=== PATIENT | female | born 1945 | race Caucasian/White ===

== ENCOUNTER 2019-10-31 20:39 | Observation (INO) | payer MEDICARE, SELFPAY ==
[2019-10-31] VITALS (9 sets, daily range): BP systolic 139–188; BP diastolic 63–100; PULSE 65–91; RESP 18–22; TEMP 36.4–36.6; O2SAT 97–99; BMI 35.9
--- NOTE | ~2019-10-31 | XR_ITS ---
EXAMINATION: XR chest 2V DATE: 10/31/2019 22:20 INDICATION: Left-sided chest pain TECHNIQUE: AP and lateral views of the chest are obtained. COMPARISON: 12/31/2018 FINDINGS: The lungs are free of acute opacities. There is no pleural effusion or pneumothorax. The ca rdiomediastinal silhouette is normal. There is mild thoracic spondylosis. IMPRESSION: 1. No acute cardiopulmonary abnormality. Reviewed, dictated and finalized at location A.
--- NOTE | 2019-10-31 20:50 | ECG_ITS ---
Measurements Intervals [place] Rate: 62 P: 160 MO: 159 QRS: 179 QRSD: 95 T: 148 QT: 393 QTc: 401 Interpretive Statements SINUS RHYTHM LIMB LEAD REVERSAL BASELINE ARTIFACT- II, III, AVF ATYPICAL ECG Electronically Signed On 11-01-2019 8:30:11 CDT by Jack Baker D.O.
--- NOTE | 2019-10-31 20:53 | ED.CHESTPAIN ---
HPI - Chest Pain General Chief Complaint: Chest Pain Stated Complaint: heart palpitation Time Seen by Provider: 10/31/19 20:51 Source: patient Mode of arrival: ambulatory Limitations: no limitations History of Present Illness HPI narrative: Patient is a 74-year-old female who presents to the emergency department with complaint of chest pain. She reports onset of symptoms around 1800 this evening. She locates the pain in the left side of her chest and describes it as a pressure. Patient is denying any other associated symptoms and denies any known cardiac history. Patient states the pain is still present, but better than when it started. complaint: chest pain Timing of current episode: still present Pain radiation: none Quality: other (pressure) Relieving factors: nothing Exacerbating factors: nothing Treatment prior to arrival: none Risk Factors Coronary artery disease risk factors: diabetes, hyperlipidemia and hypertension Related Data Home Medications Medication Instructions Recorded Confirmed fluphenazine HCl 5 mg tablet 5 mg PO BID tablet 06/24/19 10/31/19 insulin aspar prt-insulin aspart 90 unit SUB-Q QPM ml 06/24/19 10/31/19 100 unit/mL (70-30) subcutaneous soln sertraline 25 mg tablet 25 mg PO DAILY 09/07/19 10/31/19 Allergies Allergy/AdvReac Type Severity Reaction Status Date / Time No Known Allergies Allergy Verified 10/31/19 22:37 Review of Systems Review of Systems: All systems reviewed & are unremarkable except as noted in HPI and below Constitutional: Constitutional: Denies fever(s) Cardiovascular: Cardiovascular: Reports chest pain Respiratory: Respiratory: Denies cough and Denies dyspnea Gastrointestinal: Gastrointestinal: Denies nausea and Denies vomiting [facility] Past Medical History Medical History Alzheimer's dementia Diabetic peripheral neuropathy Fatty liver GERD (gastroesophageal reflux disease) Hemiparesis History of stroke with current residual effects HLD (hyperlipidemia) HTN (hypertension), benign Hypothyroidism Iron deficiency anemia Long-term insulin use MDD (major depressive disorder) Seizure disorder Type 2 diabetes mellitus without complications Surgical History Surgical History History of tubal ligation Family History Family History Father Family history of malignant neoplasm, Onset Age: 74 Patient's father is Family history of arthritis Family history of congestive heart failure Family history of heart disease in male family member before age 55 Family history of coronary artery disease Mother Family history of malignant neoplasm of brain, Onset Age: 65 Patient's mother is Depression Family history of lung cancer Family history of lung disease Family history of malignant neoplasm of breast in first degree relative Sibling Family history of cataracts Family history of kidney disease Family history of heart disease in male family member before age 55 Other Diabetes mellitus Social History Social History Smoking packs per day: 0 Smoking cigarettes per day: 0.0 Years smoked: 0 Smoking pack-years: 0.00 Smoking status: Never smoker Second hand tobacco smoke exposure: No Alcohol intake: never Drinks per week: 0 Substance use: never Substance use type: does not use Gender identity (if verbalized by the patient): Female Exam Const: General: cooperative, no acute distress and alert Nutritional Appearance: well nourished Orientation/consciousness: patient oriented x3 Limitations: no limitations HENMT: Mouth: Yes lip normal and Yes moist mucous membranes Resp: Effort & Inspection: normal respiratory effort Auscultation: clear to auscultation bilaterally Cardio:
[2019-10-31 20:58] LABS: Basophils Absolute Auto 0.1 K/mm3 (0.0-0.1); Basophils Percent Auto 0.5 % (0.2-1.2); Eosinophils Absolute Auto 0.2 K/mm3 (0-0.3); Eosinophils Percent Auto 1.6 % (0-4.4); Hematocrit 38.4 % (37.0-47.0); Hemoglobin 12.1 g/dL (12.0-15.0); Immature Granulocyte Absolute 0.02 K/mm3 (0.00-0.031); Immature Granulocyte Percent A 0.2 % (0-0.5); Lymphocytes Percent Auto 53.8 % (18.3-44.2); Mean Corpuscular HGB Conc 31.5 g/dl (32-36); Mean Corpuscular Hemoglobin 28.4 pg (26-34); Mean Corpuscular Volume 90.1 fl (80-100); Mean Platelet Volume 10.8 fl (7.4-10.4); Monocytes Absolute Auto 0.8 K/mm3 (0.1-0.6); Monocytes Percent Auto 8.3 % (2.6-8.5); Neutrophils Absolute Auto 3.2 K/mm3 (1.3-6.7); Neutrophils Percent Auto 35.6 % (45.5-73.1); Platelet Count Result 256 k/mm3 (150-375); Red Blood Count 4.26 M/mm3 (4.2-5.4); Red Cell Distribution Width 12.8 % (11.5-14.5); White Blood Count 9.1 K/mm3 (4.5-10.0)
[2019-10-31] MEDS: ASPIRIN 81 MG CHEWABLE TABLET 324 MG PO (21:07)
[2019-10-31 21:08] LABS: Prothrombin Time 12.9 Seconds (11.1-14.7)
[2019-10-31 21:09] LABS: Partial Thromboplastin Time 31.2 SECONDS (22.3-36.8)
[2019-10-31 21:10] LABS: Blood Urea Nitrogen 11 mg/dL (7-17); Calcium 9.5 mg/dL (8.4-10.2); Carbon Dioxide 31 mmol/L (22-30); Chloride 95 mmol/L (98-107); Estimated Glomerular Filt Rate > 60; Glucose 250 mg/dL (65-105); Potassium 3.5 mmol/L (3.4-5.0); Sodium 137 mmol/L (137-145)
[2019-10-31 21:22] LABS: Troponin I < 0.012 ng/mL (0.000-0.034)
[2019-11-01] VITALS (7 sets, daily range): BP systolic 121–133; BP diastolic 52–63; PULSE 60–77; RESP 16–18; TEMP 35.9–36.1; O2SAT 18–97
--- NOTE | 2019-11-01 00:30 | PC.NURSE ---
This patient, Gaye Roger, was admitted to IMU Room 203-01. Patient/family oriented to hospital policies and general routines including ID bracelet, bed and alarms, visiting hours, pain management, procedures, bathroom and other care routines, personal items, smoking policy, room service/diet, and visiting hours. Valuables list has been completed. Patient encouraged to report perceived risks to care and to ask questions if they do not understand what they are told or what they should do.
[2019-11-01 00:35] LABS: Troponin I < 0.012 ng/mL (0.000-0.034)
[2019-11-01 00:44] LABS: Glucose Point of Care 130 (65-105)
--- NOTE | 2019-11-01 01:06 | PM.IMHP ---
H&P: HPI History of Present Illness Chief complaint: Left shoulder pain+ Narrative: This is a 74 year old Diabetic Female with known HTN, hypothyroidism, and hyperlipidemia who presented to the hospital tonight with a complaint of left shoulder and left lateral chest wall discomfort that started earlier yesterday afternoon. The patient's discomfort worsens with any movement of her left arm. She denies any recent falls or trauma to her left arm. She also denies any recent repetitive activity involving her left arm. The patient has no previous history of CAD+. She is known to have a systolic heart murmur for many years. She denies any associated symptoms tonight. The patient was evaluated in the ER and was treated with aspirin and nitro. Cardiology was consulted by ER provider. Her troponin has been negative and EKG is unremarkable. We have been asked to admit the patient to the hospital for chest pain rule out. On further questioning she denies any other symptoms. No history of early CAD+ in her family and the patient has no history of tobacco abuse. Review of Systems Review of Systems: All systems reviewed & are unremarkable except as noted in HPI and below PMFSH Past Medical History Medical History Alzheimer's dementia Diabetic peripheral neuropathy Fatty liver GERD (gastroesophageal reflux disease) Hemiparesis History of stroke with current residual effects HLD (hyperlipidemia) HTN (hypertension), benign Hypothyroidism Iron deficiency anemia Long-term insulin use MDD (major depressive disorder) Seizure disorder Type 2 diabetes mellitus without complications Surgical History Surgical History History of tubal ligation Family History Family History Father Family history of malignant neoplasm, Onset Age: 74 Patient's father is Family history of arthritis Family history of congestive heart failure Family history of heart disease in male family member before age 55 Family history of coronary artery disease Mother Family history of malignant neoplasm of brain, Onset Age: 65 Patient's mother is Depression Family history of lung cancer Family history of lung disease Family history of malignant neoplasm of breast in first degree relative Sibling Family history of cataracts Family history of kidney disease Family history of heart disease in male family member before age 55 Other Diabetes mellitus Social History Social History Smoking packs per day: 0 Smoking cigarettes per day: 0.0 Years smoked: 0 Smoking pack-years: 0.00 Smoking status: Former smoker Second hand tobacco smoke exposure: Yes Alcohol intake: never Drinks per week: 0 Substance use: never Substance use type: does not use Gender identity (if verbalized by the patient): Female Spiritual care concerns: No Meds Home Medications and Allergies Home Medications Medication Instructions Recorded Confirmed Type aspirin 325 mg tablet 325 mg PO DAILY #30 tablet 05/11/19 10/31/19 Rx metformin 1,000 mg tablet 1,000 mg PO DAILY #180 tablet 05/11/19 10/31/19 Rx omeprazole 20 mg capsule,delayed 20 mg PO DAILY #90 cap 06/03/19 10/31/19 Rx release fluphenazine HCl 5 mg tablet 5 mg PO BID tablet 06/24/19 10/31/19 History insulin aspar prt-insulin aspart 25 unit SUB-Q BID ml 06/24/19 11/01/19 History 100 unit/mL (70-30) subcutaneous soln atorvastatin 80 mg tablet 80 mg PO DAILY #90 tablet 08/31/19 10/31/19 Rx sertraline 25 mg tablet 25 mg PO DAILY 09/07/19 10/31/19 History furosemide 20 mg tablet 20 mg PO QAM #90 tablet 09/22/19 10/31/19 Rx levothyroxine 200 mcg tablet 200 mcg PO DAILY #90 tablet 09/22/19 10/31/19 Rx donepezil [Aricept] 10 mg PO QPM 11/01/19 11/01/19 History hydroxyzine HCl
[2019-11-01] MEDS: hydrOXYzine HCL 25 MG TABLET PO (01:32)
[2019-11-01] MEDS: DONEPEZIL HCL 10 MG TABLET PO (01:35)
[2019-11-01 03:12] LABS: Blood Urea Nitrogen 12 mg/dL (7-17); Calcium 9.2 mg/dL (8.4-10.2); Carbon Dioxide 28 mmol/L (22-30); Chloride 99 mmol/L (98-107); Cholesterol 171 mg/dL (0-200); Estimated CRCL calculation 64 ml/min; Estimated Glomerular Filt Rate > 60; Glucose 93 mg/dL (65-105); HDL Direct 54 mg/dL; Potassium 3.5 mmol/L (3.4-5.0); Sodium 137 mmol/L (137-145); Triglycerides 202 mg/dL (<150)
[2019-11-01 03:23] LABS: LDL Cholesterol Direct 84 mg/dL; Troponin I < 0.012 ng/mL (0.000-0.034)
[2019-11-01] MEDS: LEVOTHYROXINE SODIUM 100 MCG TABLET 200 MCG PO (06:35)
[2019-11-01 08:27] LABS: Glucose Point of Care 117 (65-105)
--- NOTE | 2019-11-01 09:10 | PM.DS ---
DS: Diagnosis Admitting Diagnosis Admitting Diagnosis: Pain in left shoulder Discharge Diagnosis (1) Left shoulder pain: Qualifiers: Chronicity: acute Qualified Code(s): M25.512 - Pain in left shoulder Code(s): M25.512 - Pain in left shoulder Status: Acute Assessment and Plan: Likely secondary to tenditinitis as the patient's left shoulder pain is easily reproducible with LUE maneuvers. ACS less likely as troponins were negative and ECG unremarkable. Patient states she never had any chest pain, and that it was mainly her shoulder pain Pain control as needed. Will provide referrals to Ortho in outpatient setting for evaluation and likely shoulder steroid injection. Also will give her the option of seeing her PCP first. As ACS unlikely, will inform Cardiology to not see patient Discharge home today (2) Chest pain: Qualifiers: Chest pain type: unspecified Qualified Code(s): R07.9 - Chest pain, unspecified Code(s): R07.9 - Chest pain, unspecified Status: Acute Assessment and Plan: Patient denies any chest pain today; she denies chest pain yesterday. Although patient does have dementia. In any regard, serial troponins negative, ECG unremarkable, CXR unremarkable. This appears more MSK in nature and localized to her left shoulder with manipulation of her shoulder Cardiology consult d/c F/u with PCP as outpatient Triglycerides elevated this stay, f/u with PCP (3) Chronic GERD: Code(s): K21.9 - Gastro-esophageal reflux disease without esophagitis Status: Chronic Assessment and Plan: Continue PPI therapy. (4) HLD (hyperlipidemia): Qualifiers: Hyperlipidemia type: unspecified Qualified Code(s): E78.5 - Hyperlipidemia, unspecified Code(s): E78.5 - Hyperlipidemia, unspecified Status: Chronic Assessment and Plan: Continue atorvastatin. (5) HTN (hypertension), benign: Code(s): I10 - Essential (primary) hypertension Status: Chronic Assessment and Plan: stable. BP 120s sys Continue losartan PO (6) Hypothyroidism: Qualifiers: Hypothyroidism type: unspecified Qualified Code(s): E03.9 - Hypothyroidism, unspecified Code(s): E03.9 - Hypothyroidism, unspecified Status: Chronic Assessment and Plan: Continue levothyroxine. (7) MDD (major depressive disorder): Qualifiers: Active/Remission status: remission status unspecified Major depression recurrence: unspecified whether recurrent Qualified Code(s): F32.9 - Major depressive disorder, single episode, unspecified Code(s): F32.9 - Major depressive disorder, single episode, unspecified Status: Chronic Assessment and Plan: Continue home antidepressants. (8) Seizure disorder: Code(s): G40.909 - Epilepsy, unspecified, not intractable, without status epilepticus Status: Chronic Assessment and Plan: Continue home meds. (9) Diabetes mellitus: Qualifiers: Diabetes mellitus complication status: without complication Diabetes mellitus supervisor intermediates insulin use: with snf use Diabetes mellitus type: type 2 Qualified Code(s): E11.9 - Type 2 diabetes mellitus without complications; Z79.4 - skilled nursing (current) use of insulin Code(s): E11.9 - Type 2 diabetes mellitus without complications Status: Chronic Assessment and Plan: BGL 117 this morning; morning 70/30 insulin lowered to 20 units this morning Accuchecks, SSI Coverage, Hypoglycemic protocol during stay Continue oral hyperglycemic agents and insulin at regular dosage Recommended patie
--- NOTE | 2019-11-25 11:30 | PM.PNCARD ---
Progress Note: A&P Additional Plan 74-year-old patient admitted with shoulder pain prompting cardiology consult from the emergency room staff. Hospitalist jorge is was confident this was not a cardiac problem and discharge the patient before I had the opportunity to see the patient Nic Lees MD [facility] Subjective Date/time seen: 11/25/19 11:30 Interval history: Consulted to see patient to was not to seen as she was discharged by the primary service prior to me making rounds Objective Data Meds/Results Radiology Results: ITS Impressions Chest X-Ray 11/01/19 08:08 IMPRESSION: 1. No acute cardiopulmonary abnormality. Quality VTE Prophylaxis VTE prophylaxis: mechanical ordered
== END 2019-11-01 10:12 | disposition home or self-care (01) ==
LOC: ANHED 23:04 → ANHIMU 23:10
PROVIDERS: Admitting Provider Family Medicine; Emergency Provider Emergency Medicine; PCP Family Medicine; Visit Provider Physician Assistant
DX: M25.512 Pain in left shoulder (principal); R07.89 Other chest pain; K21.9 Gastro-esophageal reflux disease without esophagitis; E78.5 Hyperlipidemia, unspecified; I10 Essential (primary) hypertension; E03.9 Hypothyroidism, unspecified; F32.9 Major depressive disorder, single episode, unspecified; G40.909 Epilepsy, unspecified, not intractable, without status epilepticus; E11.42 Type 2 diabetes mellitus with diabetic polyneuropathy; G30.9 Alzheimer's disease, unspecified; F02.80 Dementia in other diseases classified elsewhere, unspecified severity, without behavioral disturbance, psychotic disturbance, mood disturbance, and anxiety; Z79.4 Long term (current) use of insulin; Z79.82 Long term (current) use of aspirin; Z79.899 Other long term (current) drug therapy; Z87.891 Personal history of nicotine dependence; Z86.73 Personal history of transient ischemic attack (TIA), and cerebral infarction without residual deficits
CPT/HCPCS: 36415; 71046; 80048; 80061; 84484; 85025; 85610; 85730; 93005; 99285; A9270; G0378; J1815

== ENCOUNTER 2019-12-06 18:59 | Emergency (ER) | payer MEDICARE, SELFPAY ==
--- NOTE | ~2019-12-06 | XR_ITS ---
EXAMINATION: XR wrist LT min 3V DATE: 12/06/2019 19:24 INDICATION: Left wrist pain post fall TECHNIQUE: Posteroanterior, ulnar deviation, oblique, and lateral views of the left wrist were obtain ed. COMPARISON: none FINDINGS: Alignment is normal. There is an irregular thick contiguous appearing cortical contour along the radi al styloid process. No evident disruption of the cortex or linear lucency to suggest fracture. There is however overlying mild soft tissue swelling. No other lesions suspicious for fracture identified. 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 Moderate osteoarthritis at the fifth meta carpophalangeal joint. Mild osteoarthritis at the radiocarpal, midcarpal, triscaphe, first interphala ngeal and remaining metacarpophalangeal joints. IMPRESSION: 1. Mild soft tissue swelling overlying the radial styloid process demonstrates an irregular but intac t appearing cortical contour without a definitive fracture. Correlate for point tenderness at this lo cation. Reviewed, dictated and finalized at location A. IMPRESSION: 1. Mild soft tissue swelling overlying the radial styloid process demonstrates an irregular but intact appearing cortical contour without a definitive fractur e. Correlate for point tenderness at this location.
--- NOTE | 2019-12-06 19:04 | ED.GENADULT ---
HPI - General Adult General Chief complaint: Extremity Injury, Upper Stated complaint: left wrist injury Time Seen by Provider: 12/06/19 19:15 Source: patient Mode of arrival: ambulatory Limitations: no limitations History of Present Illness HPI narrative: 74-year-old female patient with a history of Alzheimer's, presents the express care accompanied by her daughter with complaints of left wrist pain. Patient's daughter states that that her mother called her today stating she needed to be seen because her left wrist was hurting after a fall. The details of her fall are unclear. Patient unable to tell me how she fell. Unable to tell me if she hit her head or not. Patient states that she did lose consciousness but then comes back and says she does not think she did. Patient unable to tell me at what time of the day that she fell. The daughter states that she lives at home with her father however her father tends not to take care of her believe her when she does complain of anything. Patient is guarding her left wrist at this time. Related Data Home Medications Medication Instructions Recorded Confirmed fluphenazine HCl 5 mg tablet 5 mg PO BID tablet 06/24/19 10/31/19 insulin aspar prt-insulin aspart 25 unit SUB-Q BID ml 06/24/19 11/01/19 100 unit/mL (70-30) subcutaneous soln sertraline 25 mg tablet 25 mg PO DAILY 09/07/19 10/31/19 donepezil [Aricept] 10 mg PO QPM 11/01/19 11/01/19 hydroxyzine HCl 25 mg PO HS PRN 11/01/19 11/01/19 losartan 50 mg PO DAILY 11/01/19 10/31/19 Allergies Allergy/AdvReac Type Severity Reaction Status Date / Time No Known Allergies Allergy Verified 12/06/19 19:32 Review of Systems Review of Systems: Narrative: CONSTITUTIONAL: Denies fever, chills, or sweats. EYES: Denies visual changes, redness, or discharge. ENT: Denies rhinorrhea, congestion, sore throat, or otalgia. CARDIOVASCULAR: Denies chest pain, palpitations, or edema. RESPIRATORY: Denies cough or dyspnea. GASTROINTESTINAL: Denies abdominal pain, nausea, vomiting, or diarrhea. GENITOURINARY: Denies dysuria or hematuria. SKIN: Denies rash or itching. MUSCULOSKELETAL: Denies back pain, joint pain, or myalgia. Positive left wrist NEUROLOGIC: Denies headache, numbness, or weakness. PSYCHIATRIC: Denies anxiety or depression. [facility] Past Medical History Medical History Alzheimer's dementia Diabetic peripheral neuropathy Fatty liver GERD (gastroesophageal reflux disease) Hemiparesis History of stroke with current residual effects HLD (hyperlipidemia) HTN (hypertension), benign Hypothyroidism Iron deficiency anemia Long-term insulin use MDD (major depressive disorder) Seizure disorder Type 2 diabetes mellitus without complications Surgical History Surgical History History of tubal ligation Family History Family History Father Family history of malignant neoplasm, Onset Age: 74 Patient's father is Family history of arthritis Family history of congestive heart failure Family history of heart disease in male family member before age 55 Family history of coronary artery disease Mother Family history of malignant neoplasm of brain, Onset Age: 65 Patient's mother is Depression Family history of lung cancer Family history of lung disease Family history of malignant neoplasm of breast in first degree relative Sibling Family history of cataracts Family history of kidney disease Family history of heart disease in male family member before age 55 Other Diabetes mellitus Social History Social History Smoking packs per day: 0 Smoking cigarettes per day: 0.0 Years smoked: 0 Smoking pack-years: 0.00 Smoking status: Former smoker Second hand tobacco smoke exposure: Yes
[2019-12-06 19:12] VITALS: BP 146/74; PULSE 108; RESP 18; TEMP 37.2; O2SAT 97
[2019-12-06 19:32] LABS: Glucose Point of Care 306 (65-105)
== END 2019-12-06 20:44 | disposition short-term general hospital (02) ==
PROVIDERS: Emergency Provider Nurse Practitioner Family; PCP Family Medicine
DX: S63.502A Unspecified sprain of left wrist, initial encounter (principal); G30.9 Alzheimer's disease, unspecified; F02.80 Dementia in other diseases classified elsewhere, unspecified severity, without behavioral disturbance, psychotic disturbance, mood disturbance, and anxiety; E11.42 Type 2 diabetes mellitus with diabetic polyneuropathy; I10 Essential (primary) hypertension; E03.9 Hypothyroidism, unspecified; Z79.4 Long term (current) use of insulin; G40.909 Epilepsy, unspecified, not intractable, without status epilepticus; W19.XXXA Unspecified fall, initial encounter
CPT/HCPCS: 73110; 99213; G0463

== ENCOUNTER 2022-09-28 00:55 | Day surgery (SDC) | payer MEDICARE, SELFPAY ==
[2022-09-14 14:01] VITALS: BMI 34.4
[2022-09-28 06:27] VITALS: BP 143/75; PULSE 90; RESP 20; TEMP 36.2; O2SAT 100; BMI 34.6
[2022-09-28] MEDS: LACTATED RINGERS 1,000 ML 150 ML IV CONT (06:39)
[2022-09-28 06:42] LABS: Glucose Point of Care 129 mg/dl (65-105)
--- NOTE | 2022-09-28 06:52 | WPDANESEPPF ---
Anes - Initial Pre Proc Eval Procedure: Operation Date: 09/28/22 07:30 Proposed Procedures p Colonoscopy - Orlando Aleman MD Date/Time: 09/28/22 06:52 Surgeon: Orlando Aleman MD Pre Op Diagnosis: RLQP, LLQP, other fecal abnormalities Patient Data Age: 77 Gender: F Height: 1.63 m Weight: 91.5 kg Last Vital Signs Temp 36.2 C L 09/28/22 06:27 Pulse 90 09/28/22 06:27 Resp 20 09/28/22 06:27 BP 143/75 H 09/28/22 06:27 Pulse Ox 100 09/28/22 06:27 O2 Del Method Room Air 09/28/22 06:27 Allergies Allergy/AdvReac Type Severity Reaction Status Date / Time No Known Allergies Allergy Verified 09/28/22 06:25 Home Medications Medication Instructions Recorded Confirmed Type insulin aspar prt-insulin aspart 25 unit subcut BID 06/24/19 09/14/22 History 100 unit/mL (70-30) subcutaneous soln (Novolog Mix 70-30 U-100 Insuln) hydroxyzine HCl 25 mg tablet 25 mg PO HS PRN Sleep 11/01/19 09/14/22 History donepezil 10 mg tablet (Aricept) 10 mg PO QPM #90 tabs 04/19/20 09/14/22 Rx fluphenazine HCl 5 mg tablet 2.5 mg PO BID 01/31/21 09/14/22 History aspirin 81 mg tablet,delayed 81 mg PO DAILY 05/01/21 09/14/22 History release (Adult Aspirin Regimen) ferrous sulfate 325 mg (65 mg 325 mg PO DAILY #90 tabs 05/01/21 09/14/22 Rx iron) tablet,delayed release sertraline 25 mg tablet (Zoloft) 12.5 mg PO DAILY 06/05/21 09/14/22 History losartan 100 mg tablet See Rx Instructions .Route 09/06/21 09/14/22 Rx .COMPLEX #90 tabs furosemide 20 mg tablet See Rx Instructions .Route 01/22/22 09/14/22 Rx .COMPLEX #90 tabs levothyroxine 125 mcg tablet 125 mcg PO DAILY #90 tabs 05/03/22 09/14/22 Rx lidocaine 5 % topical patch 1 patch topical DAILY PRN pain #15 07/30/22 09/14/22 Rx ea dicyclomine 10 mg capsule 10 mg PO TID PRN abdominal 09/05/22 09/14/22 Rx discomfort #90 caps atorvastatin 80 mg tablet See Rx Instructions .Route 09/14/22 09/14/22 Rx .COMPLEX #90 tabs metformin 1,000 mg tablet See Rx Instructions .Route 09/14/22 09/14/22 Rx .COMPLEX #180 tabs omeprazole 20 mg capsule,delayed See Rx Instructions .Route 09/14/22 09/14/22 Rx release .COMPLEX #90 caps blood-glucose meter (ReliOn Prime #1 ea 09/27/22 Rx Meter) Laboratory Tests 09/28/22 06:37 POC Capillary Glucose 129 mg/dl H mg/dl (65-105) Patient hx anesthesia problems: none Family hx anesthesia problems: none Results Review: All pre-operative results and documents have been reviewed as part of the pre-operative evaluation. [facility] Past Medical History Medical History (Updated 09/05/22 @ 16:[address] Ramirez APN-[place]) Alzheimer's dementia Bilateral lower abdominal cramping Diabetic peripheral neuropathy Fall Fatty liver GERD (gastroesophageal reflux disease) Hemiparesis History of stroke with current residual effects HLD (hyperlipidemia) HTN (hypertension), benign Hypothyroidism Iron deficiency anemia Left wrist pain Long-term insulin use Loose stools MDD (major depressive disorder) Obesity Seizure disorder Type 2 diabetes mellitus without complications Surgical History Surgical History History of tubal ligation Family History Family History Father Family history of malignant neoplasm, Onset Age: 74 Patient's father is Family history of arthritis Family history of congestive heart failure Family history of heart disease in male family member before age 55 Family history of coronary artery disease Mother Family history of malignant neoplasm of brain, Onset Age: 65 Patient's mother is Depression Family history of lung cancer Family history of lung disease Family history of malignant neoplasm of breast in first degree relative Sibling Family history of cataracts Family history of kidney disease Family history of heart disease in male f
--- NOTE | 2022-09-28 07:37 | WPDHPUPDATE1 ---
History and Physical Update Update Date/Time: 09/28/22 07:37 History and Physical has been reviewed, including an updated exam of the patient. There are NO changes in the patient's condition. Risks, benefits, and alternatives have been discussed and questions answered. Patient agrees to proceed with procedure.
[2022-09-28 07:54] VITALS: BP 114/58; PULSE 68; RESP 19; O2SAT 100
[2022-09-28 08:04] VITALS: BP 118/46; PULSE 62; RESP 18; O2SAT 100
[2022-09-28 08:09] LABS: Glucose Point of Care 120 mg/dl (65-105)
[2022-09-28 08:14] VITALS: BP 128/69; PULSE 70; RESP 18; O2SAT 100
== END 2022-09-28 08:18 | disposition home or self-care (01) ==
PROVIDERS: PCP Family Medicine; Visit Provider Internal Medicine Gastroenterology
PROC: 0DJD8ZZ Inspection of Lower Intestinal Tract, Via Natural or Artificial Opening Endoscopic (ICD-10-PCS; CPT 45378; principal; 2022-09-28 07:30)
DX: R10.84 Generalized abdominal pain (principal); R19.5 Other fecal abnormalities; K64.8 Other hemorrhoids; G30.9 Alzheimer's disease, unspecified; F02.80 Dementia in other diseases classified elsewhere, unspecified severity, without behavioral disturbance, psychotic disturbance, mood disturbance, and anxiety; E11.42 Type 2 diabetes mellitus with diabetic polyneuropathy; K21.9 Gastro-esophageal reflux disease without esophagitis; I10 Essential (primary) hypertension; E78.5 Hyperlipidemia, unspecified; E03.9 Hypothyroidism, unspecified; D50.9 Iron deficiency anemia, unspecified; F32.A Depression, unspecified; K76.0 Fatty (change of) liver, not elsewhere classified; I69.359 Hemiplegia and hemiparesis following cerebral infarction affecting unspecified side; Z79.4 Long term (current) use of insulin; Z79.82 Long term (current) use of aspirin; Z79.84 Long term (current) use of oral hypoglycemic drugs; E66.9 Obesity, unspecified; Z68.34 Body mass index [BMI] 34.0-34.9, adult
CPT/HCPCS: 45378; 82948; J2704; J7120

== ENCOUNTER → 2022-12-26 10:11 | Outpatient (CLI) | payer MEDICARE, SELFPAY ==
--- NOTE | ~2022-12-26 | DEXA_ITS ---
Bone Density Report Name: ISABEL GEORGE Age: 77 Sex: Female Ethnicity: White Date of : 1945 Indication: postmenopausal; screening for osteoporosis; height loss; inflammatory bowel disease; rheumatoid arthritis; Referring Provider: Matthew Link Study: Bone densitometry was performed. Exam Date: December 26, 2022 Accession number: [id number] Bone Density: Region BMD T-score Z-score Classification AP Spine (L1-L4) 1.221 1.6 4.0 Normal Femoral Neck (Left) 0.746 -0.9 1.2 Normal Total Hip (Left) 1.082 1.2 3.0 Normal Femoral Neck (Right) 0.741 -1.0 1.1 Normal Total Hip (Right) 1.059 1.0 2.8 Normal Total Hip Mean 1.071 1.1 2.9 Normal World Health Organization criteria for BMD impression classify patients as: Normal (T-score at or above -1.0), Osteopenia (T-score between -1.0 and -2.5), or Osteoporosis (T-score at or below -2.5). 10-year Fracture Risk: FRAX not reported because: All T-scores for Spine Total, Hip Total, Femoral Neck at or above -1.0 Clinical Information Provided by Patient: Has rheumatoid arthritis Has used the following medications: Vitamin D Has the following medical conditions: Inflammatory bowel diseases, asthma, no treatment,IBS Patient maximum height was 64 Menopause Age: 53 No regular weight bearing exercise Drinks caffeinated beverages Onset of menses at age 13 Number of children 3 Missed period for more than 6 months in a row Impression: The patient has normal bone mass. Discussion: BONE DENSITY IS ABOVE THE MINIMUM DESIRABLE LEVEL AT ALL SKELETAL SITES TESTED. This patient?s bone mineral density is above the minimum desirable level (T-score -1.0 or better) at all sites measured. The patient should follow a healthful lifestyle (good nutrition with adequate calcium and vitamin D, and appropriate weight-bearing exercise). Follow-Up: Consider repeating this study in 5 years or sooner if there is some new clinical indication. Reported by: CRISTOBAL on 12/26/2022 10:47:00 AM. Reviewed, dictated and finalized [facility]
== END ==
PROVIDERS: PCP Family Medicine; Visit Provider Obstetrics & Gynecology
DX: M81.0 Age-related osteoporosis without current pathological fracture (principal)
CPT/HCPCS: 77080

== ENCOUNTER 2023-01-26 14:23 | Emergency (ER) | payer MEDICARE, SELFPAY ==
--- NOTE | ~2023-01-26 | XR_ITS ---
EXAMINATION: XR chest 2V Exam Date/Time: 01/26/2023 15:20 CDT HISTORY: SOB,CONGESTION Comparison: 10/31/2019. RESULT: Lines, tubes, and devices: None. Lungs and pleura: Diffuse interstitial opacities with cuffing. No focal consolidation. Apparent cindy pheral opacities likely related to summation artifact from soft tissues. Cardiomediastinal silhouette: Stable. Other: No acute osseous or upper abdominal finding. IMPRESSION: Interstitial edema. Reviewed, dictated and finalized at location [facility]. IMPRESSION: Interstitial edema.
[2023-01-26 14:40] VITALS: BP 108/46; PULSE 67; RESP 20; TEMP 36.6; O2SAT 98
--- NOTE | 2023-01-26 15:05 | ED.URI ---
HPI - URI/Sore Throat General Chief Complaint: Upper Respiratory Infection Stated Complaint: Sinus/SOB Time Seen by Provider: 01/26/23 15:05 Source: patient Mode of arrival: ambulatory Limitations: no limitations History of Present Illness HPI Narrative: 77-year-old female presents with complaint of nasal congestion, sore throat, cough, fatigue and body aches for 2 days. Afebrile. Denies chest pain and shortness of breath. Patient's daughter states giving vhvf-oqv-qusxynn Robitussin, Mucinex. Denies nausea vomiting diarrhea. Patient's daughter states patient lays in bed often and is concerned congestion will settle and chest and cause pneumonia. Also requesting stronger cough suppressant. Patient alert. No respiratory distress noted. All systems reviewed and negative except as noted above. Related Data Home Medications Medication Instructions Recorded Confirmed insulin aspar prt-insulin aspart 25 unit subcut BID 06/24/19 01/26/23 100 unit/mL (70-30) subcutaneous soln (Novolog Mix 70-30 U-100 Insuln) hydroxyzine HCl 25 mg tablet 25 mg PO HS PRN Sleep 11/01/19 01/26/23 fluphenazine HCl 5 mg tablet 2.5 mg PO BID 01/31/21 01/26/23 aspirin 81 mg tablet,delayed 81 mg PO DAILY 05/01/21 01/26/23 release (Adult Aspirin Regimen) sertraline 25 mg tablet (Zoloft) 12.5 mg PO DAILY 06/05/21 01/26/23 Allergies Allergy/AdvReac Type Severity Reaction Status Date / Time No Known Allergies Allergy Verified 01/26/23 14:41 Review of Systems Review of Systems: CONSTITUTIONAL: Denies fever, chills, or sweats. EYES: Denies visual changes, redness, or discharge. ENT: Reports rhinorrhea, congestion, sore throat. Denies otalgia. CARDIOVASCULAR: Denies chest pain, palpitations, or edema. RESPIRATORY: reports cough. Denies dyspnea. GASTROINTESTINAL: Denies abdominal pain, nausea, vomiting, or diarrhea. GENITOURINARY: Denies dysuria or hematuria. SKIN: Denies rash or itching. MUSCULOSKELETAL: Denies back pain, joint pain. Reports myalgia. NEUROLOGIC: Denies headache, numbness, or weakness. PSYCHIATRIC: Denies anxiety or depression. All other systems reviewed are negative, except as documented in HPI. PMFSH Past Medical History Medical History Alzheimer's dementia Bilateral lower abdominal cramping Diabetic peripheral neuropathy Fall Fatty liver GERD (gastroesophageal reflux disease) Hemiparesis History of stroke with current residual effects HLD (hyperlipidemia) HTN (hypertension), benign Hypothyroidism Iron deficiency anemia Left wrist pain Long-term insulin use Loose stools MDD (major depressive disorder) Obesity Seizure disorder Type 2 diabetes mellitus without complications Surgical History Surgical History History of tubal ligation Family History Family History Father Family history of malignant neoplasm, Onset Age: 74 Patient's father is Family history of arthritis Family history of congestive heart failure Family history of heart disease in male family member before age 55 Family history of coronary artery disease Mother Family history of malignant neoplasm of brain, Onset Age: 65 Patient's mother is Depression Family history of lung cancer Family history of lung disease Family history of malignant neoplasm of breast in first degree relative Sibling Family history of cataracts Family history of kidney disease Family history of heart disease in male family member before age 55 Other Diabetes mellitus Social History Social History Smoking packs per day: 0 Smoking cigarettes per day: 0.0 Years smoked: 0 Smoking pack-years: 0.00 Smoking status: Never smoker Second hand tobacco smoke exposure: Yes Alcohol intake: never Drinks p
== END 2023-01-26 16:10 | disposition home or self-care (01) ==
PROVIDERS: Emergency Provider Nurse Practitioner Family; PCP Family Medicine
DX: J06.9 Acute upper respiratory infection, unspecified (principal); Z20.822 Contact with and (suspected) exposure to COVID-19; G30.9 Alzheimer's disease, unspecified; F02.80 Dementia in other diseases classified elsewhere, unspecified severity, without behavioral disturbance, psychotic disturbance, mood disturbance, and anxiety; E11.42 Type 2 diabetes mellitus with diabetic polyneuropathy; K76.0 Fatty (change of) liver, not elsewhere classified; K21.9 Gastro-esophageal reflux disease without esophagitis; Z86.73 Personal history of transient ischemic attack (TIA), and cerebral infarction without residual deficits; E78.5 Hyperlipidemia, unspecified; I10 Essential (primary) hypertension; E03.9 Hypothyroidism, unspecified; E66.9 Obesity, unspecified; Z68.35 Body mass index [BMI] 35.0-35.9, adult; Z79.4 Long term (current) use of insulin; Z79.82 Long term (current) use of aspirin; F32.9 Major depressive disorder, single episode, unspecified; D50.9 Iron deficiency anemia, unspecified
CPT/HCPCS: 71046; 87426; 99213; C9803; G0463

== ENCOUNTER 2023-01-29 15:49 | Outpatient (CLI) | payer MEDICARE, SELFPAY ==
--- NOTE | ~2023-01-29 | US_ITS ---
Ultrasound of the left lower extremity CLINICAL HISTORY: Left anterior castro mass TECHNIQUE: Real-time sonographic imaging performed in the area of clinical concern. FINDINGS: There is more prominent, somewhat echogenic soft tissue superficially at the anterior left castro at the area of clinical concern. No posterior shadowing or heterogeneity evident. IMPRESSION: More prominent echogenic soft tissues superficially at the anterior left castro as compared to the righ t side. Large lipoma or other fatty lesion are considerations. Consider MR to better assess signal ch aracteristics of any mass lesion. Reviewed, dictated and finalized at location . IMPRESSION: More prominent echogenic soft tissues superficially at the anterior left castro a s compared to the right side. Large lipoma or other fatty lesion are considerat ions. Consider MR to better assess signal characteristics of any mass lesion.
== END 2023-01-29 15:50 | disposition home or self-care (01) ==
PROVIDERS: PCP Family Medicine; Visit Provider Family Medicine
DX: R22.42 Localized swelling, mass and lump, left lower limb (principal); M79.605 Pain in left leg
CPT/HCPCS: 76882

== ENCOUNTER 2023-02-09 10:50 | Outpatient (CLI) | payer MEDICARE, SELFPAY ==
--- NOTE | ~2023-02-09 | MR_ITS ---
MRI of the left lower extremity CLINICAL HISTORY: Swelling, mass TECHNIQUE: Sagittal T1-weighted and STIR images, coronal T1-weighted and STIR images, and axial T1-we ighted, T1 fat-sat, and STIR images were performed. Following intravenous administration of 15 cc Mul tiHance gadolinium, T1-weighted fat-sat imaging was performed in the axial and coronal planes. FINDINGS: Bone marrow signals are unremarkable. No fracture, marrow edema, or passive reaction. No ev idence for osteomyelitis. There are probable mild degenerative changes of both knees. No joint effusi on evident. Visualized musculature in the left calf demonstrates normal signal intensity. No muscle atrophy or ed maria del carmen identified. Subcutaneous soft tissues are unremarkable. No mass lesion or fluid collection identi fied. No abnormal postcontrast enhancement identified. IMPRESSION: No abnormal mass lesion or fluid collection seen. Mild degenerative change of both knees. Reviewed, dictated and finalized at [facility].
== END 2023-02-09 10:51 | disposition home or self-care (01) ==
PROVIDERS: PCP Family Medicine; Visit Provider Family Medicine
DX: R22.42 Localized swelling, mass and lump, left lower limb (principal)
CPT/HCPCS: 73720; A9577

== ENCOUNTER 2023-06-12 09:18 | Outpatient (CLI) | payer MEDICARE, SELFPAY ==
--- NOTE | ~2023-06-12 | CT_ITS ---
CT of the Abdomen and Pelvis: Indication: Abdominal pain Technique: 2.5 mm axial scans were obtained through the abdomen and pelvis following intravenous adm inistration of 100 cc of Omnipaque 350. Dose reduction technique was used on this scan by utilizing a utomated exposure control and iterative reconstruction technique. The dose-length product (DLP) was 1 052.25 mGy-cm. Findings: Scans through the lung bases demonstrate bibasilar chronic interstitial disease. The liver, spleen, pancreas, gallbladder, adrenals and kidneys are within normal limits. There are at herosclerotic calcifications of the aorta. No lymphadenopathy. No bowel obstruction or bowel wall thickening. There is no evidence to suggest acute appendicitis. Images through the pelvis were performed. Urinary bladder unremarkable. No adnexal mass seen. No asci jermaine. Impression: No significant abnormality seen in the abdomen/pelvis. Chronic bibasilar pulmonary interstitial disease. Reviewed, dictated and finalized at [facility]. E RECEPTIONIST Impression: No significant abnormality seen in the abdomen/pelvis. Chronic bibasilar pulmonary interstitial disease.
== END 2023-06-12 09:19 | disposition home or self-care (01) ==
PROVIDERS: PCP Family Medicine; Visit Provider Nurse Practitioner Family
DX: R10.32 Left lower quadrant pain (principal); J84.9 Interstitial pulmonary disease, unspecified
CPT/HCPCS: 74177; Q9967

== ENCOUNTER 2023-07-04 10:42 | Outpatient (CLI) | payer MEDICARE, SELFPAY ==
[2023-07-04 11:23] LABS: Hematocrit 35.8 % (37.0-47.0)
== END 2023-07-04 10:43 | disposition home or self-care (01) ==
LOC: ANHLAB 10:44
PROVIDERS: PCP Family Medicine; Visit Provider Nurse Practitioner Family
DX: D64.9 Anemia, unspecified (principal)
CPT/HCPCS: 36415; 85014; 85018

== ENCOUNTER 2023-07-19 00:19 | Day surgery (SDC) | payer MEDICARE, SELFPAY ==
[2023-06-24 13:13] VITALS: BMI 35.2
--- NOTE | 2023-07-17 10:34 | SUR.PREOP ---
Patient called regarding upcoming procedure. Reviewed preop instructions, appointment times, and procedure prep.
--- NOTE | 2023-07-17 10:39 | SUR.PREOP ---
Spoke with daughter about pt's appointment.
--- NOTE | 2023-07-18 17:31 | PM.HPGS ---
History of Present Illness History of Present Illness Consent: Risks, benefits, and alternatives have been discussed and questions answered. Patient agrees to proceed with procedure. Chief complaint: GERD without esophagitis, nausea with vomiting Narrative: Gaye Roger is a 78 year old female referred for investigation of persistent nausea and vomiting Review of Systems Review of Systems: All systems reviewed & are unremarkable except as noted in HPI and below PMFSH Past Medical History Medical History Alzheimer's dementia Bilateral lower abdominal cramping Diabetic peripheral neuropathy Fall Fatty liver GERD (gastroesophageal reflux disease) Hemiparesis History of stroke with current residual effects HLD (hyperlipidemia) HTN (hypertension), benign Hypothyroidism Iron deficiency anemia Left wrist pain Long-term insulin use Loose stools MDD (major depressive disorder) Nausea vomiting and diarrhea Obesity Seizure disorder Type 2 diabetes mellitus without complications Surgical History Surgical History History of tubal ligation Family History Family History Father Family history of malignant neoplasm, Onset Age: 74 Patient's father is Family history of arthritis Family history of congestive heart failure Family history of heart disease in male family member before age 55 Family history of coronary artery disease Mother Family history of malignant neoplasm of brain, Onset Age: 65 Patient's mother is Depression Family history of lung cancer Family history of lung disease Family history of malignant neoplasm of breast in first degree relative Sibling Family history of cataracts Family history of kidney disease Family history of heart disease in male family member before age 55 Other Diabetes mellitus Social History Social History Smoking packs per day: 0 Smoking cigarettes per day: 0.0 Years smoked: 0 Smoking pack-years: 0.00 Smoking status: Never smoker Second hand tobacco smoke exposure: Yes Alcohol intake: never Drinks per week: 0 Substance use: never Substance use type: does not use Living arrangements: with family Occupation/Education: retired Gender identity (if verbalized by the patient): Female Spiritual care concerns: No Meds Home Medications and Allergies Home Medications Medication Instructions Recorded Confirmed Type insulin aspar prt-insulin aspart 25 unit subcut BID 06/24/19 07/19/23 History 100 unit/mL (70-30) subcutaneous soln (Novolog Mix 70-30 U-100 Insuln) aspirin 81 mg tablet,delayed 81 mg PO DAILY 05/01/21 07/19/23 History release (Adult Aspirin Regimen) ferrous sulfate 325 mg (65 mg 325 mg PO DAILY #90 tabs 05/01/21 07/19/23 Rx iron) tablet,delayed release sertraline 25 mg tablet (Zoloft) 12.5 mg PO DAILY 06/05/21 07/19/23 History atorvastatin 80 mg tablet See Rx Instructions .Route 09/14/22 07/19/23 Rx .COMPLEX #90 tabs blood-glucose meter (ReliOn Prime #1 ea 09/27/22 07/19/23 Rx Meter) levothyroxine 125 mcg tablet 125 mcg PO DAILY #90 tabs 12/25/22 07/19/23 Rx inhalational spacing device #1 ea 01/26/23 07/19/23 Rx (Aerochamber Plus Z Stat spacer) donepezil 10 mg tablet (Aricept) 10 mg PO QPM #90 tabs 03/28/23 07/19/23 Rx bismuth subsalicylate 262 mg/15 mL 524 mg PO QID 06/04/23 07/19/23 History oral suspension (Pepto-Bismol) omeprazole 40 mg capsule,delayed 40 mg PO DAILY 1 month #30 caps 06/05/23 07/19/23 Rx release furosemide 20 mg tablet See Rx Instructions .Route 06/10/23 07/19/23 Rx .COMPLEX #90 tabs metformin 1,000 mg tablet See Rx Instructions .Route 06/10/23 07/19/23 Rx .COMPLEX #180 tabs ondansetron HCl 4 mg tablet 4 mg PO Q8H #20 tabs
[2023-07-19] MEDS: LACTATED RINGERS 1,000 ML 150 ML IV CONT (06:47)
[2023-07-19 06:49] VITALS: BP 125/72; PULSE 96; RESP 20; TEMP 36.5; O2SAT 98; BMI 34.4
[2023-07-19 06:50] LABS: Glucose Point of Care 150 mg/dl (65-105)
--- NOTE | 2023-07-19 07:26 | WPDANESEPPF ---
Anes - Initial Pre Proc Eval Procedure: Operation Date: 07/19/23 07:30 Proposed Procedures p Esophagogastroduodenoscopy - Russ Tinajero MD Date/Time: 07/19/23 07:26 Surgeon: Russ Tinajero MD Pre Op Diagnosis: GERD without esophagitis, nausea with vomiting Patient Data Age: 78 Gender: F Height: 1.63 m Weight: 91 kg Last Vital Signs Temp 97.7 F 07/19/23 06:49 Pulse 96 07/19/23 06:49 Resp 20 07/19/23 06:49 BP 125/72 07/19/23 06:49 Pulse Ox 98 07/19/23 06:49 O2 Del Method Room Air 07/19/23 06:49 Allergies Allergy/AdvReac Type Severity Reaction Status Date / Time No Known Allergies Allergy Verified 07/19/23 06:10 Home Medications Medication Instructions Recorded Confirmed Type insulin aspar prt-insulin aspart 25 unit subcut BID 06/24/19 07/19/23 History 100 unit/mL (70-30) subcutaneous soln (Novolog Mix 70-30 U-100 Insuln) aspirin 81 mg tablet,delayed 81 mg PO DAILY 05/01/21 07/19/23 History release (Adult Aspirin Regimen) ferrous sulfate 325 mg (65 mg 325 mg PO DAILY #90 tabs 05/01/21 07/19/23 Rx iron) tablet,delayed release sertraline 25 mg tablet (Zoloft) 12.5 mg PO DAILY 06/05/21 07/19/23 History atorvastatin 80 mg tablet See Rx Instructions .Route 09/14/22 07/19/23 Rx .COMPLEX #90 tabs blood-glucose meter (ReliOn Prime #1 ea 09/27/22 07/19/23 Rx Meter) levothyroxine 125 mcg tablet 125 mcg PO DAILY #90 tabs 12/25/22 07/19/23 Rx inhalational spacing device #1 ea 01/26/23 07/19/23 Rx (Aerochamber Plus Z Stat spacer) donepezil 10 mg tablet (Aricept) 10 mg PO QPM #90 tabs 03/28/23 07/19/23 Rx bismuth subsalicylate 262 mg/15 mL 524 mg PO QID 06/04/23 07/19/23 History oral suspension (Pepto-Bismol) omeprazole 40 mg capsule,delayed 40 mg PO DAILY 1 month #30 caps 06/05/23 07/19/23 Rx release furosemide 20 mg tablet See Rx Instructions .Route 06/10/23 07/19/23 Rx .COMPLEX #90 tabs metformin 1,000 mg tablet See Rx Instructions .Route 06/10/23 07/19/23 Rx .COMPLEX #180 tabs ondansetron HCl 4 mg tablet 4 mg PO Q8H #20 tabs 07/03/23 07/19/23 Rx famotidine 40 mg tablet (Pepcid) 40 mg PO QHS 1 month #30 tabs 07/04/23 07/19/23 Rx dicyclomine 10 mg capsule See Rx Instructions .Route 07/16/23 07/19/23 Rx .COMPLEX #90 caps Laboratory Tests 07/19/23 06:45 POC Capillary Glucose 150 H mg/dl (65-105) Patient hx anesthesia problems: none Family hx anesthesia problems: none Results Review: All pre-operative results and documents have been reviewed as part of the pre-operative evaluation. [facility] Past Medical History Medical History Alzheimer's dementia Bilateral lower abdominal cramping Diabetic peripheral neuropathy Fall Fatty liver GERD (gastroesophageal reflux disease) Hemiparesis History of stroke with current residual effects HLD (hyperlipidemia) HTN (hypertension), benign Hypothyroidism Iron deficiency anemia Left wrist pain Long-term insulin use Loose stools MDD (major depressive disorder) Nausea vomiting and diarrhea Obesity Seizure disorder Type 2 diabetes mellitus without complications Surgical History Surgical History History of tubal ligation Family History Family History Father Family history of malignant neoplasm, Onset Age: 74 Patient's father is Family history of arthritis Family history of congestive heart failure Family history of heart disease in male family member before age 55 Family history of coronary artery disease Mother Family history of malignant neoplasm of brain, Onset Age: 65 Patient's mother is Depression Family history of lung cancer Family history of lung disease Family history of malignant neoplasm of breast in first degree relative Sibling Family history of cataracts Family histo
--- NOTE | 2023-07-19 07:38 | SUR.OPER ---
TOW BAR DRIVER used oral suction during procedure for excess secretions.
[2023-07-19 07:42] VITALS: BP 125/63; PULSE 79; RESP 20; O2SAT 96
[2023-07-19 07:52] VITALS: BP 121/50; PULSE 84; RESP 16; O2SAT 99
[2023-07-19 08:02] VITALS: BP 112/78; PULSE 79; RESP 16; O2SAT 99
[2023-07-19 08:07] LABS: Glucose Point of Care 132 mg/dl (65-105)
== END 2023-07-19 08:17 | disposition home or self-care (01) ==
PROVIDERS: PCP Family Medicine; Visit Provider Internal Medicine Gastroenterology
PROC: 0DJ08ZZ Inspection of Upper Intestinal Tract, Via Natural or Artificial Opening Endoscopic (ICD-10-PCS; CPT 43235; principal; 2023-07-19 07:30)
DX: K21.00 Gastro-esophageal reflux disease with esophagitis, without bleeding (principal); R11.2 Nausea with vomiting, unspecified; I10 Essential (primary) hypertension; E78.5 Hyperlipidemia, unspecified; E11.9 Type 2 diabetes mellitus without complications; G40.909 Epilepsy, unspecified, not intractable, without status epilepticus; G30.9 Alzheimer's disease, unspecified; F02.80 Dementia in other diseases classified elsewhere, unspecified severity, without behavioral disturbance, psychotic disturbance, mood disturbance, and anxiety; E03.9 Hypothyroidism, unspecified; Z79.4 Long term (current) use of insulin; E66.9 Obesity, unspecified; Z68.34 Body mass index [BMI] 34.0-34.9, adult
CPT/HCPCS: 43239; 82948; 87081; J2704; J7120

== ENCOUNTER 2023-07-24 11:53 | Outpatient (CLI) | payer MEDICARE, SELFPAY ==
[2023-07-24 12:38] LABS: Alanine Aminotransferase 20 U/L (6-35); Albumin Level 4.2 g/dL (3.5-5.1); Alkaline Phosphatase 80 U/L (38-126); Anion Gap 9 mmol/L (8-16); Aspartate Amino Transferase 29 U/L (14-36); Bilirubin,Total 0.4 mg/dL (0.2-1.3); Blood Urea Nitrogen 12 mg/dL (7-17); Calcium 9.6 mg/dL (8.4-10.2); Carbon Dioxide 28 mmol/L (22-30); Chloride 98 mmol/L (98-107); Estimated Glomerular Filt Rate 54; Glucose 217 mg/dL (65-110); Potassium 4.5 mmol/L (3.4-5.0); Sodium 135 mmol/L (137-145)
[2023-07-24 13:04] LABS: Influenza A QL RT-PCR Negative (Negative); Influenza B QL RT-PCR Negative (Negative); RSV RNA, RT-PCR Negative (Negative); SARS-CoV-2 RNA PCR Negative (Negative)
[2023-07-24 13:46] LABS: Hemoglobin A1C 6.7 % (<5.7)
== END 2023-07-24 11:54 | disposition home or self-care (01) ==
LOC: ANHLAB 11:57
PROVIDERS: PCP Family Medicine; Visit Provider Family Medicine
DX: J06.9 Acute upper respiratory infection, unspecified (principal); E03.9 Hypothyroidism, unspecified; I10 Essential (primary) hypertension; E11.9 Type 2 diabetes mellitus without complications; Z20.822 Contact with and (suspected) exposure to COVID-19
CPT/HCPCS: 36415; 80053; 83036; 84443; 87637

== ENCOUNTER 2023-08-05 09:02 | Outpatient (CLI) | payer MEDICARE, SELFPAY ==
--- NOTE | ~2023-08-05 | US_ITS ---
Limited Abdominal Sonogram: Real-time sonographic imaging of the right upper quadrant was performed. Clinical History: Nausea and vomiting Findings: The liver appears echogenic, with no evidence of mass lesion or bile duct dilatation. Main portal vein demonstrates normal direction of flow. The gallbladder is well distended, and appears no rmal with no evidence of gallstone or wall thickening. The common bile duct measures 5 mm. The visua lized pancreas, aorta, and IVC are unremarkable. Impression: Diffuse fatty infiltration of the liver. Reviewed, dictated and finalized at location M. L CEILING HANGER Impression: Diffuse fatty infiltration of the liver.
== END 2023-08-05 09:03 | disposition home or self-care (01) ==
LOC: ANHIMG 09:08
PROVIDERS: PCP Family Medicine; Visit Provider Internal Medicine Gastroenterology
DX: R11.2 Nausea with vomiting, unspecified (principal); K76.0 Fatty (change of) liver, not elsewhere classified
CPT/HCPCS: 76705

== ENCOUNTER 2023-12-25 09:27 | Outpatient (CLI) | payer MEDICARE, SELFPAY ==
--- NOTE | ~2023-12-25 | NM_ITS ---
EXAMINATION: NM hepatobiliary wo pharm DATE: 12/25/2023 13:42 INDICATION: Nausea with vomiting, unspecified. COMPARISON: CT abdomen and pelvis 06/12/23 TECHNIQUE: 5 mCi Tc-99m mebrofenin (Choletec) was administered intravenously. Scintigraphic images o f the abdomen were obtained for one hour. Then, the patient drank 8 oz Ensure, and imaging was contin ued for 60 minutes. FINDINGS: There is normal clearance of radiotracer from the blood pool. There is homogeneous tracer u ptake by the liver. Activity progresses to the bowel and gallbladder. Gallbladder ejection fraction (GBEF) was 25%. Note that with this technique, normal GBEF >= 33%. IMPRESSION: 1. Low gallbladder ejection fraction, consistent with gallbladder dysfunction and/or chronic cholecy stitis. Reviewed, dictated and finalized at location A. IMPRESSION: 1. Low gallbladder ejection fraction, consistent with gallbladder dysfunction and/or chronic cholecystitis.
== END 2023-12-25 09:28 | disposition home or self-care (01) ==
PROVIDERS: PCP Family Medicine; Visit Provider Nurse Practitioner Family
DX: K82.8 Other specified diseases of gallbladder (principal)
CPT/HCPCS: 78226; A9537

== ENCOUNTER 2024-01-22 10:11 | Outpatient (CLI) | payer MEDICARE, SELFPAY ==
--- NOTE | 2024-01-22 10:25 | ECG_ITS ---
Test Date: 2024-01-22 10:40:03 Measurements Intervals [place] Rate: 72 P: 8 NC: 164 QRS: -10 QRSD: 84 T: 15 QT: 376 QTc: 412 Interpretive Statements SINUS RHYTHM DELAYED PRECORDIAL R/S TRANSITION VOLTAGE CRITERIA FOR LVH BASELINE ARTIFACT- V4-V6 BORDERLINE ECG No previous ECG available for comparison Electronically Signed On 01-22-2024 17:36:52 CDT by Jack Baker D.O.
[2024-01-22 11:11] LABS: Hematocrit 34.7 % (37.0-47.0); Hemoglobin 10.6 g/dL (12.0-15.0)
[2024-01-22 11:21] LABS: Anion Gap 14 mmol/L (4-12); Blood Urea Nitrogen 14 mg/dL (7-17); Calcium 9.6 mg/dL (8.4-10.2); Carbon Dioxide 25 mmol/L (22-30); Chloride 95 mmol/L (98-107); Estimated Glomerular Filt Rate > 60; Glucose 167 mg/dL (65-110); Potassium 4.5 mmol/L (3.4-5.0); Sodium 134 mmol/L (137-145)
[2024-01-22 11:23] LABS: Alanine Aminotransferase 20 U/L (6-35); Albumin Level 4.8 g/dL (3.5-5.1); Alkaline Phosphatase 77 U/L (38-126); Amylase 72 U/L (30-110); Aspartate Amino Transferase 32 U/L (14-36); Bilirubin,Total 0.4 mg/dL (0.2-1.3); Lipase 94 U/L (23-300)
== END 2024-01-22 10:12 | disposition home or self-care (01) ==
LOC: ANHSURGERY 10:16
PROVIDERS: Anesthesiology; PCP Family Medicine; Visit Provider Surgery
DX: Z01.818 Encounter for other preprocedural examination (principal); I10 Essential (primary) hypertension; E11.65 Type 2 diabetes mellitus with hyperglycemia; K81.1 Chronic cholecystitis; Z78.9 Other specified health status
CPT/HCPCS: 36415; 80048; 80076; 82150; 83690; 85014; 85018; 93005

== ENCOUNTER 2024-01-27 00:25 | Day surgery (SDC) | payer MEDICARE, SELFPAY ==
--- NOTE | 2024-01-21 16:01 | PC.NURSE ---
Report to the Outpatient Waiting Room, entrance under the green pavilion located off [facility], at time _9:30 AM on date _01/27/24 . Planned Procedure Time: __11:30 AM . Time changes happen often and if your time is changed the preop area will call you the afternoon before. - You and your visitor will be asked to self-screen and do not enter if you have any COVID symptoms. - A mask is optional within the hospital at this time. Patients may have clear liquids (water, carbonated beverages, clear teas, apple juice) until 3 hours prior to surgery ( 8:30 AM)with a maximum of 20 ounces. - No food from midnight until time of surgery - Infants may have breast milk until 4 hours before surgery, infant formula 6 hours prior to surgery. - Children will be allowed to drink immediately following surgery. If applicable, please bring a bottle or sippy cup to assist with drinking. Juice, water, soda, and popsicles are readily available. For infants on formula, please bring formula the day of surgery. Pacifiers are allowed. Take the following medications with a SIP of water the morning of surgery: ___LEVOTHYROXINE, TAKE 1/2 OF AM INSULIN DOSE DO NOT STOP ANY OF YOUR OTHER PRESCRIPTION MEDICATIONS PRIOR TO SURGERY ?EXCEPT THE FOLLOWING Medications to discontinue per physician ___NONE MAY CONTINUE ASPIRIN 81 MG BUT DO NOT TAKE MORNING OF SURGERY PER DR SHIPMAN Please no make-up, nail spanish, hairspray, perfume, deodorant, or body powder the day of surgery. No jewelry (including any body piercings) or valuables the day of surgery, leave them at home. Please take a shower or bath the night before, or the morning of, surgery with an antibacterial soap. Wear comfortable, loose fitting clothing. Children are encouraged to wear pajamas. - Jewelry must be removed prior to entering the operating room. Rings and piercings that are not removed may be cut off. - The hospital will not accept responsibility for valuables. - Please leave all valuables, including medications, at home the day of surgery. If you are going home after surgery, a licensed buggy driver must drive you home. - NO public transportation without another adult if you receive anesthesia. - We recommend that an adult stay with you for 24 hours following discharge. - We also recommend that you do not drive, make important decision, drink alcoholic beverages, or take any drugs that were not prescribed by your health care provider for at least 24 hours after your discharge pool Follow any additional instructions given to you from your surgeon. If you or anyone in your household have experienced Covid symptoms in the past week, please notify your surgeon or the nurse liaison at the phone number below for possible testing. Telephone instructions given to _SPOUSE RUSSELL and asked if any additional questions and then verbalized understanding. Patient advised to call surgeon office or pre surgery nurse liaison [phone] if any additional questions.
[2024-01-21 16:46] VITALS: BMI 33.3
[2024-01-27] VITALS (10 sets, daily range): BP systolic 113–159; BP diastolic 51–86; PULSE 67–89; RESP 16–22; TEMP 36–36.4; O2SAT 96–100
--- NOTE | 2024-01-27 07:39 | WPDHPUPDATE1 ---
History and Physical Update Update Date/Time: 01/27/24 07:39 History and Physical has been reviewed, including an updated exam of the patient. There are NO changes in the patient's condition. Risks, benefits, and alternatives have been discussed and questions answered. Patient agrees to proceed with procedure.
[2024-01-27 09:19] LABS: Glucose Point of Care 119 mg/dl (65-105)
[2024-01-27] MEDS: ACETAMINOPHEN 500 MG TABLET 1000 MG PO (10:05)
[2024-01-27] MEDS: LACTATED RINGERS 1,000 ML 30 ML IV CONT (10:10)
--- NOTE | 2024-01-27 10:37 | WPDANESEPPF ---
Anes - Initial Pre Proc Eval Procedure: Operation Date: 01/27/24 11:30 Proposed Procedures p Laparoscopic Cholecystectomy - Karime Loja MD Date/Time: 01/27/24 10:37 Surgeon: Karime Loja MD Pre Op Diagnosis: chronic cholecystitis Patient Data Age: 78 Gender: F Height: 1.65 m Weight: 90.2 kg Last Vital Signs Temp 96.8 F L 01/27/24 10:16 Pulse 67 01/27/24 10:16 Resp 16 01/27/24 10:16 BP 147/57 H 01/27/24 10:16 Pulse Ox 100 01/27/24 10:16 O2 Del Method Room Air 01/27/24 10:16 Allergies Allergy/AdvReac Type Severity Reaction Status Date / Time No Known Allergies Allergy Verified 01/27/24 09:27 Home Medications Medication Instructions Recorded Confirmed Type aspirin 81 mg tablet,delayed 81 mg PO DAILY 05/01/21 01/21/24 History release (Adult Aspirin Regimen) ferrous sulfate 325 mg (65 mg 325 mg PO DAILY #90 tabs 05/01/21 01/21/24 Rx iron) tablet,delayed release blood-glucose meter (ReliOn Prime #1 ea 09/27/22 01/07/24 Rx Meter) inhalational spacing device #1 ea 01/26/23 01/07/24 Rx (Aerochamber Plus Z Stat spacer) bismuth subsalicylate 262 mg/15 mL 524 mg PO QID 06/04/23 01/21/24 History oral suspension (Pepto-Bismol) furosemide 20 mg tablet See Rx Instructions .Route 06/10/23 01/21/24 Rx .COMPLEX #90 tabs metformin 1,000 mg tablet See Rx Instructions .Route 06/10/23 01/21/24 Rx .COMPLEX #180 tabs atorvastatin 80 mg tablet See Rx Instructions .Route 07/19/23 01/21/24 Rx .COMPLEX #90 tabs levothyroxine 125 mcg tablet 125 mcg PO DAILY #90 tabs 07/19/23 01/21/24 Rx losartan 100 mg tablet 100 mg PO DAILY #90 tabs 07/19/23 01/21/24 Rx omeprazole 40 mg capsule,delayed See Rx Instructions .Route 09/18/23 01/21/24 Rx release .COMPLEX #90 caps donepezil 10 mg tablet (Aricept) 10 mg PO QPM #90 tabs 11/04/23 01/21/24 Rx dicyclomine 10 mg capsule See Rx Instructions .Route 11/28/23 01/21/24 Rx .COMPLEX #90 caps metoclopramide HCl 5 mg tablet 5 mg PO BID PRN nausea and 12/16/23 01/21/24 Rx (Reglan) vomiting #10 tabs ondansetron HCl 4 mg tablet 4 mg PO Q8H #20 tabs 12/16/23 01/21/24 Rx gabapentin 100 mg capsule See Rx Instructions .Route 01/01/24 01/21/24 Rx .COMPLEX #90 caps insulin NPH-regular 70-30 U-100 25 unit (0.25 mL) subcut BID #45 mL 01/24/24 Rx insulin 100 unit/mL subcutaneous pen (Novolin 70-30 FlexPen U-100 Insulin) pen needle, diabetic 31 gauge x #100 ea 01/24/24 Rx / (Pen Needle) Laboratory Tests 01/27/24 09:14 POC Capillary Glucose 119 H mg/dl (65-105) Patient hx anesthesia problems: none Family hx anesthesia problems: none Results Review: All pre-operative results and documents have been reviewed as part of the pre-operative evaluation. FOR[facility]LY [facility] Past Medical History Medical History Alzheimer's dementia Bilateral lower abdominal cramping Diabetic peripheral neuropathy Fall Fatty liver GERD (gastroesophageal reflux disease) Hemiparesis History of stroke with current residual effects HLD (hyperlipidemia) HTN (hypertension), benign Hypothyroidism Iron deficiency anemia Left wrist pain Long-term insulin use Loose stools MDD (major depressive disorder) Nausea vomiting and diarrhea Obesity Seizure disorder Type 2 diabetes mellitus without complications Surgical History Surgical History History of tubal ligation Family History Family History Father Family history of malignant neoplasm, Onset Age: 74 Patient's father is Family history of arthritis Family history of congestive heart failure Family history of heart disease in male family member before age 55 Family history of coronary artery disease Mother Family history of malignant neoplasm of brain, Onset Age: 65 Patient's mother
[2024-01-27] MEDS: KETOROLAC 15 MG/ML VIAL (*BKC) IV PUSH (11:15)
[2024-01-27] MEDS: ceFAZolin 2 GM/D5W 50 ML 2 GM/50 ML BAG IVPB (12:15)
[2024-01-27] MEDS: BUPIVACAINE/EPINEPHRINE 0.5% 10 ML VIAL 30 ML INFILTRATE (12:32)
--- NOTE | 2024-01-27 12:59 | W.PM.PROC2 ---
Procedure Note - Detailed Date of Procedure 01/27/24 Pre-op Diagnosis chronic cholecystitis, cholelithiasis Post-op Diagnosis Same Procedure Performed Laparoscopic cholecystectomy Surgeon Karime Loja MD Anesthesia General Indications 78-year-old female presented to the office complaining of postprandial right upper quadrant abdominal pain associated with nausea and vomiting. Workup including imaging significant for cholecystitis, cholelithiasis. Findings Cholecystitis with cholelithiasis Description of Procedure The patient was taken to the operating room placed in the supine position. After adequate induction of general anesthesia, the patient was prepped and draped in normal sterile fashion. A time-out was then performed to verify the patient's identity as well as the procedure being performed. I then made a 5 mm incision in the infraumbilical region. Through this, a Veress needle was placed into the peritoneal cavity and CO2 gas was then insufflated. After adequate pneumoperitoneum was achieved, the Veress needle was removed and a 5 mm optiview trocar was placed through this incision under direct visualization. I then placed the laparoscope through this trocar site and under direct visualization placed a further 12 mm subxiphoid port as well as 2 additional 5 mm ports in the right upper abdomen. The gallbladder was then identified and was noted to be moderately inflamed, distended, and full of gallstones. I was able to place a grasper at the dome of the gallbladder and this was retracted anterior and cephalad up over the liver. A 2nd retractor was then placed at the infundibulum and retracted laterally, this allowed visualization of the triangle of Calot. I then was able to visualize the cystic duct in its entirety from its proximal insertion into the gallbladder, to its distal junction with the common hepatic/common bile duct junction. At this point, I carefully skeletonized the proximal cystic duct with the [place] dissector. I then clipped and transected the proximal cystic duct. Next I visualized the cystic artery. Again the artery was skeletonized, clipped, and transected. I then used the Bovie cautery to take down the peritoneal attachments of the gallbladder off the liver bed. This was somewhat difficult given the amount of inflammation in the posterior space. Once the gallbladder specimen was completely detached, an endo-pouch was placed through the 12 mm port site. I then placed the gallbladder specimen into the Endo pouch and removed the endo-pouch from the 12 mm port site. The specimen will now be sent to pathology for further review. I then copiously irrigated the right upper quadrant. Some mild oozing was noted in the liver bed and this was controlled with the bovie cautery. Hemostasis was noted in the liver bed, the clips were noted to be in good position on both the cystic duct stump and the cystic artery stump. No other pathology was noted in the right upper quadrant. I then moved the laparoscope to the subxiphoid port. No iatrogenic injury or other pathology was noted in the lower abdomen. I then closed the 12 mm trocar site under direct visualization using the Talat cone and 0 Vicryl suture. At this point, the abdomen was desufflated and all ports removed. All port sites were then closed with 4.O Monocryl subcuticular sutures. Dermabond was placed on each incision. The patient tolerated the procedure well, was extubated in the operating room postoperative and will be transferred to the recovery room in stable condition Estimated Blood Loss 10 Drains No Packing No Pathology Yes Complications No immediate complications Condition Stable Disposition PACU [facility] Billing Surgery - Charge Forward: Surgery Billing
[2024-01-27 13:28] LABS: Glucose Point of Care 138 mg/dl (65-105)
[2024-01-27] MEDS: ONDANSETRON INJ 4 MG/2 ML VIAL IV PUSH (14:23)
[2024-01-27] MEDS: oxyCODONE HCL (*CRX) 5 MG TAB IR PO (14:40)
[2024-01-27] MEDS: diphenhydrAMINE HCl INJ 50 MG/ML VIAL 12.5 MG IV PUSH (15:11)
--- NOTE | 2024-01-27 15:30 | SUR.PREOP ---
1000- Per Daughter (POA) pt is a full code for surgery today. Pt also agreed in pre op area. No advance directive or legal paperwork brought with pt day of surgery.
== END 2024-01-27 16:20 | disposition home or self-care (01) ==
PROVIDERS: PCP Family Medicine; Visit Provider Surgery
PROC: 0FT44ZZ Resection of Gallbladder, Percutaneous Endoscopic Approach (ICD-10-PCS; CPT 47562; principal; 2024-01-27 11:30)
DX: K80.10 Calculus of gallbladder with chronic cholecystitis without obstruction (principal); I10 Essential (primary) hypertension; E11.42 Type 2 diabetes mellitus with diabetic polyneuropathy; K21.9 Gastro-esophageal reflux disease without esophagitis; E03.9 Hypothyroidism, unspecified; D50.9 Iron deficiency anemia, unspecified; F32.9 Major depressive disorder, single episode, unspecified; F03.90 Unspecified dementia, unspecified severity, without behavioral disturbance, psychotic disturbance, mood disturbance, and anxiety; Z79.4 Long term (current) use of insulin; Z79.82 Long term (current) use of aspirin; Z79.51 Long term (current) use of inhaled steroids; Z79.84 Long term (current) use of oral hypoglycemic drugs; Z98.51 Tubal ligation status; Z86.73 Personal history of transient ischemic attack (TIA), and cerebral infarction without residual deficits; Z80.8 Family history of malignant neoplasm of other organs or systems; Z80.1 Family history of malignant neoplasm of trachea, bronchus and lung; Z80.3 Family history of malignant neoplasm of breast; Z82.49 Family history of ischemic heart disease and other diseases of the circulatory system
CPT/HCPCS: 47562; 82948; 88304; A9270; J0690; J1200; J1885; J2405; J2704; J3010; J7030; J7120

== ENCOUNTER 2025-02-04 09:15 | Outpatient (RCR) | payer MEDICARE, SELFPAY | END 2025-03-15 12:13 | disposition home or self-care (01) | LOC: ANHDMC 09:15 | PROVIDERS: PCP Family Medicine; Visit Provider Nurse Practitioner Family | DX: E11.9 Type 2 diabetes mellitus without complications (principal); E78.5 Hyperlipidemia, unspecified; E03.9 Hypothyroidism, unspecified; E55.9 Vitamin D deficiency, unspecified; Z71.89 Other specified counseling | CPT/HCPCS: G0108 ==

== ENCOUNTER 2025-04-09 13:00 | Outpatient (CLI) | payer MEDICARE, SELFPAY ==
--- OUTSIDE RECORDS SUMMARY | 2025-04-09 13:05 | XMS_ITS | Clinical Summary ---
Author Organization [facility] Address [address] [place] [phone] Phone Care Team Providers Care Professional Security Officer Name Role Phone Unavailable Primary Care Provider Unavailabl e Medications metFORMIN (GLUCOPHAGE) 850 MG tablet 1TID 0 01/12/2016 Active levothyroxine (SYNTHROID, LEVOTHROID) 125 MCG tablet 1 qod 0 01/12/2016 Active clopidogrel (PLAVIX) 75 MG tablet 0 01/12/2016 Active lisinopril (PRINIVIL,ZESTRI L) 10 MG tablet 1 daily 0 01/12/2016 Act rory zolpidem (AMBIEN) 5 MG tablet 1 qhs prn 0 01/12/2016 Active venlafaxine XR (EFFEXOR-XR) 150 MG 24 hr capsule 1 daily 0 01/12/2016 Ac tive glimepiride (AMARYL) 4 MG tablet 1 daily 0 01/12/2016 Active aspirin (ASPIR-LOW) 81 MG EC tablet 1 daily 0 01/12/2016 Active trifluoperazine (STELAZINE) 5 MG tablet 1 tid 0 01/12/2016 Active benztropine (COGENTIN) 1 MG tablet 1 bid 0 01/12/2016 Active omeprazole (PriLOSEC) [address] capsule 1 daily 0 01/12/2016 Active pravastatin (PRAVACHOL) 40 MG tablet 1 nightly 0 01/12/2016 Active Social History Tobacco Use Types Packs/Day Years Used Date Smoking Tobacco: Never Assessed Comments Unknown Sex and Gender Information Value Date Recorded Sex Assigned at Not on file Legal Sex Female 7:16 AM MST Gender Identity Not on file Sexual Orientation Not on file Plan of Treatment Not on file
--- OUTSIDE RECORDS SUMMARY | 2025-04-09 13:05 | XMS_ITS | Clinical Summary ---
Author Organization [facility] Address [address] [place] [address] Care Team Providers Care Banana Carrier Name Role Phone Gregory Banda MD Primary Care Provider Allergies No known active allergies Medications atorvastatin (LIPITOR) 80 mg tablet Take 1 tablet (80 mg total) by mouth nightly Active omeprazole (PriLOSEC) 40 mg capsule Take 1 capsule (40 mg total) by mouth daily Active albuterol HFA (PROVENTIL HFA,VENTOLIN HFA,PROAIR HFA) 90 mcg/actuation inhaler Inhale 2 puffs every 4 (four) hours as needed for shortness of breath 6.7 g 06/20/20 24 Active guaiFENesin-dextro methorphan ER (MUCINEX DM) 600-30 mg tablet extended release 12 hr Take 1 tablet by mouth every 12 (twelve) hours 28 tablet 06/20/20 24 Active aspirin 81 mg enteric coated tablet Take 1 tablet (81 mg total) by mouth daily Active levothyroxine (SYNTHROID) 137 mcg tablet Take 1 tablet (137 mcg total) by mouth claims 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 representative before breakfast Active ferrous sulfate 325 mg (65 mg of elemental iron) tablet Take 1 tablet (325 mg total) by mouth daily with breakfast Active dicyclomine (BENTYL) 10 mg capsule Take 1 capsule (10 mg total) by mouth 3 (three) times a day as needed 07/03/20 24 Active ondansetron ODT (ZOFRAN-ODT) 4 mg disintegrating tabletIndications: Nausea and vomiting Take 1 tablet (4 mg total) by mouth every 8 (eight) hours as needed for nausea or vomiting 20 tablet 2 07/14/19 25 Active memantine (NAMENDA) 10 mg tabletIndications: Moderate to Severe Alzheimer's Type Dementia Take 1 tablet (10 mg total) by mouth 2 (two) times a day Active diphenoxylate-atro pine (LOMOTIL) 2.5-0.025 mg per tabletIndications: diarrhea Take 1 tablet by mouth 4 (four) times a day as needed for diarrhea 14 tablet 10/01/19 25 Active metoclopramide (REGLAN) 10 mg tablet Take 1 tablet (10 mg total) by mouth 3 (three) times a day as needed (nausea/vomitin g.) 14 tablet 10/01/19 25 Active ramelteon (ROZEREM) 8 mg tabletIndications: Sleep-Onset Insomnia Take 1 tablet (8 mg total) by mouth nightly as needed for sleep 14 tablet 10/01/19 25 Active Additional Information Patient not taking.Reported on 02/24/2025 cyanocobalamin (Vitamin B-12) 2,000 mcg tabletIndications: Prevention of Vitamin B12 Deficiency Take 1 tablet (2,000 mcg total) by mouth daily 30 tablet 1 10/06/19 25 Active NovoLIN 70/30 100 unit/mL pen for injection Inject 20 Units under the skin 2 (two) times a day 09/29/19 25 Active traZODone (DESYREL) 50 mg tablet Take 1 tablet (50 mg total) by mouth nightly as needed for sleep 10/07/19 25 Active insulin degludec (TRESIBA) 200 unit/mL (3 mL) pen for injection Inject 0.17 mL (34 Units total) under the skin 01/13/20 25 Active Active Problems Problem Noted Date Diagnosed Date Acute hyponatremia 10/14/2024 Altered mental status, unspe cified altered mental status type 10/03/2024 Intra-abdominal infection 09/27/2024 Assessment & Plan (09/27/2024 3:53 AM CDT): Intra-abdominal infection versus gastroenteritis etiology Differential diagnosis includes colitis IV fluid IV Pepcid Rocephin and Flagyl Pending follow-up of blood culture x2 sets DWAYNE (acute kidney injury) 09/26/2024 Assessment & Plan (09/27/2024 3:52 AM CDT): Possible association with intra-abdominal infection/gastroenteritis etiology IV fluid Elevated BUN and creatinine levels above baseline Urinalysis inconclusive Pending reassessment of BUN and creatinine levels with a.m. labs Hyponatremia 07/14/2024 Gastroesophageal reflux disease without esophagi tis 07/14/2024 Generalized weakness 07/14/2024 Nonrheumatic aortic valve stenosis 07/14/2024 Nausea 07/10/2024 Dehydration 07/09/2024 Lactic acid increased 06/21/2024 Nausea and vomiting 06/21/2024 Hypophosphatemia 06/21/2024 Hypomagnesemia 06/21/2024 Diarrhea 06/21/2024 History of dementia 06/21/2024 Obesity (BMI 30.0-34.9) 06/21/2024 Hypertensive urgency 06/21/2024 Normocytic normochromic anemia 06/21/2024 Hyperlactatemia 06/21/2024 Lower abdominal pain 06/21/2024 Acute hypoxic respiratory failure 06/21/2024 SOB (shortness of breath) 06/21/2024 COVID-19 06/20/2024 Slurred speech 04/20/2021 Bipolar disorder 04/20/2021 Dementia 04/20/2021 Diabetes mellitus 07/03/2019 Assessment & Plan (09/27/2024 3:56 AM CDT): Hold home regimen Lantus insulin protocol Fingersticks q.a.c. and HS with sliding scale coverage A1c level 7.0 (06/21/2024) Thyroid disease 07/03/2019 Essential (primary) hypertension 07/03/2019 Assessment & Plan (09/27/2024 3:57 AM CDT): Low blood pressures noted upon arrival which have improved with IV fluid therapy Concurrent presence of elevated BUN and creatinine levels noted versus baseline, will hold home losartan regimen and pending follow-up of resolution of DWAYNE state and blood pressure levels stabilization prior to restarting medication Hypercholesteremia 07/03/2019 Severe depression (CMS/HCC) 07/03/2019 Schizoaffective disorder 08/23/2018 UGI bleed Encounters Date Type Department Care Team Description 03/30/2025 2:45 PM CDT - 03/30/2025 11:59 PM CDT Hospital Encounter [facility] Imaging and Radiology [address] [place] [id number] Severe aortic stenosis; Pre-op exam Discharge Disposition: Discharge to home or self care 03/30/2025 1:27 PM CDT - 03/30/2025 11:59 PM CDT Hospital Encounter [facility] Vascular Lab [address] [place] [id number] H/O: CVA (cerebrovascular accident); Pre-op exam Discharge Disposition: Discharge to home or self care 03/22/2025 10:00 AM CDT - 03/22/2025 11:30 AM CDT Surgery [facility] Cardiac Catheterization Lab [address] [place] [id number] Keith Montgomery MD LEFT HEART CATHETERIZATION WITH CORONARY ANGIOGRAPHY AND WITH OR WITHOUT LEFT VENTRICULOGRAM [id number] 03/22/2025 7:51 AM CDT - 03/22/2025 1:43 PM CDT Hospital Encounter [facility] Cardiac Catheterization Lab [address] [place] [id number] Keith Montgomery MD Nonrheumatic aortic valve stenosis Discharge Disposition: Discharge to home or self care 03/17/2025 Orders Only [facility] Cardiac Catheterization Lab [address] [place] [id number] Keith Montgomery MD H/O: CVA (cerebrovascular accident) (Primary Dx); Severe aortic stenosis; Pre-op exam 02/24/2025 8:15 AM CDT Office Visit [facility] Cardiology [address] [place] [address] Keith Montgomery MD Nonrheumatic aortic valve stenosis (Primary Dx); Type 2 diabetes mellitus with other specified complication, with long-term current use of insulin; History of CVA (cerebrovascular accident); Debility 02/24/2025 Telephone [facility] Card[facility] [address] [place] [address] Keith Montgomery MD 02/23/2025 Cardiology Conference [facility] Non-invasive Cardiac Diagnostic Testing [id number] [place] [address] Luis M Lee RN 02/12/2025 Results Follow-Up [facility] Medical [facility] Cardiology [address] [place] [id number] Valerio Johnson MD Transthoracic Echo (TTE) Complete W Doppler/CF 02/10/2025 8:15 AM CDT Ancillary Procedure [facility] Cardiology [address] [place] [address] Nonrheumatic aortic valve stenosis from Last 3 Months Surgical History Surgery Date Site/Laterality Comments CHOLECYSTECTOMY TUBAL LIGATION CARDIAC CATHETERIZATION 03/22/2025 N/A Procedure: LEFT HEART CATHETERIZATION WITH CORONARY ANGIOGRAPHY AND WITH OR WITHOUT LEFT VENTRICULOGRAM [id number]; Surgeon: Keith Montgomery MD; 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; Service: Cardiovascular; Laterality: N/A; CARDIAC CATHETERIZATION 03/22/2025 N/A Procedure: ULTRASOUND GUIDANCE FOR VASCULAR ACCESS S&I [id number]; Surgeon: Keith Montgomery MD; 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; Service: Cardiovascular; Laterality: N/A; Medical History Medical History Date Comments Diabetes mellitus Thyroid disease Dementia (HCC) Bipolar disorder Stroke (HCC) Nonrheumatic aortic (valve) stenosis Heart murmur Arthritis Family History Medical History Relation Name Comments Heart attack Brother Melanoma Father Kidney cancer Mother Relation Name Status Comments Brother Father Mother Social History Tobacco Use Types Packs/Day Years Used Date Smoking Tobacco: Never Smokeless Tobacco: Never Alcohol Use Standard Drinks/Week Comments Yes 0 (1 standard drink = 0.6 oz pur e alcohol) [facility] Utilities Answer Date Recorded In the past 12 months has [email or web address], [email or web address], oil, or water [employer] threatened to shut off services in your home? No 09/28/2024 Social Connection and Isolation Panel Answer Date Recorded In a typical week, how many times do you talk on the phone with family, friends, or neighbors? More than three times a week 09/28/2024 How often do you get togethe r with friends or relatives? More than three times a week 09/28/2024 How often do you attend [facility] or latter day services? Never 09/28/2024 Do you belong to any clubs o r organizations such as baptist groups, unions, fraternal or athletic groups, or school groups? No 09/28/2024 How often do you attend meet ings of the clubs or organizations you belong to? Never 09/28/2024 Are you , , di vorced, , never , or living with a partner? 09/28/2024 Overall Financial Resource Strain (CARDIA) Answe r Date Recorded How hard is it for you to pa y for the very basics like food, housing, medical care, and heating? Not hard at all 09/28/2024 PHQ-2 Answer Date Recorded PHQ-2 Total Score 1 10/15/2024 Hunger Vital Sign Answer Date Recorded Within the past 12 months, y ou worried that your food would run out before you got the money to buy more. Never true 09/29/19 25 Within the past 12 months, t he food you bought just didn't last and you didn't have money to get more. Never true 09/28/2024 PRAPARE - Transportation Answer Date Re corded In the past 12 months, has l ack of transportation kept you from medical appointments or from getting medications? No 09/06 In the past 12 months, has l ack of transportation kept you from meetings, work, or from getting things needed for daily living? No 09/28/2024 PHQ-9 Answer Date Recorded PHQ-9 Total Score 7 10/15/2024 Housing Stability Vital Sign Answer Prince e Recorded In the last 12 months, was t here a time when you were not able to pay the mortgage or rent on time? No 09/28/2024 In the past 12 months, how m any times have you moved where you were living? 0 09/28/2024 At any time in the past 12 m [place], were you homeless or living in a long-term (including now)? No 09/28/2024 AUDIT-C Answer Date Recorded Q1: How often do you have a drink containing alc ohol? Monthly or less 03/18/2025 Q2: How many drinks containi ng alcohol do you have on a typical day when you are drinking? 1 or 2 03/18/2025 Q3: How often do you have si x or more drinks on one occasion? Never 03/18/2025 Personal Safety Answer Date Recorded Have you ever been in or are you currently in a harmful physical or emotional relationship or is someone making you feel afraid or unsafe? 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 Gender Identity Not on file Sexual Orientation Not on file Obstetrics History Last Filed Vital Signs Vital Sign Reading Time Taken Comments Blood Pressure 114/57 03/22/2025 12:50 PM CDT Pulse 72 03/22/2025 12:50 PM CDT Temperature 36.5 C (97.7 F) 03/22/2025 8:15 AM CDT Respiratory Rate 18 03/22/2025 12:20 PM CDT Oxygen Saturation 95% 03/22/2025 12:50 PM CDT Inhaled Oxygen Concentration - - Weight 91.9 kg (202 lb 8 oz) 03/22/2025 8:15 AM CDT Height 162.6 cm (5' 4) 03/22/2025 8:15 AM CDT Body Mass Index 34.76 03/22/2025 8:15 AM CDT Plan of Treatment Upcoming Encounters Date Type Department Care Team (Late st Contact Info) Description 04/13/2025 Documentation Cardiothoracic Surgery [place], [place] Health Maintenance Due Date Last Done Comments Albumin Creatinine Ratio, Urine 1945 Hepatitis C Screening 1945 Osteoporosis Screening-Bone Density Scan 1945 Dilated Eye Exam 1945 Foot Exam 1945 DTaP/Tdap/Td Vaccine (1 - Tdap) 1958 Hepatitis B Screening 1965 Pneumococcal vaccine 65+ (1 of 2 - PCV) 1966 Zoster Vaccine (1 of 2) 1997 Well Visit 65+ 02/15/2012 Influenza Vaccine (#1) 2025 08/29/2013 Hemoglobin A1C 04/05/2025 10/03/2024, 06/07, 11/21/2020, Additional history exists Lipid Panel 06/21/2025 06/21/2024, 11/06, 06/17/2019, Additional history exists Depression Screening 10/13/2025 10/13/2024, 10/13/2024, 09/26/2024, Additional history exists eGFR 03/19/2026 03/19/2025, 04/1 , 10/14/2024, Additional history exists Fall Risk Assessment 03/22/2026 03/22/2025 Colon Cancer Screening-FIT Discontinued 09/27/2018 Colon Cancer Screening-FOBT Discontinued 09/27/2018 Colorectal Cancer Screening Discontinued Colon Cancer Screening-CT Colonography Discontinued Colon Cancer Screening-Colonoscopy Discontinued Colon Cancer Screening-DNA Stool Discontinued Colon Cancer Screening-Sigmoidoscopy Discontinued Procedures Procedure Name Priority Date/Time Associated Diagnosis Comments CT TAVR Schedule Routine, Read Routine (OP Routine) 03/30/2025 3:06 PM CDT Severe aortic stenosis Pre-op exam US CAROTIDS DUPLEX BILATERAL Schedule Routine, Read Routine (OP Routine) 03/30/2025 2:56 PM CDT H/O: CVA (cerebrovascular accident) Pre-op exam POCT GLUCOSE DEVICE Routine 03/22/2025 1 0:54 AM CDT VASCULAR ACCESS US GUIDANCE Routine 03/22/2025 10:36 AM CDT Nonrheumatic aortic valve stenosis LEFT HEART CATHETERIZATION WITH CORONARY ANGIOGRAPHY AND WITH AND WITHOUT LEFT VENTRICULOGRAM Routine 03/22/2025 10:36 AM CDT Nonrheumatic aortic valve stenosis ARTERIOGRAM AORTA ILIAC - FEMORAL 03/22/2025 9:56 AM CDT Nonrheumatic aortic valve stenosis MODERATE SEDATION 03/22/2025 9:5 6 AM CDT Nonrheumatic aortic valve stenosis POCT GLUCOSE DEVICE Routine 03/22/2025 8 :02 AM CDT COMPREHENSIVE METABOLIC PANEL Routine 03/19/2025 8:49 AM CDT Nonrheumatic aortic valve stenosis Pre-procedure lab exam CBC WITH AUTO DIFFERENTIAL Routine 03/19/2025 8:49 AM CDT Nonrheumatic aortic valve stenosis Pre-procedure lab exam TRANSTHORACIC ECHO (TTE) COMPLETE W DOPPLER/CF WO CONTRAST Routine 02/10/2025 9:45 AM CDT Nonrheumatic aortic valve stenosis HEMOGLOBIN A1C Routine 10/03/2024 4:54 AM CDT LIPID PANEL Routine 06/21/2024 2:30 AM DRILLER PORTABLE OCCULT BLOOD, FECAL (FIT) Routine 09/27/2018 2:03 PM CDT from Last 3 Months or Most Recently Relevant to Health Maintenance Results * CT TAVR (03/30/2025 3:06 PM CDT) Anatomical Region Laterality Modality Chest N/A Computed Tomogra phy 03/31/2025 3:00 PM CDT Impressions 03/31/2025 3:28 PM CDT 1. Severe aortic valvular stenosis. 2. Aortic annulus, and abdominal aortic, common iliac, external iliac and femoral artery measurements in preparation for TAVR procedure as described above. 3. Aortic valve calcium score: Agatston 2591, Volume 2022 mm3. Dictated by: Philippe Jimenez MD The radiology attending physician has personally reviewed this study, and had reviewed and/or edited this written report and agrees with it. Electronically signed by: Fito Caraballo M.D. Narrative 03/31/2025 3:28 PM CDT EXAMINATION: Heart CT and CTA abdomen and pelvis with contrast. History: Severe aortic stenosis, pre-TAVR procedure. Technique: Heart CT and CT angiogram of the abdomen and pelvis performed during administration of 100 mL of Optiray 350, intravenously per TAVR Protocol. Images were transferred to an independent workstation for additional 3D post-processing. FINDINGS: Annulus and Thoracic Aortic Measurements (in systole): Aortic valve annulus: Area 401 mm2: circumference 72 mm; 25 mm maximum diameter x 20 mm minimum diameter. Sinuses of Valsalva: 30 x 32 x 29 mm Sinotubular junction: 20 mm diameter sagittal x 20 mm diameter coronal. Aortic valve calcium score: Agatston 2591, Volume 2022 mm3. Coronary sinus heights: Right coronary sinus height: 22 Left coronary sinus height: 20 Non-coronary sinus height: 24 There is no left ventricular outflow tract calcification. There is Mild mitral annular calcification. Distance to RCA ostium from aortic valve annulus: 20 mm Distance to left main ostium from annulus: 13 mm Deployment angle: 8 SAMI, 1 cranial Coronary Arteries: Anomalous coronary artery course: No Left main atherosclerosis: Moderate LAD atherosclerosis: Severe Circumflex atherosclerosis: Mild RCA atherosclerosis: Moderate Abdominal Aortic and Pelvic Arterial Smallest Diameter Measurements (made from centerline curved MPRs): Infrarenal aorta: 16 mm x 16 mm Right common iliac artery: 11 mm x 11 mm. There is Mild calcification. Left common iliac artery: 10 mm x 11 mm . There is Mild calcification. There is Moderate tortuosity of the bilateral common iliac arteries. This is more severe on the right. Right external iliac artery: 8 mm x 9 mm. There is no calcification. Left external iliac artery: 8 mm x 8 mm. There is no calcification. There is Mild tortuosity of the bilateral external iliac arteries. This is more severe on the right. Right common femoral artery: 8 mm. There is no calcification. Left common femoral artery: 7 mm. There is no calcification. There is no significant tortuosity of the bilateral femoral arteries. Other findings: Central airways are clear. There is unchanged upper lung predominant fibrotic, peripheral fibrotic changes. Calcified pulmonary nodules are noted. There is no consolidation, pleural effusion, or pneumothorax. Heart size normal. No pericardial effusion. Left-sided aortic arch with three-vessel branching configuration and mild atherosclerotic calcifications. No suspicious hepatic lesion. Gallbladder is absent. No biliary ductal dilation. Pancreas and spleen are normal. 0.2 cm left adrenal adenoma is unchanged. Kidneys enhance symmetrically. No suspicious renal lesion. No hydronephrosis. Urinary bladder is distended without wall thickening. Uterus is present. No suspicious adnexal lesion. Small hiatal hernia. No bowel wall thickening or evidence of obstruction. No intraperitoneal free fluid or gas. No abdominal or pelvic lymphadenopathy. No suspicious osseous lesion. Procedure Note Fito Caraballo MD - 03/31/2025 EXAMINATION: Heart CT and CTA abdomen and pelvis with contrast. History: Severe aortic stenosis, pre-TAVR procedure. Technique: Heart CT and CT angiogram of the abdomen and pelvis performed during administration of 100 mL of Optiray 350, intravenously per TAVR Protocol. Images were transferred to an independent workstation for additional 3D post-processing. FINDINGS: Annulus and Thoracic Aortic Measurements (in systole): Aortic valve annulus: Area 401 mm2: circumference 72 mm; 25 mm maximum diameter x 20 mm minimum diameter. Sinuses of Valsalva: 30 x 32 x 29 mm Sinotubular junction: 20 mm diameter sagittal x 20 mm diameter coronal. Aortic valve calcium score: Agatston 2591, Volume 2022 mm3. Coronary sinus heights: Right coronary sinus height: 22 Left coronary sinus height: 20 Non-coronary sinus height: 24 There is no left ventricular outflow tract calcification. There is Mild mitral annular calcification. Distance to RCA ostium from aortic valve annulus: 20 mm Distance to left main ostium from annulus: 13 mm Deployment angle: 8 SAMI, 1 cranial Coronary Arteries: Anomalous coronary artery course: No Left main atherosclerosis: Moderate LAD atherosclerosis: Severe Circumflex atherosclerosis: Mild RCA atherosclerosis: Moderate Abdominal Aortic and Pelvic Arterial Smallest Diameter Measurements (made from centerline curved MPRs): Infrarenal aorta: 16 mm x 16 mm Right common iliac artery: 11 mm x 11 mm. There is Mild calcification. Left common iliac artery: 10 mm x 11 mm . There is Mild calcification. There is Moderate tortuosity of the bilateral common iliac arteries. This is more severe on the right. Right external iliac artery: 8 mm x 9 mm. There is no calcification. Left external iliac artery: 8 mm x 8 mm. There is no calcification. There is Mild tortuosity of the bilateral external iliac arteries. This is more severe on the right. Right common femoral artery: 8 mm. There is no calcification. Left common femoral artery: 7 mm. There is no calcification. There is no significant tortuosity of the bilateral femoral arteries. Other findings: Central airways are clear. There is unchanged upper lung predominant fibrotic, peripheral fibrotic changes. Calcified pulmonary nodules are noted. There is no consolidation, pleural effusion, or pneumothorax. Heart size normal. No pericardial effusion. Left-sided aortic arch with three-vessel branching configuration and mild atherosclerotic calcifications. No suspicious hepatic lesion. Gallbladder is absent. No biliary ductal dilation. Pancreas and spleen are normal. 0.2 cm left adrenal adenoma is unchanged. Kidneys enhance symmetrically. No suspicious renal lesion. No hydronephrosis. Urinary bladder is distended without wall thickening. Uterus is present. No suspicious adnexal lesion. Small hiatal hernia. No bowel wall thickening or evidence of obstruction. No intraperitoneal free fluid or gas. No abdominal or pelvic lymphadenopathy. No suspicious osseous lesion. IMPRESSION: 1. Severe aortic valvular stenosis. 2. Aortic annulus, and abdominal aortic, common iliac, external iliac and femoral artery measurements in preparation for TAVR procedure as described above. 3. Aortic valve calcium score: Agatston 2591, Volume 2022 mm3. Dictated by: Philippe Jimenez MD The radiology attending physician has personally reviewed this study, and had reviewed and/or edited this written report and agrees with it. Electronically signed by: Fito Caraballo M.D. us Keith Montgomery MD IMG CT PROCEDURES Final Result * US Carotids Bilateral (03/30/2025 2:56 PM CDT) Anatomical Region Laterality Modality Vascular Bilateral Ultrasound 03/30/2025 4:52 PM CDT Impressions 03/30/2025 4:52 PM CDT There is left than 50% stenosis noted in the right and the left internal carotid arteries. Electronically signed by: Narayan Jones M.D. Narrative 03/30/2025 4:52 PM CDT EXAMINATION: US CAROTIDS DUPLEX BILATERAL HISTORY: The patient is a 80-year-old female who presents with a stroke. TECHNIQUE: Bilateral carotid artery duplex ultrasound exam was performed with minor scale imaging, color Doppler imaging and spectral waveform analysis. Nascet criteria was utilized. The study was technically difficult because the patient was coughing throughout the study. FINDINGS: Right side: Plaque morphology: There is irregular, heterogenous plaque noted in the carotid bulb and proximal ICA with flecks of calcification within it. Peak systolic velocity in the right CCA is 56 cm/s, in the distal ICA is 68/20 cm/s and the ECA is 36 cm/s with an ICA/CCA ratio of 1.21. Normal antegrade flow noted in the right vertebral artery. Left side: Plaque morphology: There is irregular, heterogenous plaque noted in the carotid bulb and proximal ICA with flecks of calcification within it. Peak systolic velocity in the left CCA is 52 cm/s, in the mid ICA 65/25 cm/s and the ECA is 60 cm/s with an ICA/CCA ratio of 1.25. Normal antegrade flow noted in the left vertebral artery. Procedure Note Narayan Jones MD - 03/30/2025 EXAMINATION: US CAROTIDS DUPLEX BILATERAL HISTORY: The patient is a 80-year-old female who presents with a stroke. TECHNIQUE: Bilateral carotid artery duplex ultrasound exam was performed with minor scale imaging, color Doppler imaging and spectral waveform analysis. Nascet criteria was utilized. The study was technically difficult because the patient was coughing throughout the study. FINDINGS: Right side: Plaque morphology: There is irregular, heterogenous plaque noted in the carotid bulb and proximal ICA with flecks of calcification within it. Peak systolic velocity in the right CCA is 56 cm/s, in the distal ICA is 68/20 cm/s and the ECA is 36 cm/s with an ICA/CCA ratio of 1.21. Normal antegrade flow noted in the right vertebral artery. Left side: Plaque morphology: There is irregular, heterogenous plaque noted in the carotid bulb and proximal ICA with flecks of calcification within it. Peak systolic velocity in the left CCA is 52 cm/s, in the mid ICA 65/25 cm/s and the ECA is 60 cm/s with an ICA/CCA ratio of 1.25. Normal antegrade flow noted in the left vertebral artery. IMPRESSION: There is left than 50% stenosis noted in the right and the left internal carotid arteries. Electronically signed by: Narayan Jones M.D. Keith Montgomery MD [facility] PROCEDURES Final Result * POCT glucose (03/22/2025 10:54 AM CDT) Glucose, POC 173 70 - 199 mg/dL Blood 03/22/2025 10:5 4 AM CDT 03/22/2025 10:54 AM CDT Keith Montgomery MD LAB POCT ORDERABLES - DEVICE Fin al Result [facility] [address] Department [place] [address] * LEFT HEART CATHETERIZATION WITH CORONARY ANGIOGRAPHY AND WITH AND WITHOUT LEFT VENTRICULOGRAM, VASCULAR ACCESS US GUIDANCE (03/22/2025 10:36 AM CDT) Anatomical Region Laterality Modality X-Ray Angiograph y Addenda Addendum by Keith Montgomery MD on 03/22/2025 10:56 AM CDT CORONARY AND PERIPHERAL ANGIOGRAM REPORT DATE OF PROCEDURE: 03/22/25 INDICATION FOR PROCEDURE: Severe aortic stenosis, pre TAVR cardiac catheterization and peripheral angiogram BRIEF CLINICAL HISTORY: Isabel Roger is a 80 y.o. female with aortic stenosis, type 2 diabetes mellitus on insulin, hypothyroidism on thyroxine replacement, history of CVA, cognitive impairment, dyslipidemia. Patient with severe calcific aortic stenosis (RUFINA 0.7 cm2 from 02/11/2025 echo). Patient has limited mobility, sedentary lifestyle and generalized debility. After discussing benefits, risks and alternatives with the patient and her daughter, they were willing to proceed with pre TAVR workup including cardiac catheterization, followed by CT TAVR. Her case will be discussed by multidisciplinary heart team before consideration for AVR. Benefits and risks of the procedure were discussed with the patient in depth, and informed consent was taken prior to the procedure. Risks of the procedure include but are not limited to vascular complications (bleeding, hematoma, pseudoaneurysm, AV fistula), radial artery occlusion or thrombus, arterial spasm or dissection, hand ischemia, nerve injury, access failure requiring conversion to femoral or alternate access, infection at access site; periprocedural TX, cardiac arrhythmias, stroke, contrast induced nephropathy, and . After discussing all the benefits, risks and alternatives, patient was willing to proceed with the procedure. PROCEDURES PERFORMED: Ultrasound-guided right radial arterial access (CPT 96278) Selective left and right coronary angiogram Distal abdominal aortogram with bilateral iliac runoff Moderate sedation-CPT code 95524 MODERATE SEDATION: Midazolam 1.5 mg , Fentanyl 50 mcg, start time 1011 stop time 1036, total direct [id number] monitoring of conscious sedation 35 minutes (CPT 78962) TRAINED OBSERVER: Minor Lane RN was trained observer for moderate sedation. ACCESS SITE: Right radial artery PROCEDURE: After obtaining informed consent, patient was brought to the laboratory director and prepped and draped in the usual sterile manner. Time-out and immediate reassessment of the patient was performed. After local anesthesia with lidocaine, right radial artery access was taken with micropuncture needle under ultrasound guidance followed by insertion of a 6 Kosovan sheath. Patient received 2.5 mg of verapamil and 100 mcg of nitroglycerin through the arterial sheath and 5000 units of unfractionated heparin IV. Selective left and right coronary angiography was performed using 5 F JL3.5 and 5F JR4 catheters respectively. Orthogonal views were taken. Next, 4 F pigtail PV multi curve catheter was advanced into distal abdominal aorta, distal abdominal aortogram with bilateral iliac runoff was performed using DSA. Access site hemostasis was achieved with radial band. Patient tolerated procedure well without any immediate procedure related complications. Estimated blood loss was minimal. All specimens removed. The angiographic and other findings are given below. FINDINGS: LEFT MAIN CORONARY: Large caliber, slightly tortuous vessel, no significant focal stenosis. LEFT ANTERIOR DESCENDING ARTERY: Large caliber vessel, tortuous, tapers distally and reaches LV apex. No significant focal stenosis seen in the LAD or its diagonal branches. LEFT CIRCUMFLEX ARTERY: Medium caliber vessel, poorly defined narrowing of the ostium; mild 30-40% stenosis in the mid segment. Continues as medium caliber OM1 branch without significant focal stenosis. RIGHT CORONARY ARTERY: Medium caliber, tortuous vessel with 30-50% diffuse stenosis. Vessel gives rise to small-caliber PDA and PLV branches. Sluggish blood flow is seen in the RCA. LEFT VENTRICULOGRAM: Not performed PELVIC ANGIOGRAM: Distal abdominal aorta is a medium caliber vessel, no focal stenosis or aneurysm. Bilateral iliac and common femoral arteries are patent. HEMODYNAMIC ASSESSMENT: Opening pressure 84/53 mmHg, closing pressure 102/79 mmHg. CONCLUSIONS: CAD- A) 30-40% stenosis mid LCX; B) 30-50% diffuse stenosis RCA Patent bilateral iliac arteries PLAN/RECOMMENDATIONS: Patient will undergo additional workup including CTA chest, abdomen and pelvis; and heart team evaluation before consideration for TAVR. Voice recognition software was used to complete this document, therefore, pockets and pieces necktie operator variances may occur. Keith Montgomery MD, [facility] 03/22/25 Keith Montgomery MD CV CARDIAC CATH PROCEDURES Edite d Result - Final * (ABNORMAL) POCT glucose (03/22/2025 8:02 AM CDT) Glucose, POC 238(H) 70 - 199 mg/dL Blood 03/22/2025 8:02 AM CDT 03/22/2025 8:02 AM CDT us Keith Montgomery MD LAB POCT ORDERABLES - DEVICE Eriberto al Result [facility] [address] Department [place] [address] * CBC with auto differential (03/19/2025 8:49 AM CDT) Pathologist [facility] WBC 7.6 3.8 - 10.8 Thousand/u L [facility] RBC, POC 4.19 3.80 - 5.10 Million/uL [facility] Hgb 13.2 11.7 - 15.5 g/dL [facility] Hct 41.3 35.0 - 45.0 % [facility] MCV 98.6 80.0 - 100.0 fL [facility] MCH 31.5 27.0 - 33.0 pg [facility] MCHC 32.0 32.0 - 36.0 g/dL [facility] Comment: For adults, a slight decrease in the calculated MCHC value (in the range of 30 to 32 g/dL) is most likely not clinically significant; however, it should be interpreted with caution in correlation with other red cell parameters and the patient's clinical condition. Rdw 12.3 11.0 - 15.0 % [facility] Platelets 208 140 - 400 Thousand/u L [facility] MPV 10.3 7.5 - 12.5 fL [facility] Neutrophils, abs 3,245 1,500 - 7,800 cells/uL [facility] Lymphocytes, abs 3,580 850 - 3,900 cells/uL [facility] Monocyte abs 441 200 - 950 cells/uL [facility] Eosinophils, abs 281 15 - 500 cells/uL [facility] Basophils, abs 53 0 - 200 cells/uL [facility] Neutrophils 42.7 % [facility] Lymphocyte pct 47.1 % [facility] Monocytes 5.8 % [facility] Eosinophils 3.7 % [facility] Basophils 0.7 % [facility] Blood 03/19/2025 8:49 AM CDT 03/19/2025 8:49 AM CDT Narrative [facility] - 03/19/2025 6:18 PM CDT FASTING:YES FASTING: YES us Keith Montgomery MD LAB BLOOD ORDERABLES Final Resul t [facility] [address] [place] [address] * (ABNORMAL) Comprehensive metabolic panel (03/19/2025 8:49 AM CDT) Glucose 212(H) 65 - 99 mg/dL [facility] Comment: Fasting reference interval For someone without known diabetes, a glucose value >125 mg/dL indicates that they may have diabetes and this should be confirmed with a follow-up test. BUN 11 7 - 25 mg/dL [facility] Creatinine 0.82 0.60 - 1.00 mg/dL [facility] eGFR 73 > OR = 60 mL/min/1.7 3m2 [facility] BUN/creat ratio SEE NOTE: 6 - 22 (calc) [facility] Comment: Not Reported: BUN and Creatinine are within reference range. Sodium 132(L) 135 - 146 mmol/L [facility] Potassium, pl 4.1 3.5 - 5.3 mmol/L [facility] Chloride 94(L) 98 - 110 mmol/L [facility] CO2 28 20 - 32 mmol/L [facility] Calcium 9.8 8.6 - 10.4 mg/dL [facility] Protein, sr 7.7 6.1 - 8.1 g/dL [facility] Albumin 4.2 3.6 - 5.1 g/dL [facility] GLOBULIN 3.5 1.9 - 3.7 g/dL (calc) [facility] Alb/glob ratio 1.2 1.0 - 2.5 (calc) [facility] Bilirubin, total 0.5 0.2 - 1.2 mg/dL [facility] Alk phos 92 37 - 153 U/L [facility] AST 23 10 - 35 U/L [facility] ALT (SGPT) 22 6 - 29 U/L [facility] Blood 03/19/2025 8:49 AM CDT 03/19/2025 8:49 AM CDT Narrative [facility] - 03/19/2025 6:18 PM CDT FASTING:YES FASTING: YES us Keith Montgomery MD LAB BLOOD ORDERABLES Final Resul t [facility] [address] [place] [address] * TRANSTHORACIC ECHO (TTE) COMPLETE W DOPPLER/CF WO CONTRAST (02/10/2025 9:45 AM CDT) EF Mod BP 79 % CONS SCIMAGE Anatomical Region Laterality Modality Ultrasound 02/10/2025 8:51 AM CDT Narrative 02/11/2025 7:[address] [facility] Cardiology [address] [facility] [address], [place] [address] [address] [facility] [address], [place] [address] P:[phone] P:[phone] Echocardiographic Report Patient Name: ISABEL ROGER J : 1945 Study Date: 02/10/2025 8:51:39 AM Gender: F [employer] As[employer]er: Teresa Ahn (Erin)(CT), [facility] Location: [place] Ref Provider: VALERIO JOHNSON Height(Cm): 163 BSA: 1.99 Weight(Kg): 87.5 Heart Rate: 69 BP: 129 / 59 Quality: Good Order Provider: VALERIO JOHNSON PROCEDURES: Echocardiographic Report: Transthoracic echocardiogram with complete 2D, M-Mode, and color Doppler examination. With Strain Analysis. INDICATIONS: I35.0 Nonrheumatic aortic (valve) stenosis. MEASUREMENTS: 2D/MM Value Range Doppler Value Range EF Mod BP 79 % [ 54 - 74 ] RUFINA Vmax 0.79 cm2 [ 2.00 - 4.00 ] LV GLS -10.36 % AV Mean PG 35 mmHg LVIDd 2D 2.85 cm [ 3.80 - 5.20 ] AV Peak David 3.77 m/s [ 1.00 - 1.70 ] LVIDs 2D 1.58 cm [ 2.20 - 3.50 ] AV Peak PG 57 mmHg LVPWd 2D 1.20 cm [ 0.60 - 0.90 ] AV VTI 70.39 cm IVSd 2D 1.20 cm [ 0.60 - 0.90 ] LVOT Diam 1.94 cm [ 1.70 - 2.10 ] AoR Diam 2D 3.09 cm [ 2.70 - 3.70 ] LVOT Peak David 1.02 m/s [ 0.70 - 1.10 ] LA Volume 33.76 ml [ 22.00 - 52.00 ] LVOT VTI 21.59 cm LA Volume Index 17 cc/m2 [ 16 - 28 ] MV E Peak David 0.59 m/s [ 0.60 - 1.30 ] RA Volume 13.88 ml MV A Peak David 0.83 m/s [ 1.00 - 1.20 ] MV Decel Time 340 msec [ 104 - 258 ] PV Peak David 0.81 m/s [ 0.40 - 0.80 ] RV S` 14.30 mmHg Lateral E` 0.05 m/s [ 0.10 - 0.15 ] Septal E` 0.03 m/s [ 0.08 - 0.15 ] E` 0.04 m/s E/E` 15 Tapse 1.91 cm [ 1.71 - 5.00 ] 2D/MM Value Range Doppler Value Range - FINDINGS: Interpretation Site: Exam was interpreted at home. Left Ventricle: Normal left ventricular size. Moderate concentric left ventricular hypertrophy. Hyperdynamic left ventricular function. No focal wall motion abnormalities. Impaired diastolic relaxation Grade I. Increased left heart filling pressures based on elevated E/E`. Ejection fraction is measured at 79 %. Global Longitudinal Strain is -10 %. Right Ventricle: Normal right ventricular size. Normal right ventricular systolic function. Left Atrium: The left atrium is normal in size. Right Atrium: The right atrium is normal in size. Atrial Septum: The atrial septum is not well visualized. Mitral Valve: Mild mitral annular calcification. No mitral valve regurgitation is seen. Aortic Valve: Severe aortic stenosis. Peak Velocity of 3.80 m/s. Mean gradient of 35.0 mmHg. Valve area of 0.7 cm2. Aortic cusps appear severely calcified. Mild aortic valve regurgitation. Tricuspid Valve: Normal appearance of the tricuspid valve. Right ventricular systolic pressure could not be estimated due to inadequate visualization of the tricuspid regurgitation jet. Pulmonic Valve: Pulmonic valve not well visualized. Pericardium: Normal pericardium with no significant pericardial effusion. Aorta: Severe aortic root calcification. IVC: The IVC is not well visualized. CONCLUSIONS: Normal left ventricular size. Moderate concentric left ventricular hypertrophy. Hyperdynamic left ventricular function. Impaired diastolic relaxation Grade I. Increased left heart filling pressures based on elevated E/E`. Ejection fraction is measured at 79 %. Global Longitudinal Strain is abnormal at -10 %. Normal right ventricular size and systolic function. Mild mitral annular calcification. No significant MR. Aortic valve is severely calcified and restricted. Severe aortic stenosis with relatively lower mean gradient. V max 3.80 m/s. Mean gradient 35 mmHg. Valve area 0.7 cm2. Mild aortic valve regurgitation. Right ventricular systolic pressure could not be estimated due to inadequate visualization of the tricuspid regurgitation jet. Aortic root calcification. Electronically Signed By: Keith Montgomery MD, [facility] 02/11/2025 7:00:32 AM CDT Procedure Note Keith Montgomery MD - 02/11/2025 [facility] Medical Group Cardiology [address] [facility] [address], [place] [address] [address] [facility] [address], [place] [address] P:[phone] P:[phone] Echocardiographic Report Patient Name: ISABEL ROGER J : 1945 Study Date: 02/10/2025 8:51:39 AM Gender: F [employer]: Teresa Bennett)(ME), [facility] Location: [facility] Provider: VALERIO JOHNSON Height(Cm): 163 BSA: 1.99 Weight(Kg): 87.5 Heart Rate: 69 BP: 129 / 59 Quality: Good Order Provider: VALERIO JOHNSON PROCEDURES: Echocardiographic Report: Transthoracic echocardiogram with complete 2D, M-Mode, and color Dopplerexamination. With Strain Analysis. INDICATIONS: I35.0 Nonrheumatic aortic (valve) stenosis. MEASUREMENTS: 2D/MM Value Range Doppler ValueRange EF Mod BP 79 % [ 54 - 74 ] RUFINA Vmax 0.79cm2 [ 2.00 - 4.00 ] LV GLS -10.36 % AV Mean PG 35mmHg LVIDd 2D 2.85 cm [ 3.80 - 5.20 ] AV Peak David 3.77m/s [ 1.00 - 1.70 ] LVIDs 2D 1.58 cm [ 2.20 - 3.50 ] AV Peak PG 57mmHg LVPWd 2D 1.20 cm [ 0.60 - 0.90 ] AV VTI 70.39cm IVSd 2D 1.20 cm [ 0.60 - 0.90 ] LVOT Diam 1.94cm [ 1.70 - 2.10 ] AoR Diam 2D 3.09 cm [ 2.70 - 3.70 ] LVOT Peak David 1.02m/s [ 0.70 - 1.10 ] LA Volume 33.76 ml [ 22.00 - 52.00 ] LVOT VTI 21.59cm LA Volume Index 17 cc/m2 [ 16 - 28 ] MV E Peak David 0.59m/s [ 0.60 - 1.30 ] RA Volume 13.88 ml MV A Peak David 0.83m/s [ 1.00 - 1.20 ] MV Decel Time 340 msec [ 104 - 258 ] PV Peak David 0.81 m/s [ 0.40 - 0.80 ] RV S` 14.30 mmHg Lateral E` 0.05 m/s [ 0.10 - 0.15 ] Septal E` 0.03 m/s [ 0.08 - 0.15 ] E` 0.04 m/s E/E` 15 Tapse 1.91 cm [ 1.71 - 5.00 ] 2D/MM Value Range Doppler ValueRange - FINDINGS: Interpretation Site: Exam was interpreted at home. Left Ventricle: Normal left ventricular size. Moderate concentric left ventricularhypertrophy. Hyperdynamic left ventricular function. No focal wall motionabnormalities. Impaired diastolic relaxation Grade I. Increased left heart filling pressures basedon elevated E/E`. Ejection fraction is measured at 79 %. Global Longitudinal Strain is-10 %. Right Ventricle: Normal right ventricular size. Normal right ventricular systolicfunction. Left Atrium: The left atrium is normal in size. Right Atrium: The right atrium is normal in size. Atrial Septum: The atrial septum is not well visualized. Mitral Valve: Mild mitral annular calcification. No mitral valve regurgitation isseen. Aortic Valve: Severe aortic stenosis. Peak Velocity of 3.80 m/s. Mean gradient of 35.0mmHg. Valve area of 0.7 cm2. Aortic cusps appear severely calcified. Mild aortic valveregurgitation. Tricuspid Valve: Normal appearance of the tricuspid valve. Right ventricular systolicpressure could not be estimated due to inadequate visualization of the tricuspidregurgitation jet. Pulmonic Valve: Pulmonic valve not well visualized. Pericardium: Normal pericardium with no significant pericardial effusion. Aorta: Severe aortic root calcification. IVC: The IVC is not well visualized. CONCLUSIONS: Normal left ventricular size. Moderate concentric left ventricularhypertrophy. Hyperdynamic left ventricular function. Impaired diastolic relaxationGrade I. Increased left heart filling pressures based on elevated E/E`. Ejection fraction ismeasured at 79 %. Global Longitudinal Strain is abnormal at -10 %. Normal right ventricular size and systolic function. Mild mitral annular calcification. No significant MR. Aortic valve is severely calcified and restricted. Severe aortic stenosiswith relatively lower mean gradient. V max 3.80 m/s. Mean gradient 35 mmHg. Valve area 0.7cm2. Mild aortic valve regurgitation. Right ventricular systolic pressure could not be estimated due toinadequate visualization of the tricuspid regurgitation jet. Aortic root calcification. Electronically Signed By: Keith Montgomery MD, [facility] 02/11/2025 7:00:32 AM CDT Valerio Johnson MD CV ECHO PROCEDURES Bernadette l Result * (ABNORMAL) Hemoglobin A1c (10/03/2024 4:54 AM CDT) Hgb A1C 8.7(H) 4.0 - 5.6 % Estimated Average Glucose 203 mg/dL [facility] Comment: The ADA recommends reporting an estimated Average Glucose (eAG) with all Hemoglobin A1c results using the equation derived from a study of 507 normal and diabetic adults. Minority populations were underrepresented and children were not included. (Diabetes Care 31:1994-0003, 2007). The eAG is not equivalent to a fasting glucose. Blood 10/03/2024 4:54 AM CDT 10/03/2024 5:13 AM CDT Jose De Jesus Mcdaniels DO LAB BLOOD ORDERABLES F inal Result M[facility]EL [address] [facility] Department of Laboratories [place], [place] [id number] * Lipid panel (06/21/2024 2:30 AM DRILLER PORTABLE) Pathologist [facility] Cholesterol 149 30 - 199 mg/dL Comment: Interpretive Data Ages < or = 19 years Acceptable: <170 mg/dL Borderline high: 170-199 mg/dL High: >or= 200 mg/dL Ages > or = 20 years Desirable: <200 mg/dL Borderline high: 200-239 mg/dL High: >or= 240 mg/dL Literature References: 1. Expert Panel on Integrated Guidelines for Cardiovascular Health and Risk Reduction in Children and Adolescents. Pediatrics 2011;128:S213 2. NCEP Expert Panel. Circulation 2004;110:227 Current Interpretive Data was last revised on 2018. Triglycerides 114 <=149 mg/dL MABEL PÉREZ Comment: Interpretive Data Ages < or = 9 years Acceptable: <75 mg/dL Borderline high: 75-99 mg/dL High: >or= 100 mg/dL Ages 10 to 20 years Acceptable: <90 mg/dL Borderline high: 90-129 mg/dL High: >or= 130 mg/dL Ages > or = 20 years Desirable: <150 mg/dL Borderline high: 150-199 mg/dL High: 200-499 mg/dL Very high: >or= 499 mg/dL Literature References: 1. Expert Panel on Integrated Guidelines for Cardiovascular Health and Risk Reduction in Children and Adolescents. Pediatrics 2011;128:S213 2. NCEP Expert Panel. Circulation 2004;110:227 Current Interpretive Data was last revised on 2018. HDL 46 >=40 mg/dL MABEL Comment: Interpretive Data Ages < or = 19 years Acceptable: >45 mg/dL Borderline low: 40-45 mg/dL Low: <40 mg/dL Ages > or = 20 years Desirable: >or= 60 mg/dL Low: <40 mg/dL Literature References: 1. Expert Panel on Integrated Guidelines for Cardiovascular Health and Risk Reduction in Children and Adolescents. Pediatrics 2011;128:S213 2. NCEP Expert Panel. Circulation 2004;110:227 Current Interpretive Data was last revised on 2018. LDL, calculated 82 <=129 mg/dL MABEL Comment: Interpretive Data Ages < or = 19 years Acceptable: <110 mg/dL Borderline high: 110-129 mg/dL High: >or= 130 mg/dL Ages > or = 20 years Optimal: <100 mg/dL Near optimal: 100-129 mg/dL Borderline high: 130-159 mg/dL High: >160 mg/dL Calculated using the Holger LDL-C estimating equation. This equation was implemented on 2024. Prior to this date LDL-C was estimated using the Friedewald equation. Literature References: 1. Expert Panel on Integrated Guidelines for Cardiovascular Health and Risk Reduction in Children and Adolescents. Pediatrics 2011;128:S213 2. NCEP Expert Panel. Circulation 2004;110:227 3. Holger Bro al. TORO Cardiol. 2019November 05;5(5):540-548. doi: [email or web address] Current Interpretive Data was last revised on 2024. Non-HDL Cholesterol 103 mg/dL MABEL PÉREZ Comment: Interpretive Data Ages < or = 19 years Acceptable: <120 mg/dL Borderline high: 120-144 mg/dL High: >145 mg/dL Ages > or = 20 years When triglycerides are >200 mg/dL, Non-HDL cholesterol is a secondary target of therapy with treatment goals that are 30 mg/dL greater than the LDL cholesterol target. Literature References: 1. Expert Panel on Integrated Guidelines for Cardiovascular Health and Risk Reduction in Children and Adolescents. Pediatrics 2011;128:S213 2. NCEP Expert Panel. Circulation 2004;110:227 Current Interpretive Data was last revised on 2018. Chol/HDL ratio 3 M[facility]EL Blood 06/21/2024 2:30 AM DRILLER PORTABLE 06/21/2024 3:20 AM DRILLER PORTABLE us Prashant Plunkett NP LAB BLOOD ORDERABLES Fin al Result Performing Organization Address City/[facility]/ZIP Co de Phone Number MABEL [address] [facility] [place] [address] * Occult blood, fecal non neoplasm screening (09/27/2018 2:03 PM CDT) [facility] Signature Stool Occult Blood POSITIVE NEGATIVE 09/27/2018 2:46 PM CDT [facility] HISTORICAL RESULTS 09/27/2018 2:03 PM CDT 09/27/2018 2:26 PM CDT Narrative [facility] HISTORICAL RESULTS - 09/27/2018 2:46 PM CDT Collected By ana us Jen hernandez MD LAB BODY FLUIDS AND STOOLS ORDERABLES Final Result [facility] HISTORICAL RESULTS from Last 3 Months or Most Recently Relevant to Health Maintenance Insurance MEDICARE [facility] MEDICARE [employer] SENIOR SUPPLE[place] [address] [facility] MEDICARE SUPPLEMENT MEDICARE [facility] MEDICARE SUPPLEMENT MEDICARE [employer] [place] [employer] SENIOR SUPPLEMENT Advance Directives For more information, please contact: [phone] Documents on File Type Date Recorded Patient Shirt Folder Expl anation ADVANCE DIRECTIVE 06/23/2024 3:28 PM Augustina r of [employer] Professional-Medical ADVANCE DIRECTIVE 07/13/2019 8:50 AM Raquel Sena r of [employer] Professional-Medical ADVANCE DIRECTIVE 10/01/2018 12:00 AM 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 * Full Code (Latest Code Status on File) Date Activated Date Inactivated Comments 10/14/2024 2:32 PM 10/15/2024 10:04 PM * Full Code Date Activated Date Inactivated Comments 10/03/2024 2:53 AM 10/04/2024 4:19 PM * Full Code Date Activated Date Inactivated Comments 09/27/2024 3:38 AM 09/30/2024 8:48 PM * Full Code Date Activated Date Inactivated Comments 07/09/2024 12:52 PM 07/14/2024 9:21 PM * Full Code Date Activated Date Inactivated Comments 06/21/2024 12:39 AM 06/25/2024 6:18 PM Care Teams Banana Carrier Relationship Specialty Start Date End Date Gregory Banda MD [address] [facility] [address] [place] [address] PCP - General 09/30/18
--- OUTSIDE RECORDS SUMMARY | 2025-04-09 13:05 | XMS_ITS | Encounter Summary ---
Author Organization [facility] Healthcare Address [address] [place] [address] Care Team Providers Care Assistant Controller Name Role Phone Gregory Banda MD Primary Care Provider Encounter Details Date Type Department Care Team (Late st Contact Info) Description 02/23/2025 Cardiology Conference [facility] Non-invasive Cardiac Diagnostic Testing [address] [place] [address] Luis M Lee, ZAY Social History Tobacco Use Types Packs/Day Years Used Date Smoking Tobacco: Never Smokeless Tobacco: Never Alcohol Use Standard Drinks/Week Comments Not Currently 0 (1 standard drink = 0.6 oz pur e alcohol) [facility] Utilities Answer Date Recorded In the past 12 months has e electric, gas, oil, or water company threatened to shut off services in your [...] week 09/28/2024 How often do you attend chur ch or worship services? Never 09/28/2024 Do you belong to any clubs o r organizations such as taoist groups, unions, fraternal or athletic groups, or school groups? No 09/28/2024 How often do you attend meet ings of the clubs or organizations you belong to? Never 09/28/2024 Are you , , di vorced, , never , or living with a partner? 09/28/2024 AUDIT-C Answer Date Recorded Frequency of Alcohol Consumption Never 07/02/2019 Average Number of Drinks Not on file 019 Frequency of Binge Drinking Not on file 06/08 Overall Financial Resource Strain (CARDIA) Answe r [...] any time in the past [address] [facility], were you homeless or living in a senior care (including now)? No 09/28/2024 Personal Safety Answer Date Recorded Have you ever been in or are you currently in a harmful physical or emotional relationship or is someone making you feel afraid or unsafe? 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
--- OUTSIDE RECORDS SUMMARY | 2025-04-09 13:05 | XMS_ITS | Encounter Summary ---
Author Organization [facility] Healthcare Address [address] [place] [address] Care Team Providers Care Supervisor Leaf Spring Repair Name Role Phone Gregory Banda MD Primary Care Provider Encounter Details Date Type Department Care Team (Late st Contact Info) Description 02/12/2025 Results Follow-Up [facility] Cardiology [address] [place] [address] [address] [place] [address] Calixto Johnson MD [address] [place] [address] [address] [place] [address] Transthoracic Echo (TTE) Complete W Doppler/CF Social History Tobacco Use Types Packs/Day Years Used Date Smoking Tobacco: Never Smokeless Tobacco: Never Alcohol Use Standard Drinks/Week Comments Not Currently 0 (1 standard drink = 0.6 oz pur e alcohol) [facility] Utilities Answer Date Recorded In the past 12 months has [employer], gas, oil, or water [facility] [employer] threatened to shut off services in your [...] week 09/28/2024 How often do you attend [facility] or uatsdin services? Never 09/28/2024 Do you belong to [...] any time in the past 12 m [facility], were you homeless or living in a half-way (including now)? No 09/28/2024 Personal Safety Answer Date Recorded Have you ever been in or are you currently in a harmful physical or emotional relationship or is someone making you feel afraid or unsafe? 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 Gender Identity Not on file Sexual Orientation Not on file documented as of this encounter Plan of Treatment Upcoming Encounters Date Type Department Care Team (Late st Contact Info) Description 04/13/2025 Documentation Cardiothoracic Surgery Marti Beach RN documented as of this encounter Visit Diagnoses Not on filedocumented in this encounter Care Teams Supervisor Leaf Spring Repair Relationship Specialty Start Date End Date Gregory Banda MD [address] [facility] [[email or web address]] [address] [place] [address] PCP - General 09/30/18 documented as of this encounter
--- OUTSIDE RECORDS SUMMARY | 2025-04-09 13:05 | XMS_ITS | Encounter Summary ---
Author Organization [facility] Address [address] [place] [address] Phone Care Team Providers Care Thermal Molder Name Role Phone Unknown, Notinfile Primary Care Provider Unavail able Gregory Banda MD Primary Care Provider Alberto Banda MD Primary Care Provider + [phone] Gregory Banda MD Primary Care Provider Alberto Banda MD Primary Care Provider + [phone] Gregory Banda MD Primary Care Provider Encounter Details Date Type Department Care Team (Latest Contact Info) Description 01/17/2017 Orders Only [facility] CONVERSION Scanning, Provider Social History Tobacco Use Types Packs/Day Years Used Date Smoking Tobacco: Never Assessed Comments Unknown Sex and Gender Information Value Date Recorded Sex Assigned at Not on file 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 Gender Identity Not on file Sexual Orientation Not on file documented as of this encounter Plan of Treatment Upcoming Encounters Date Type Department Care Team (Late st Contact Info) Description 04/13/2025 Documentation Cardiothoracic Surgery Marti Beach RN documented as of this encounter Procedures Procedure Name Priority Date/Time Associated Diagnosis Comments VASCULAR LABORATORY REPORT 01/17/2017 6:47 AM CDT documented in this encounter Results * VASCULAR LABORATORY REPORT (01/17/2017 6:47 AM CDT) Anatomical Region Laterality Modality Ultrasound us Provider Scanning CV VASCULAR PROCEDURES Final R esult documented in this encounter Visit Diagnoses Not on filedocumented in this encounter Additional Health Concerns Infection Onset Date Last Indicated Resolved Time COVID19 06/19/2024 06/19/2024 07/05/2024 3:05 AM LINEWORKER COVID: Recovered Comment:Added based on recent COVID infection. 07/05/2024 07/07/2024 10/03/2024 3:06 AM C DT Norovirus suspected 07/09/2024 07/09/2024 07/09/19 11:37 PM LINEWORKER COVID: Suspected 09/26/2024 09/26/2024 09/26/2024 11:23 PM CDT Norovirus suspected 09/28/2024 09/28/2024 09/29/19 2:10 PM CDT Norovirus 09/28/2024 09/28/2024 10/12/2024 3:06 AM CDT COVID: Suspected 10/13/2024 10/13/2024 10/13/2024 11:30 PM CDT documented as of this encounter Care Teams Thermal Molder Relationship Specialty Start Date End Date Unknown, Notinfile PCP - General 01/11/17 02/07/17 Gregory Banda MD [address] [address] PCP - General 02/08/17 08/21/18 Alberto Banda MD [address] [address] PCP - General 09/25/18 09/25/18 Gregory Banda MD [address] [address] PCP - General 09/26/18 09/29/18 Alberto Banda MD [address] [place] [address] PCP - General 08/22/18 09/24/18 Gregory Banda MD [address] [facility] [address] [place] [address] PCP - General 09/30/18 documented as of this encounter
--- OUTSIDE RECORDS SUMMARY | 2025-04-09 13:05 | XMS_ITS | Clinical Summary ---
Author Organization [facility] [email or web address] [facility] [employer] Address [address] [place] [address] Care Team Providers Care Data Entry Associate Name Role Phone Gregory Banda MD Primary Care Provider [phone] Source Comments [facility] [email or web address] [facility] [employer],non-owned Affiliates and Associated Physician Practices is amultiple site organization consisting of ambulatory clinics and hospital sitesin [place], [place], [place] and [place]. This disclosure is being madepursuant to the Care Everywhere program and may not contain all information available regarding this patient. Last updated 18.[facility] [email or web address] [facility] [employer] Allergies Active Allergy Reactions Criticality Noted Date Comments Penicillins Rash Medium 08/23/2018 Medications * This document contains information received from the source organization and may not represent a complete record from that organization. * Be aware that medications may not be up to date on this document. Alwaysverify current medications with the patient. aspirin (ASPIRIN) 325 MG tabletIndicati ons:Rheumatoid Arthritis Take 325 mg by mouth once daily Reasons: Rheumatoid Arthritis Active metFORMIN (GLUCOPHAGE) 1000 MG tabletIndicati ons:Type 2 Diabetes Mellitus Take 1,000 mg by mouth 2 times daily with morning and evening meal Reasons: Type 2 Diabetes Active atorvastatin (LIPITOR) 80 MG tabletIndicati ons:Hyperlipid emia Take 80 mg by mouth at bedtime Reasons: High Amount of Fats in the Blood Active levothyroxine (SYNTHROID) 200 MCG tabletIndicati ons:Hypothyroi dism Take 200 mcg by mouth daily before breakfast Active donepezil (ARICEPT) 10 MG tabletIndicati ons:Alzheimer' s Disease Take 10 mg by mouth at bedtime Active omeprazole (PRILOSEC) 20 MG capsuleIndicat ions:Heartburn Take 20 mg by mouth daily before breakfast Active furosemide (LASIX) 20 MG tabletIndicati ons:Hypertensi on Take 20 mg by mouth once daily Active albuterol-ipra tropium (DUO-NEB) 0.5-2.5 (3) MG/3ML nebulizer solutionIndica tions:Bronchos pasm Inhale 3 mL by mouth every 6 hours as needed for Shortness of Breath or Wheezing 9 Active fluPHENAZine (PROLIXIN) 5 MG tabletIndicati ons:Psychosis Take 1 tablet by mouth 2 times daily Reasons: Psychosis 60 tablet 9 Active insulin isophane & Reg, human, 70/30 (NOVOLIN 70/30 FLEXPEN) penIndications :Type 2 Diabetes Mellitus Inject 25 Units subcutaneously 2 times daily,before breakfast and supper Reasons: Type 2 Diabetes 1 Box 9 Active ciprofloxacin (CIPRO) 500 MG tabletIndicati ons:Urinary Tract Infection Take 1 tablet by mouth every 12 hours Reasons: Urinary Tract Infection 4 tablet 9 Active hydrOXYzine hcl (ATARAX) 25 MG tabletIndicati ons:Anxiety Take 1 tablet by mouth 4 times daily Reasons: Feeling Anxious 120 tablet 9 Active losartan (COZAAR) 50 MG tabletIndicati ons:Hypertensi on Take 1 tablet by mouth once daily Reasons: High Blood Pressure Disorder 30 tablet 9 Active Active Problems Problem Noted Date Diagnosed Date Vitamin D deficiency 06/18/2019 Lactic acidosis 06/12/2019 Pneumonitis 06/12/2019 Schizoaffective disorder 08/23/2018 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, probable, without behavioral disturbance 08/23/2018 Overview (04/07/2021): IMO 2020 Social History Tobacco Use Types Packs/Day Years Used Date Smoking Tobacco: Never Smokeless Tobacco: Never Tobacco Cessation:Counseling Given: Yes Alcohol Use Standard Drinks/Week Comments No 0 (1 standard drink = 0.6 oz pur e alcohol) AUDIT-C Answer Date Recorded Frequency of Alcohol Consumption Never 06/17/2019 Average Number of Drinks 1 or 2 019 Frequency of Binge Drinking Not on file 06/07 Overall Financial Resource Strain (CARDIA) Answe r Date Recorded Difficulty of Paying Living Expenses Somewhat olson rd 06/17/2019 Hunger Vital Sign Answer Date Recorded Worried About Running Out of Food in the Last Ye ar Patient declined 06/17/2019 Ran Out of Food in the Last Year Patient decline d 06/17/2019 PRAPARE - Transportation Answer Date Re corded Lack of Transportation (Medical) Patient decline d 06/17/2019 Lack of Transportation (Non-Medical) Patient dec lined 06/17/2019 Comments Unknown Sex and Gender Information Value Date Recorded Sex Assigned at Not on file Legal Sex Female 6:25 PM AXLE INSPECTOR Gender Identity Not on file Sexual Orientation Not on file Last Filed Vital Signs Vital Sign Reading Time Taken Comments Blood Pressure 140/74 06/23/2019 8:50 AM AXLE INSPECTOR Pulse 87 06/23/2019 8:50 AM AXLE INSPECTOR Temperature 36.6 C (97.8 F) 06/23/2019 8:50 AM AXLE INSPECTOR Respiratory Rate 18 06/23/2019 8:50 AM AXLE INSPECTOR Oxygen Saturation 97% 06/23/2019 8:50 AM AXLE INSPECTOR Inhaled Oxygen Concentration 21% 06/15/2019 3 :22 AM AXLE INSPECTOR Weight 111 kg (244 lb 11.2 oz) 06/17/2019 4:26 P M AXLE INSPECTOR Height 165.1 cm (5' 5) 06/12/2019 8:07 PM AXLE INSPECTOR Body Mass Index 40.72 06/12/2019 8:07 PM AXLE INSPECTOR Plan of Treatment Health Maintenance Due Date Last Done Comments BONE DENSITY TESTING 1945 MEDICARE AWV 12 MONTHS 1945 HEPATITIS C SCREENING 02/09/1965 DTAP/TDAP/TD VACCINES (1 - Tdap) 1966 PNEUMOCOCCAL VACCINE 50+ (1 of 1 - PCV) 1997 ZOSTER VACCINE (1 of 2) 1997 Respiratory Syncytial Virus (RSV) Vaccine Pt: or over 60 yrs (1 - 1-dose 75+ series) 2022 DEPRESSION SCREENING 07/08/2024 COVID-19 VACCINE (1 - 2023-2 5 season) 2025 INFLUENZA VACCINE (#1) 2025 HEPATITIS B VACCINE Aged Out No longe r eligible based on patient's age to complete this topic HIB VACCINE Aged Out No longer eligi ble based on patient's age to complete this topic HPV VACCINE Aged Out No longer eligi ble based on patient's age to complete this topic MENINGOCOCCAL (Group B) VACC INE SHARED DECISION-MAKING Aged Out No longer eligibl e based on patient's age to complete this topic MENINGOCOCCAL GROUPS A/C/Y/W VACCINE Aged Out No longer eligible b ased on patient's age to complete this topic Additional Health Concerns Infection Onset Date Last Indicated 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 06/19/2019 Insurance MEDICARE COMMERCIAL GENERIC ANTHEM * Guarantor: GAYE ROGER Account Type Relation to Patient Date of Phone Billing Address Personal/Family [address] [place] [address] ANTHEM MEDICARE * Guarantor: GAYE ROGER Account Type Relation to Patient Date of Phone Billing Address Personal/Family [address] [place] [address] * Guarantor: GAYE ROGER Account Type Relation to Patient Date of Phone Billing Address Personal/Family [address] [place] [address] Advance Directives * Full Code (Latest Code Status on File) Date Activated Date Inactivated Comments 06/17/2019 3:38 AM 06/23/2019 2:06 PM * Full Code Date Activated Date Inactivated Comments 06/12/2019 9:25 PM 06/17/2019 2:38 AM * Full Code Date Activated Date Inactivated Comments 08/23/2018 10:55 AM 08/27/2018 12:40 PM Care Teams Data Entry Associate Relationship Specialty Start Date End Date Gregory Banda MD [address] [place] [address] PCP - General Family Medicine 06/12/19
[2025-04-09 13:24] LABS: Hematocrit 40.7 % (37.0-47.0); Hemoglobin 13.1 g/dL (12.0-15.0); Immature Granulocyte Percent A 0.3 % (0-0.5); Lymphocytes Absolute Auto 4.59 K/mm3 (0.9-3.2); Mean Corpuscular HGB Conc 32.2 g/dl (32-36); Mean Corpuscular Hemoglobin 30.9 pg (26-34); Mean Corpuscular Volume 96.0 fl (80-100); Nucleated Red Blood Cells Absolute Auto 0.000 K/mm3 (0.0-0.012); Nucleated Red Blood Cells Perc 0.0 % (0.0-0.2); Platelet Count Result 230 k/mm3 (150-375); Red Blood Count 4.24 M/mm3 (4.2-5.4); White Blood Count 10.3 K/mm3 (4.5-10.0)
[2025-04-09 13:29] LABS: Add Urine Microscopic? YES; Appearance Urine Clear (Clear); Glucose Urine UA Negative (Negative); Leukocyte Esterase Ur 2+ LEU/UL (Negative); Nitrate Urine Negative (Negative); Non Pathogenic Casts 0-2; Specific Grav Ur 1.004 (1.001-1.035)
[2025-04-09 13:54] LABS: Alanine Aminotransferase 31 U/L (6-35); Albumin Level 4.4 g/dL (3.5-5.1); Alkaline Phosphatase 114 U/L (38-126); Anion Gap 9 mmol/L (4-12); Aspartate Amino Transferase 49 U/L (14-36); Bilirubin,Total 0.5 mg/dL (0.2-1.3); Blood Urea Nitrogen 9 mg/dL (7-17); Calcium 9.5 mg/dL (8.4-10.2); Carbon Dioxide 29 mmol/L (22-30); Chloride 94 mmol/L (98-107); Estimated Glomerular Filt Rate 52; Glucose 107 mg/dL (65-110); Potassium 3.8 mmol/L (3.4-5.0); Sodium 132 mmol/L (137-145); Total Protein 8.7 g/dL (6.3-8.2)
== END 2025-04-09 13:01 | disposition home or self-care (01) ==
LOC: ANHLAB 13:02
PROVIDERS: PCP Family Medicine; Visit Provider Physician Assistant Medical
DX: M54.50 Low back pain, unspecified (principal); R35.0 Frequency of micturition
CPT/HCPCS: 36415; 80053; 81001; 85025; 87086

== ENCOUNTER 2025-06-10 12:42 | Outpatient (CLI) | payer MEDICARE, SELFPAY ==
[2025-06-10 14:02] LABS: Influenza A QL RT-PCR Negative (Negative); Influenza B QL RT-PCR Negative (Negative); RSV RNA, RT-PCR Negative (Negative); SARS-CoV-2 RNA PCR Negative (Negative)
== END 2025-06-10 12:43 | disposition home or self-care (01) ==
PROVIDERS: PCP Family Medicine; Visit Provider Physician Assistant
DX: J02.9 Acute pharyngitis, unspecified (principal); Z20.822 Contact with and (suspected) exposure to COVID-19
CPT/HCPCS: 87637

== ENCOUNTER 2025-07-07 11:13 | Outpatient (CLI) | payer MEDICARE, SELFPAY ==
--- OUTSIDE RECORDS SUMMARY | 2025-07-07 11:36 | XMS_ITS | Encounter Summary ---
Author Organization [facility] Address [address] [place] [address] Phone Care Team Providers Care Adz Worker Name Role Phone Unknown, Notinfile Primary Care Provider Unavail able Gregory Banda MD Primary Care Provider Alberto Banda MD Primary Care Provider + [phone] Gregory Banda MD Primary Care Provider Alberto Banda MD Primary Care Provider + [phone] Gregory Banda MD Primary Care Provider Keith Montgomery MD Unavailable Citlali Ruffin MD Unavailable Nicolas Archer MD Unavailable [phone] Encounter Details Date Type Department Care Team (Latest Contact Info) Description 01/17/2017 Orders Only [facility] CONVERSION Scanning, Provider Social History Tobacco Use Types Packs/Day Years Used Date Smoking Tobacco: Never Assessed Comments Unknown Sex and Gender Information Value Date Recorded Sex Assigned at Not on file Legal Sex Female 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 07/05/2024 07/07/2024 10/03/2024 3:06 AM C DT Norovirus suspected 07/09/2024 07/09/2024 07/09/19 11:37 PM DICER MACHINE OPERATOR COVID: Suspected 09/26/2024 09/26/2024 09/26/2024 11:23 PM CDT Norovirus suspected 09/28/2024 09/28/2024 09/29/19 2:10 PM CDT Norovirus 09/28/2024 09/28/2024 10/12/2024 3:06 AM CDT COVID: Suspected 10/13/2024 10/13/2024 10/13/2024 11:30 PM CDT documented as of this encounter Care Teams Adz Worker Relationship Specialty Start Date End Date Unknown, Notinfile PCP - General 01/11/17 02/07/17 Gregory Banda MD [address] [place] [address] PCP - General 02/08/17 08/21/18 Alberto Banda MD [address] [place] [address] PCP - General 09/25/18 09/25/18 Gregory Banda MD [address] [place] [address] PCP - General 09/26/18 09/29/18 Alberto Banda MD [address] [place] [address] PCP - General 08/22/18 09/24/18 Gregory Banda MD [address] [facility] [address] [place] [address] PCP - General 09/30/18 Keith Montgomery MD [address] [facility] [address] [place] [address] Consulting Physician Cardiology 05/27/25 Citlali Ruffin MD [id number] [place] [address] Surgeon Cardiothoracic Surgery 06/15/25 Nicolas Archer MD [address] [facility] [address] [place] [address] Consulting Physician Cardiology 06/15/25 documented as of this encounter
--- OUTSIDE RECORDS SUMMARY | 2025-07-07 11:36 | XMS_ITS | Data Portability ---
Author Organization [facility] [place] Address [address] [place] [address] [place] [address] Care Team Providers Care Patient Relations Coordinator Name Role Phone ANDREA INIGUEZ Primary Care Provider Assessment No assessment recorded. Plan of Treatment Reminders Order Date Submit Date Provider Last Modified By Organization Details Last Modified Time Details Appointments None recorded. Lab None recorded. Referral None recorded. Procedures None recorded. Surgeries None recorded. Imaging US, pelvis [address] [facility] [address], [address], [place], [address], 3 20:04:36 US, transvagina l [address], [facility] [address], [address], [place], [address], 3 20:04:36 Medication Orders None recorded. Patient TargetsNo targets recorded. Patient InstructionsNo instructions recorded. Reason for Referral None Reported. Results Created Date Observation Date Name Description Value Unit Range Abnormal Flag Note LastModifiedBy Organization Detail LastModifiedTime 07/16/19 23 07/16/2022 IMAGE GUIDE D PAP AND HPV REGAR DLESS image guided Pap, HPV regardless of Pap result SEE RESULT S BELOW CASE REPOR T: Cytol ogy Gynec ologi diego Repor t Case: [id number] Autho rifransicon g Provi hilary: Jessica Link MD Colle cted: 07/16 0819 Order ing Locat ion: [place] [facility] Recei uhma: 07/17 0635 First Scree n: Elizabeth Cruz, CT Speci men: Scree kellie Pap - Image d, Cervi x STATE MENT OF ADEQU ACY: Satis facto ry for evalu ation Trans forma tion zone compo nent canno t be defin itive ly ident ified due to the prese nce of atrop hy or other hormo nal cid es FINAL DIAGN OSIS: Negat rory for Intra epith elial Lesio n or Corona cummins (NIL) . Atrop hic cell sandra monteiro. Elect raoul ortiz rosangela d by Elizabeth Cruz, CT on 2022 at 11:27 AM ----- ----- ----- ----- ----- ----- ----- ----- ----- ----- ----- ----- ----- ----- ----- ----- ----- ---- HPV RESUL TS: HPV mRNA E6/E7 : No HPV mRNA Detec john NOTE: This high risk HPV mRNA assay detec ts fourt een high- risk HPV types (16, 18, 31, 33, 35, 39, 45, 51, 52, 56, 58, 59, 66, 68) witho ut diffe renti ation . COMME NT: Note: This speci men was revie wed by a Cytot echno logis t and/o r Patho logis t (as indic ated in this repor t) after evalu ation using the Thinp rep Imagi ng Syste m. CLINI DIEGO INFOR MATIO N: Menst rual Statu s: LMP (if appli cable ): Clini diego Histo ry/Pr eviou s Pap: Type of Neopl issac (if appli cable ): Signi fican t Clini diego Findi ngs: Other Histo ry: Hormo wilfred (if appli cable ): PAP EDUCA LUKE L NOTE: The Pap Test is a scree kellie test with an inher ent false negat rory rate. Liqui d-bas ed sampl ing may decre ase, but will not elimi jae, false negat rory resul ts. A negat rory resul t does not precl ude the prese nce and/o r devel opmen t of disea se, since the prese nce of abnor mal cells in the sampl e depen ds on the locat ion of the lesio n and sampl ing techn ique. Davon nued regul ar scree kellie is the best metho d of cance r preve ntion . If repor john cytol ogic findi ng do not corre late with physi diego and/o r histo rical findi ngs, furth er inves tigat ion is recom ronnie d, as clini polina warra nted. Not Available [facility] (Lab) [address], [place], [address], 07/18/2022 12:30:18 07/19/19 23 07/19/2022 US, pelvi s No observ ation record ed. [email or web address] [place] [address], [place], [address], 07/19/2022 17:56:26 07/19/19 23 07/19/2022 US, trans vagin al No observ ation record ed. [email or web address] [place] [address], [place], [address], 07/19/2022 17:56:18 07/19/19 23 07/19/2022 US, pelvi s No observ ation record ed. [email or web address] [address], [place], [address], 07/19/2022 19:53:50 12/28/19 23 12/26/2022 DEXA No observ ation record ed. jose [facility] [address], [place], [address], 01/01/2023 12:00:45 01/03/20 DEXA, axial skele ton + verte bral fract ure asses sment No observ ation record ed. jose [facility] [address], [place], [address], 01/03/2023 11:52:12 Result Notes None recorded. Procedures Surgical History Date Name Laterality Status Provider Name and Address Organization Details Recorded Time Tubal Ligation completed [facility] 07/14/2022 10:56:19 Imaging Results None recorded. Procedure Notes None recorded. Medical Equipment None Reported. Allergies No known drug allergies Medications Name Sig Start Date Stop Date Status Note LastModified by Organization Details LastModified Time atorvastati n 80 mg tablet active Not Available Not Available Not Available naproxen 375 mg tablet TAKE 1 TABLET BY MOUTH TWICE DAILY W MEALS active Not Available Not Available No t Available fluphenazin e 2.5 mg tablet active Not Available Not Available Not Available donepezil 10 mg tablet active Not Available Not Available Not Available naproxen 250 mg tablet active Not Available Not Available Not Available metformin 1,000 mg tablet active Not Available Not Available Not Available levothyroxi ne 125 mcg tablet active Not Available Not Available Not Available sertraline 25 mg tablet active Not Available Not Available Not Available omeprazole 20 mg capsule,del ayed release active Not Available Not Available Not Available furosemide 20 mg tablet active Not Available Not Available Not Available losartan 100 mg tablet active Not Available Not Available Not Available fluphenazin e 5 mg tablet active Not Available Not Available Not Available ferrous sulfate active Not Available Not Available Not Available BinaxNOW COVID-19 Ag Self Test kit TEST DIRECTED TODAY 07/14 completed Not Available Not Available Not Available Vitals Date Recorded Body height Body mass index (BMI) Body weight Systolic And Diastolic Provider Name and Address Organization Details Last Updated DateTime 07/14/2022 165.1 cm 33.9 kg/m2 92948.84 g 140/62 mm[Hg] [facility] 07/14/2022 11:50:13 Date Recorded Body height Body mass index (BMI) Body weight Systolic And Diastolic Provider Name and Address Organization Details Last Updated DateTime 08/06/2022 165.1 cm 33.8 kg/m2 83883.25 g 146/71 mm[Hg] Luba Jamison [facility] 08/06/2022 17:24:35 Social History None recorded. Functional Status None recorded. Mental Status None recorded. Family History Nothing Reported. Medical History Condition Response Allergies (Food, seasonal, environmental ) N Other N Breast Cancer N Drug/Latex Allergies/Reactions N Blood Transfusion N Dermatologic Disorders N Lung Disease N Defects or Inherited Disease N Breast Problem N Gestational Diabetes N Hematologic disorders N Anesthesia Complications N History of STI N Deep Vein Thrombosis N Polycystic ovary syndrome N Anxiety Disorder N Autoimmune disease N Arthritis N Infertility N Polyps N Acid Reflux (GERD) N History of abnormal pap N Cancer N Stroke N Varicosities N Neurologic/Epilepsy N Endometriosis N High Cholesterol Y Headaches N Fibromyalgia N Kidney Disease N Heart Problems N Kidney or Bladder Problems N Thyroid Problems Y GI Problems N Eating Disorder N Anemia Y Art (IVF or FET) N Psychiatric Illness Y Ovarian Cancer N Diabetes N Pulmonary (TB, Asthma) N Hepatitis/Liver Disease N No Past Medical History N Eczema N Urinary Tract Infection N Abuse/Domestic Violence N Asthma N Trauma/Violence N Depression/ depression N Heart Disease N Pre-Eclampsia N Hypertension Y Osteoporosis N Thrombophilias N Gynecological History Statement/Question Response Date of Last Mammogram Date of Last Colonoscopy Most Recent Bone Density Date of LMP 12/06/1997 Age of first menstrual cycle 15 Date of Last Pap Smear Current Control Method Tubal Ligat ion Obstetrics History GPAL:G 6 P 3 0 3 3 Type Value Full Term 3 Spontaneous 3 Living 3 Total 6 Past Encounters Encounter ID Performer Location Encounter Start Date Encounter Closed Date Diagnosis/Indication Diagnosis SNOMED-CT Code Diagnosis ICD10 Code Diagnosis IMO Codes Diagnosis Note [id number] Maxi Link MD [place] [address] [address] 07/14/2022 10:31:13 07/14/2022 12:39:09 Gynecologic examination 17106302 Z01.419 Annual gynecologi diego exam performed. Patient will come back in a year unless there are new symptoms. Suggest Calcium with Vitamin D if not eating in diet. Patient advised to get annual flu shot. Recommend yearly physicals and preform monthly breast exams. Genetic testing is available for patients with family history of cancer. Engage in safe sexual practices, use condoms. Encouraged to have daily exercise. Avoid tobacco and illicit drugs, moderation of alcohol. If BMI greater than 25 dietary consult advised. If you have any questions please call or email. Mammogram - ordered Pap - today left lower quadrant pain, to get pelvic ultrasound to evaluate female genital tract, patient has diarrhea, may be associated with diarrhea her colon. [id number] Maxi Link MD [place] [address] [address] 07/19/2022 16:51:25 07/20/2022 12:46:02 Left lower quadrant pain 736877234 R10.32 [id number] Maxi Link MD [place] [address] [address] 08/06/2022 16:58:54 08/07/2022 14:48:49 Abdominal pain 72283015 R10.9 this patient is a 77-year-ol d female who presents for follow-up on left lower quadrant pain and ultrasound . Pelvic ultrasound was obtained. Is normal, and a gynecologi c etiology of this pain cannot be identified . Talked about potential diagnoses. We talked about further evaluation . She has diarrhea and left lower quadrant pain primarily. I believe a gastroente rologist may be better suited to identify the etiology of this pain and treated. We will make referral to Gastroente rology. I spent 20 minutes with the patient. More than 50% was counseling . Talked about ultrasound results. Talked about detailed issues surroundin g her problem. Health Concerns Section Related Observation LastModified by Organization Detai ls LastModified Time None Recorded Concern Status LastModified by Organization Details LastModified Time None Recorded Advance Directives Directive None Recorded Payers Insurance Date Sequence Insurance Name Policy Number Policy [place] Covered Member ID [place] Member ID Guarantor Name 08/29/2022 1 [place] Gaye Roger [id number] Gaye Roger 08/03/2022 2 [place] [id number] Gaye Roger [id number] Gaye Roger Notes Date Note Type Note Provider Name and Address Organization Details Recorded Time 3 text/html Annual GYNReported by PatientHistoryFor history, patient reportsno gynecologic complaints.Genitourinar y symptomsFor menstrual cycle, patient reportsnormal menses. For urinary symptoms, patient reportsno hematuria. For vulva, patient reportsno genital lesion. For vagina, patient reportsnormal vaginal discharge.Breast symptomsFor breast, patient reportsbreast lump.Endocrine symptomsFor menopausal symptoms, patient reportsno menopausal symptoms.Psychological symptomsFor psychological symptoms, patient reportsno depressionandno anxiety.patient reports lower left abdominal pain. She also reports symptom Maxi Link MD [address], [place], [address], [facility] 07/14/2022 12:18:08 3 text/html this patient is a 77-year-old female who presents for follow-up on left lower quadrant pain and ultrasound. Pelvic ultrasound was obtained. Is normal, and a gynecologic etiology of this pain cannot be identified. Talked about potential diagnoses. We talked about further evaluation. She has diarrhea and left lower quadrant pain primarily. I believe a meat boner and slicer may be better suited to identify the etiology of this pain and treated. We will make referral to Gastroenterology. I spent 20 minutes with the patient. More than 50% was counseling. Talked about ultrasound results. Talked about detailed issues surrounding her problem. Maxi Link MD [address], [place], [address], [place] [facility] 08/06/2022 18:09:34 OBGyn Episode Ob Episode Information Episode Created Date Number of Fetuses Patient Bloodtype Patient rh Status Prepregnancy Weight lbs Domestic Partner Domestic Partner Phone Father Name [employer] Laboratory Assistant Status 07/14/19 23 1 CLOSED Fetus Data First Name Last Name Admitted to NICU Weight (g) Sex Living Outcome Pediatric Complications Fetus ID Race Codes Race Delivery Type , Spontane ous [id number] Chemo Calculation Initial Chemo Date Initial Exam Date Initial Exam Provider Initial Ultrasound Date Last Menstrual Period Date Ultra Sound Weeks Gestation 0 Eighteen To Twenty Week Chemo Update Ultra Sound Date Fundal Height At Umbil Quickening Date Ultra Sound Latest Weeks Gestation Final Chemo Confirmed By Final Chemo Confirmed Date Final Chemo Date Ultra Sound Latest Days Gestation 0 0 Menstrual History Last Menstrual Date Menses Monthly On Bcp Conception Prior Menses Frequency Hcg Plus Date Menarche Onset Age Delivery Information Delivery Date Delivery Type Labor Anesthesia Weeks Gestation Incision Type Labor Labor Length Hrs Delivered By Post Complications Tubal Sterilization Discharge Date Comments 5 Discharge Information Feeding Method Contraceptive Method Maternal HG B and HCT Levels Ob Episode Information Episode Created Date Number of Fetuses Patient Bloodtype Patient rh Status Prepregnancy Weight lbs Domestic Partner Domestic Partner Phone Father Name [employer] Laboratory Assistant Status 07/14/19 23 1 CLOSED Fetus Data First Name Last Name Admitted to NICU Weight (g) Sex Living Outcome Pediatric Complications Fetus ID Race Codes Race Delivery Type 3175.14 4 F Full Term [id number] Vaginal Delivery Chemo Calculation Initial Chemo Date Initial Exam Date Initial Exam Provider Initial Ultrasound Date Last Menstrual Period Date Ultra Sound Weeks Gestation 0 Eighteen To Twenty Week Chemo Update Ultra Sound Date Fundal Height At Umbil Quickening Date Ultra Sound Latest Weeks Gestation Final Chemo Confirmed By Final Chemo Confirmed Date Final Chemo Date Ultra Sound Latest Days Gestation 0 0 Menstrual History Last Menstrual Date Menses Monthly On Bcp Conception Prior Menses Frequency Hcg Plus Date Menarche Onset Age Delivery Information Delivery Date Delivery Type Labor Anesthesia Weeks Gestation Incision Type Labor Labor Length Hrs Delivered By Post Complications Tubal Sterilization Discharge Date Comments 9 Discharge Information Feeding Method Contraceptive Method Maternal HG B and HCT Levels Ob Episode Information Episode Created Date Number of Fetuses Patient Bloodtype Patient rh Status Prepregnancy Weight lbs Domestic Partner Domestic Partner Phone Father Name [employer] Laboratory Assistant Status 07/14/19 23 1 CLOSED Fetus Data First Name Last Name Admitted to NICU Weight (g) Sex Living Outcome Pediatric Complications Fetus ID Race Codes Race Delivery Type 3203.26 6704 M Full Term [id number] Vaginal Delivery Chemo Calculation Initial Chemo Date Initial Exam Date Initial Exam Provider Initial Ultrasound Date Last Menstrual Period Date Ultra Sound Weeks Gestation 0 Eighteen To Twenty Week Chemo Update Ultra Sound Date Fundal Height At Umbil Quickening Date Ultra Sound Latest Weeks Gestation Final Chemo Confirmed By Final Chemo Confirmed Date Final Chemo Date Ultra Sound Latest Days Gestation 0 0 Menstrual History Last Menstrual Date Menses Monthly On Bcp Conception Prior Menses Frequency Hcg Plus Date Menarche Onset Age Delivery Information Delivery Date Delivery Type Labor Anesthesia Weeks Gestation Incision Type Labor Labor Length Hrs Delivered By Post Complications Tubal Sterilization Discharge Date Comments 4 Discharge Information Feeding Method Contraceptive Method Maternal HG B and HCT Levels Ob Episode Information Episode Created Date Number of Fetuses Patient Bloodtype Patient rh Status Prepregnancy Weight lbs Domestic Partner Domestic Partner Phone Father Name [employer] Laboratory Assistant Status 07/14/19 23 1 CLOSED Fetus Data First Name Last Name Admitted to NICU Weight (g) Sex Living Outcome Pediatric Complications Fetus ID Race Codes Race Delivery Type , Spontane ous [id number] Chemo Calculation Initial Chemo Date Initial Exam Date Initial Exam Provider Initial Ultrasound Date Last Menstrual Period Date Ultra Sound Weeks Gestation 0 Eighteen To Twenty Week Chemo Update Ultra Sound Date Fundal Height At Umbil Quickening Date Ultra Sound Latest Weeks Gestation Final Chemo Confirmed By Final Chemo Confirmed Date Final Chemo Date Ultra Sound Latest Days Gestation 0 0 Menstrual History Last Menstrual Date Menses Monthly On Bcp Conception Prior Menses Frequency Hcg Plus Date Menarche Onset Age Delivery Information Delivery Date Delivery Type Labor Anesthesia Weeks Gestation Incision Type Labor Labor Length Hrs Delivered By Post Complications Tubal Sterilization Discharge Date Comments 7 Discharge Information Feeding Method Contraceptive Method Maternal HG B and HCT Levels Ob Episode Information Episode Created Date Number of Fetuses Patient Bloodtype Patient rh Status Prepregnancy Weight lbs Domestic Partner Domestic Partner Phone Father Name [employer] Laboratory Assistant Status 07/14/19 1 CLOSED Fetus Data First Name Last Name Admitted to NICU Weight (g) Sex Living Outcome Pediatric Complications Fetus ID Race Codes Race Delivery Type 2976.47 0704 F Full Term [id number] Vaginal Delivery Chemo Calculation Initial Chemo Date Initial Exam Date Initial Exam Provider Initial Ultrasound Date Last Menstrual Period Date Ultra Sound Weeks Gestation 0 Eighteen To Twenty Week Chemo Update Ultra Sound Date Fundal Height At Umbil Quickening Date Ultra Sound Latest Weeks Gestation Final Chemo Confirmed By Final Chemo Confirmed Date Final Chemo Date Ultra Sound Latest Days Gestation 0 0 Menstrual History Last Menstrual Date Menses Monthly On Bcp Conception Prior Menses Frequency Hcg Plus Date Menarche Onset Age Delivery Information Delivery Date Delivery Type Labor Anesthesia Weeks Gestation Incision Type Labor Labor Length Hrs Delivered By Post Complications Tubal Sterilization Discharge Date Comments 1 Discharge Information Feeding Method Contraceptive Method Maternal HG B and HCT Levels Ob Episode Information Episode Created Date Number of Fetuses Patient Bloodtype Patient rh Status Prepregnancy Weight lbs Domestic Partner Domestic Partner Phone Father Name [employer] Laboratory Assistant Status 07/14/19 1 CLOSED Fetus Data First Name Last Name Admitted to NICU Weight (g) Sex Living Outcome Pediatric Complications Fetus ID Race Codes Race Delivery Type , Spontane ous [id number] Chemo Calculation Initial Chemo Date Initial Exam Date Initial Exam Provider Initial Ultrasound Date Last Menstrual Period Date Ultra Sound Weeks Gestation 0 Eighteen To Twenty Week Chemo Update Ultra Sound Date Fundal Height At Umbil Quickening Date Ultra Sound Latest Weeks Gestation Final Chemo Confirmed By Final Chemo Confirmed Date Final Chemo Date Ultra Sound Latest Days Gestation 0 0 Menstrual History Last Menstrual Date Menses Monthly On Bcp Conception Prior Menses Frequency Hcg Plus Date Menarche Onset Age Delivery Information Delivery Date Delivery Type Labor Anesthesia Weeks Gestation Incision Type Labor Labor Length Hrs Delivered By Post Complications Tubal Sterilization Discharge Date Comments 0 Discharge Information Feeding Method Contraceptive Method Maternal HG B and HCT Levels
--- OUTSIDE RECORDS SUMMARY | 2025-07-07 11:36 | XMS_ITS | Clinical Summary ---
Author Organization [facility] Address [address] [place] [id number] Phone Care Team Providers Care Director Of Enterprise Architecture Name Role Phone Unavailable Primary Care Provider [...]
--- OUTSIDE RECORDS SUMMARY | 2025-07-07 11:37 | XMS_ITS | Encounter Summary ---
Author Organization [facility] Healthcare Address [address] [place] [address] Care Team Providers Care Barber Name Role Phone Gregory Banda MD Primary Care Provider Keith Montgomery MD Unavailable Citlali Ruffin MD Unavailable Nicolas Archer MD Unavailable [phone] Encounter Details Date Type Department Care Team (Late st Contact Info) Description 02/23/2025 Cardiology Conference [facility] Non-invasive Cardiac Diagnostic Testing [id number] [place] [address] Luis M Lee, RN Social History Tobacco Use Types Packs/Day Years Used Date Smoking Tobacco: Never Smokeless Tobacco: Never Alcohol Use Standard Drinks/Week Comments Not Currently 0 (1 standard drink = 0.6 oz pur e alcohol) [facility] Utilities Answer Date Recorded In the past 12 months has [employer] gas, oil, or water [employer] threatened to shut off services in your [...] week 09/28/2024 How often do you attend [facility] or gnosticist services? Never 09/28/2024 Do you belong to any clubs o r organizations such as anabaptism groups, unions, fraternal or athletic groups, or [...] any time in the past 12 m [facility], were you homeless or living in a fdc (including now)? No 09/28/2024 Personal Safety Answer Date Recorded Have you ever been in or are you currently in a harmful physical or emotional relationship or is someone making you feel afraid or unsafe? 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 Sex Female 8:51 PM [employer] Gender Identity Not on file Sexual Orientation Not on file documented as of this encounter Progress Notes * Marti Beach RN - 02/23/2025 8:30 AM CDT [place] Cardiomyopathy Questionnaire (CQ-12) The following questions refer to your heart failure and how it may affect your life. Please read and complete/answer the following questions. There are no right or wrong answers. Please rocael or indicate the answer that best applies to you. 1. Heart failure affects different people in different ways. Some feel shortness of breath while others feel fatigue. Please indicate how much you are limited by heart failure (shortness of breath orfatigue) in your ability to do the following activities over the past 2 weeks. Activities: Extremely Limited (1) Quite a bit limited (2) Moderately Limited (3) Slightly Limited (4) Not at all limited (5) Limited for other reasons or does not apply (6) Showering/Bathing X Walking 1 block of level ground X Hurrying or jogging (as if to catch a bus) X 2. Over the past 2 weeks, how many times did you have swelling in your feet, ankles or legs when you woke up in the morning? Every Morning (1) 3 or more times a week (2) 1-2 times a week (3) Less than once a week (4) Never in the past 2 weeks (5) X 3. Over the past 2 weeks, on average, how many times has fatigue limited your ability to do what you wanted? All of the time (1) Several times a day (2) At least once a day (3) 3 or more times a week but not every day (4) 1-2 times per week (5) Less than once a week (6) Never over the past 2 weeks (7) X 4. Over the past 2 weeks, on average, how many times has shortness of breath limited your ability to do what you wanted? All of the time (1) Several times a day (2) At least once a day (3) 3 or more times a week but not every day (4) 1-2 times per week (5) Less than once a week (6) Never over the past 2 weeks (7) X 5. Over the past 2 weeks, on average, how many times have you been forced to sleep sitting up in a chair or with at least 3 pillows to prop you up because of shortness of breath? Every Night (1) 3 or more times a week (2) 1-2 times a week (3) Less than once a week (4) Never in the past 2 weeks (5) X 6. Over the past 2 weeks, how much has your heart failure limited your enjoyment of life? Extremely Limited (1) Quite a bit limited (2) Moderately Limited (3) Slightly Limited (4) Not at all limited (5) X 7. If you had to spend the rest of your life with your heart failure the way it is right now, how would you feel about this? Not at all satisfied (1) Mostly dissatisfied (2) Somewhat satisfied (3) Mostly satisfied (4) Completely satisfied (5) X 8. How much does your heart failure affect your lifestyle? Please indicate how your heart failure may have limited your participation in the following activities over the past 2 weeks. 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 Visiting family or friends outside of the home X documented in this encounter Plan of Treatment Not on file documented as of this encounter Visit Diagnoses Not on filedocumented in this encounter Care Teams Barber Relationship Specialty Start Date End Date Gregory Bnada MD [address] [address] PCP - General 09/30/18 Keith Montgomery MD [address] [address] Consulting Physician Cardiology 05/27/25 Citlali Ruffin MD [id number] [place] [address] Surgeon Cardiothoracic Surgery 06/15/25 Nicolas Archer MD [address] [place] [address] Consulting Physician Cardiology 06/15/25 documented as of this encounter
--- OUTSIDE RECORDS SUMMARY | 2025-07-07 11:37 | XMS_ITS | Clinical Summary ---
Author Organization [facility] Address [address] [place] [address] Care Team Providers Care Oven Technician Name Role Phone Gregory Banda MD Primary Care Provider Keith Montgomery MD Unavailable Citlali Ruffin MD Unavailable Nicolas Archer MD Unavailable [phone] Allergies Active Allergy Reactions Criticality Noted Date Comments Penicillins Rash Medium 08/23/2018 Medications atorvastatin (LIPITOR) 80 mg tablet Take 1 tablet (80 mg total) by mouth nightly Active omeprazole (PriLOSEC) 40 mg capsule Take 1 capsule (40 mg total) by mouth daily Active albuterol HFA (PROVENTIL HFA,VENTOLIN HFA,PROAIR HFA) 90 mcg/actuation inhaler Inhale 2 puffs every 4 (four) hours as needed for shortness of breath 6.7 g 06/20/20 24 Active aspirin 81 mg enteric coated tablet Take 1 tablet (81 mg total) by mouth every morning Active levothyroxine (SYNTHROID) 137 mcg tablet 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 Active ferrous sulfate 325 mg (65 mg of elemental iron) tablet Take 1 tablet (325 mg total) by mouth daily with breakfast Active dicyclomine (BENTYL) 10 mg capsule Take 1 capsule (10 mg total) by mouth 3 (three) times a day as needed 07/03/20 24 Active memantine (NAMENDA) 10 mg tablet Take 1 tablet (10 mg total) by mouth 2 (two) times a day Active metoclopramide (REGLAN) 10 mg tablet Take 1 tablet (10 mg total) by mouth 3 (three) times a day as needed (nausea/vomitin g.) 14 tablet 10/01/19 25 Active traZODone (DESYREL) 50 mg tablet Take 1 tablet (50 mg total) by mouth nightly as needed for sleep 10/07/19 25 Active insulin degludec (TRESIBA) 200 unit/mL (3 mL) pen for injection Inject 0.23 mL (46 Units total) under the skin every morning 01/13/20 25 Active furosemide (LASIX) 20 mg tablet Take 1 tablet (20 mg total) by mouth every morning Active insulin aspart (NovoLOG) 100 unit/mL (3 mL) pen for injection Inject 14 Units under the skin 3 (three) times a day 14 UNITS before meals, uses sliding scale if BG over 199-299 give additional 2 units. 300-400 add 2 units. >400 Call MD 03/03/20 25 Active Ultra-Fine Pen Needle 31 gauge x 5/16 needle USE TO INJECT INSULIN AT LEAST TWICE DAILY 03/01/20 25 Active acetaminophen (TYLENOL) 325 mg tabletIndications: Pain Take 2 tablets (650 mg total) by mouth every 4 (four) hours as needed for pain 06/15/20 25 Active docusate sodium (COLACE) 100 mg capsuleIndications :constipation Take 1 capsule (100 mg total) by mouth 2 (two) times a day as needed for constipation 10 capsule 06/15/20 25 Active losartan (COZAAR) 50 mg tablet Take 1 tablet (50 mg total) by mouth every morning 07/02/20 25 Active guaiFENesin-dextro methorphan ER (MUCINEX DM) 600-30 mg tablet extended release 12 hr Take 1 tablet by mouth every 12 (twelve) hours 28 tablet 06/20/20 24 025 Discontin ued(Stop Taking at Discharge ) ondansetron ODT (ZOFRAN-ODT) 4 mg disintegrating tabletIndications: Nausea and vomiting Take 1 tablet (4 mg total) by mouth every 8 (eight) hours as needed for nausea or vomiting 20 tablet 2 07/14/19 25 025 Discontin ued(Stop Taking at Discharge ) losartan (COZAAR) 100 mg tablet Take 1 tablet (100 mg total) by mouth every morning 025 Discontin ued(Reord er) guaiFENesin (ROBITUSSIN) syrup 100 mg/5 mL Take 20 mL by mouth 3 (three) times a day as needed for cough 025 Discontin ued(Stop Taking at Discharge ) Active Problems Problem Noted Date Diagnosed Date S/P TAVR (transcatheter aortic valve replacement ) 06/14/2025 Assessment & Plan (06/15/2025 8:49 AM CHUTE WORKER): TTE today PT/OT eval ASA 81 Monitor on tele for any AVB Goal SBP <160 and MAP >65 Has new LBBB-will need 30 day MCT at discharge to further evaluate for high degree AVB Encounter for examination fo r normal comparison and control in clinical research program 05/27/2025 Severe aortic stenosis 04/22/2025 Assessment & Plan (06/14/2025 8:21 AM CHUTE WORKER): TAVR 06/14 Acute hyponatremia 10/14/2024 Altered mental status, unspe [...] 04/20/2021 Diabetes mellitus 07/03/2019 Assessment & Plan (06/14/2025 8:21 AM CHUTE WORKER): Accuchecks, insulin Assessment & Plan (09/27/2024 3:56 AM CDT): Hold home regimen Lantus insulin protocol Fingersticks q.a.c. and HS with sliding scale coverage A1c level 7.0 (06/21/2024) Thyroid disease 07/03/2019 Assessment & Plan (06/14/2025 8:22 AM CHUTE WORKER): Continue levothyroxine Essential (primary) hypertension 07/03/2019 Assessment & Plan (06/15/2025 10:16 AM CHUTE WORKER): Goal SBP <160 and MAP >65 Can use hydralazine PRN for SBP >160 Avoid AV sj blocking agents Assessment & Plan (09/27/2024 3:57 AM CDT): [...] Encounters Date Type Department Care Team Description 07/02/2025 Telephone [facility] Cardiology [address] [facility] Advanced [facility] 8th [place] [address] [place] [address] Nicolas Archer MD 06/21/2025 Telephone [facility] Surgery Nighat Dudley NP 06/17/2025 Telephone [facility] Cardiology [address] [facility] 8th [place] [address] [place] [address] Kelly Parks RN 06/15/2025 Telephone [facility] Cardiology [address] [facility] 8th [place] [address] [place] [address] Michelle Cruz 06/14/2025 8:33 AM CHUTE WORKER Anesthesia Event [facility] Electrophysiology Lab [address] [place] [address] Kaveh Moore MD Wiethuchter, Kelli P., NP 06/14/2025 8:30 AM CHUTE WORKER - 06/14/2025 10:55 AM CHUTE WORKER Surgery [facility] Electrophysiology Lab [address] [place] [phone] Nicolas Archer MD TAVR - PERCUTANEOUS FEMORAL [id number] 06/14/2025 6:30 AM CHUTE WORKER - 06/15/2025 6:14 PM CHUTE WORKER Hospital Encounter [address] [address] Citlali Ruffin MD S/P TAVR (transcatheter aortic valve replacement) (Primary Dx); Severe aortic stenosis; Encounter for examination for normal comparison and control in clinical research program; New onset left bundle branch block (LBBB); Essential (primary) hypertension; Sinus tachycardia Discharge Disposition: Discharge to home, home health skilled care 06/13/2025 Telephone [facility] Cardiology [facility] Medical Office Building [address] [place] [address] Eulalia Carbajal CMA 06/02/2025 11:03 PM CHUTE WORKER - 06/02/2025 11:59 PM CHUTE WORKER Hospital Encounter [address] [address] Preoperative testing Discharge Disposition: Discharge to home or self care 06/02/2025 4:30 PM CHUTE WORKER Lab [facility] [address] [address] [place] [id number] Preoperative testing; Bruising; Severe aortic stenosis; Abnormal finding of blood chemistry, unspecified; History of heart valve abnormality 06/02/2025 2:30 PM CHUTE WORKER Pre-Admission Testing [facility] Pre-Anesthesia Testing [place] [address] Preoperative testing (Primary Dx); Bruising 06/02/2025 2:00 PM CHUTE WORKER Office Visit [facility] Medicine Surgery [address] [place] [address] [address] [place] [phone] Severe aortic stenosis (Primary Dx) 06/02/2025 2:00 PM CHUTE WORKER Office Visit [facility] Cardiology [address] [place] [address] Medical Office Building [address] [place] [phone] Severe aortic stenosis (Primary Dx); History of heart valve abnormality; Abnormal finding of blood chemistry, unspecified 06/02/2025 Telephone [facility] Medicine Cardiology [facility] Medicine 8th [place] [address] [place] [address] Kelly Parks RN 05/27/2025 Documentation Cardiology Marti Beach RN 05/27/2025 Documentation [facility] Medicine Scheduling [address] [place] [address] [facility] DOC 05/27/2025 Telephone [facility] Cardiology [facility] Medicine 8th [place] [address] [place] [address] Nicolas Archer MD 05/24/2025 Documentation Cardiology Marti Beach, ZAY 05/18/2025 11:59 PM CHUTE WORKER Anesthesia Event [facility] Cardiac Catheterization Lab [address] [place] [address] Yasmin Galvin MD 05/17/2025 Orders Only [facility] Cardiac Catheterization Lab [address] [place] [address] Keith Montgomery MD Severe aortic stenosis (Primary Dx) 05/13/2025 8:00 AM CHUTE WORKER Anesthesia Event [facility] Cardiac Catheterization Lab [address] [place] [address] Saima Michel DO Barnhart, Lynlee Jo, NP 05/13/2025 5:48 AM CHUTE WORKER - 05/13/2025 12:12 PM CHUTE WORKER Hospital Encounter [facility] Cardiac Catheterization Lab [address] [place] [address] Keith Montgomery MD Severe aortic stenosis Discharge Disposition: Discharge to home or self care 05/10/2025 1:50 PM CHUTE WORKER - 05/10/2025 11:59 PM CHUTE WORKER Hospital Encounter [facility] Diagnostic Imaging [address] [place] [address] Keith Montgomery MD Discharge Disposition: Discharge to home or self care 05/10/2025 1:15 PM CHUTE WORKER Pre-Admission Testing [facility] Pre Anesthesia Testing [address] [place] [address] 04/22/2025 Orders Only [facility] Cardiac Catheterization Lab [address] [place] [address] Keith Montgomery MD Severe aortic stenosis (Primary Dx) 04/13/2025 3:30 PM CDT Office Visit [facility] Medicine Surgery [address] [facility] [address] [place] [phone] Tru Osorio MD Nonrheumatic aortic valve stenosis (Primary Dx) 04/13/2025 Documentation Cardiothoracic Surgery Marti Beach RN from Last 3 Months Immunizations Immunization Administration Dates Next Due Influenza, Trivalent, High D ose, Split, Preservative Free, Intramuscular 06/15/2025 Surgical History Surgery Date Site/Laterality Comments CHOLECYSTECTOMY TUBAL LIGATION CARDIAC CATHETERIZATION 03/22/2025 N/A Procedure: LEFT HEART CATHETERIZATION WITH CORONARY ANGIOGRAPHY AND WITH OR WITHOUT LEFT VENTRICULOGRAM [id number]; Surgeon: Keith Montgomery MD; Location: [facility]; Service: Cardiovascular; Laterality: N/A; CARDIAC CATHETERIZATION 03/22/2025 N/A Procedure: ULTRASOUND GUIDANCE FOR VASCULAR ACCESS S&I [id number]; Surgeon: Keith Montgomery MD; Location: [facility]; Service: Cardiovascular; Laterality: N/A; CARDIAC CATHETERIZATION 06/14/2025 Chest/N/A Procedure: TAVR - PERCUTANEOUS FEMORAL [id number]; Surgeon: Nicolas Archer MD; Location: [facility] EP LAB; Service: Cardiovascular; Laterality: N/A; second case 0900 arrival Medical devices from this surgery are in the Medical Devices section. Medical History Medical History Date Comments Diabetes mellitus Thyroid disease Dementia (HCC) Bipolar disorder Stroke (HCC) Nonrheumatic aortic (valve) stenosis Heart murmur Arthritis PONV (postoperative nausea and vomiting) Hypertension Hyperlipidemia Hypertensive urgency Aortic valvar stenosis Type 2 diabetes mellitus Hyponatremia UGI bleed N&V (nausea and vomiting) GERD (gastroesophageal reflux disease) DWAYNE (acute kidney injury) Hypophosphatemia Hypomagnesemia Hyperlactatemia Acute hyponatremia Normocytic normochromic anemia Depression Schizoaffective disorder (HCC) Slurred speech Altered mental status, unspecified altered menta l status type Acute hypoxic respiratory failure (HCC) SOB (shortness of breath) Irritable bowel syndrome Hypothyroidism History of transfusion Family History Medical History Relation Name Comments Heart attack Brother Melanoma Father Kidney cancer Mother Anesthesia problems Neg Hx Malig Hyperthermia Neg Hx Pseudochol deficiency Neg Hx Relation Name Status Comments Brother Father Mother Social History Tobacco Use Types Packs/Day Years Used Date Smoking Tobacco: Never Passive Smoke Exposure: Past Smokeless Tobacco: Never Tobacco Cessation:Counseling Given: Not Answered Alcohol Use Standard Drinks/Week Comments Not Currently 0 (1 standard drink = 0.6 oz pur e alcohol) Social Connection and Isolation Panel Answer Date Recorded In a typical week, how many times do you talk on the phone with family, friends, or neighbors? More than three times a week 09/28/2024 How often do you get togethe r with friends or relatives? More than three times a week 09/28/2024 How often do you attend [facility] or baptist services? Never 09/28/2024 Do you belong to any clubs o r organizations such as judaism groups, unions, fraternal or athletic groups, or [...] PHQ-2 Answer Date Recorded PHQ-2 Total Score 0 06/15/2025 PRAPARE - Transportation Answer Date Re corded [...] any time in the past 12 m [facility], were you homeless or living in a detention (including now)? No 09/28/2024 Social Connection and Isolation Panel Answer Date Recorded In a typical week, how many times do you talk on the phone with family, friends, or neighbors? Patient unable to answer 06/15/2025 How often do you get togethe r with friends or relatives? Patient unable to answer 06/15/2025 How often do you attend chur or baptist services? Patient unable to answer 06/15/2025 Do you belong to any clubs o r organizations such as judaism groups, unions, fraternal or athletic groups, or school groups? Patient unable to answer 06/15/2025 How often do you attend meet ings of the clubs or organizations you belong to? Patient unable to answer 06/15/2025 Are you , , di vorced, , never , or living with a partner? Patient unable to answer 06/15/2025 AUDIT-C Answer Date Recorded Q1: How often do you have a drink containing alcohol? Never 06/14/2025 Q2: How many drinks containi ng alcohol do you have on a typical day when you are drinking? Patient does not drink Q3: How often do you have si x or more drinks on one occasion? Never 06/14/2025 Overall Financial Resource Strain (CARDIA) Answe r Date Recorded How hard is it for you to pa y for the very basics like food, housing, medical care, and heating? Patient unable to answer 06/15/2025 Hunger Vital Sign Answer Date Recorded Within the past 12 months, y ou worried that your food would run out before you got the money to buy more. Patient unable to answer 06/15/2025 Within the past 12 months, t he food you bought just didn't last and you didn't have money to get more. Patient unable to answer 06/15/2025 PRAPARE - Transportation Answer Date Re corded In the past 12 months, has l ack of transportation kept you from medical appointments or from getting medications? Patient unable to answer 06/15/2025 In the past 12 months, has l ack of transportation kept you from meetings, work, or from getting things needed for daily living? Patient unable to answer 06/15/2025 Housing Stability Vital Sign Answer Prince e Recorded In the last 12 months, was t here a time when you were not able to pay the mortgage or rent on time? Patient unable to answer 06/15/2025 In the past 12 months, how m any times have you moved where you were living? 0 06/15/2025 At any time in the past 12 m [facility], were you homeless or living in a detention (including now)? Patient unable to answer 06/15/2025 [facility] Utilities Answer Date Recorded In the past 12 months has [facility] [employer], gas, oil, or water [employer] threatened to shut off services in your home? Patient unable to answer 06/15/2025 Personal Safety Answer Date Recorded Have you ever been in or are you currently in a harmful physical or emotional relationship or is someone making you feel afraid or unsafe? Denies 06/14/2025 Comments No Sex and Gender Information Value Date Recorded Sex Assigned at Not on file Legal Sex Female 8:51 PM CHUTE WORKER Gender Identity Not on file Sexual Orientation Not on file Last Filed Vital Signs Vital Sign Reading Time Taken Comments Blood Pressure 143/67 06/15/2025 2:00 PM CHUTE WORKER Pulse 90 06/15/2025 2:00 PM CHUTE WORKER Temperature 37.2 C (99 F) 06/15/2025 1:00 PM CHUTE WORKER Respiratory Rate 29 06/15/2025 2:00 PM CHUTE WORKER Oxygen Saturation 94% 06/15/2025 2:00 PM CHUTE WORKER Inhaled Oxygen Concentration - - Weight 90.4 kg (199 lb 3.2 oz) 06/15/2025 6:00 A M CHUTE WORKER Height 162.6 cm (5' 4.02) 06/14/2025 3:25 PM CS T Body Mass Index 34.18 06/14/2025 3:25 PM CHUTE WORKER Plan of Treatment Health Maintenance Due Date Last Done Comments Albumin Creatinine Ratio, Urine 1945 Hepatitis C Screening 1945 Osteoporosis Screening-Bone Density Scan 1945 Dilated Eye Exam 1947 Foot Exam 1945 DTaP/Tdap/Td Vaccine (1 - Tdap) 1958 Hepatitis B Screening 1965 Pneumococcal vaccine 65+ (1 of 2 - PCV) 1966 Zoster Vaccine (1 of 2) 1997 Well Visit 65+ 02/15/2012 Lipid Panel 06/21/2025 06/21/2024, 11/06, 06/17/2019, Additional history exists Hemoglobin A1C 11/30/2025 06/02/2025, 09/06, 06/21/2024, Additional history exists Depression Screening 05/27/2026 05/27/2025, 10/13/2024, 10/13/2024, Additional history exists eGFR 06/14/2026 06/14/2025, 1202/2025, 06/02/2025, Additional history exists Fall Risk Assessment 06/15/2026 06/15/2025 Colon Cancer Screening-FIT Discontinued 09/27/2018 Colon Cancer Screening-FOBT Discontinued 09/27/2018 Colorectal Cancer Screening Discontinued Influenza Vaccine Completed 06/15/2025, 08/29/2013 Colon Cancer Screening-CT Colonography Discontinued Colon Cancer Screening-Colonoscopy Discontinued Colon Cancer Screening-DNA Stool Discontinued Colon Cancer Screening-Sigmoidoscopy Discontinued Medical Devices Implanted Type Area [employer] Device Identifier Shelf Expiration Date Model / Serial / Lot Murfie Valve Heart 23mm Daxa 3 Transcatheter [id number] - [id number] - [id number] Implanted:Qty: 1 on 06/14/2025 by Nicolas Archer MD at [facility] Prosthetic Valve N/A: Aorta Doming[employer] 11/06/2027 [id number] / [id number] / [id number] [employer] V[employer] System Closure Repair Femoral Artery Suture Mediated Perclose Prostyle 47045-20 - [id number] - [id number] Implanted:Qty: 1 on 06/14/2025 by Nicolas Archer MD at [facility] Vascular Closure Device Right: Common Femoral Artery [employer] 04/06/2027 [id number] / [id number] / [id number] Procedures Procedure Name Priority Date/Time Associated Diagnosis Comments XR CHEST 1 VIEW ED Urgent/IP Urgent 06/15/2025 1:17 PM CHUTE WORKER XR NECK SOFT TISSUE ED Urgent/IP Urgent 06/15/2025 1:16 PM CHUTE WORKER POCT GLUCOSE DEVICE Routine 06/15/2025 1 1:32 AM CHUTE WORKER TRANSTHORACIC ECHO (TTE) COMPLETE W DOPPLER/CF W CONTRAST Pending Discharge 06/15/2025 8:57 AM CHUTE WORKER POCT GLUCOSE DEVICE Routine 06/15/2025 7 :36 AM CHUTE WORKER ECG 12-LEAD Routine 06/15/2025 6:55 AM CHUTE WORKER EGFR Routine 06/14/2025 9:16 PM CHUTE WORKER CBC WITHOUT DIFFERENTIAL Routine 06/14/2025 9:16 PM CHUTE WORKER BASIC METABOLIC PANEL Routine 06/14/2025 9:16 PM CHUTE WORKER TYPE AND SCREEN STAT 06/14/2025 9:16 PM CHUTE WORKER INFECTION PREVENTION SINCERE AURIS PCR, SURVEILLANCE Routine 06/14/2025 9:16 PM CHUTE WORKER POCT GLUCOSE DEVICE Routine 06/14/2025 8 :25 PM CHUTE WORKER POCT GLUCOSE DEVICE Routine 06/14/2025 5 :41 PM CHUTE WORKER POCT GLUCOSE DEVICE Routine 06/14/2025 1 0:52 AM CHUTE WORKER EGFR Routine 06/14/2025 10:43 AM CHUTE WORKER DIFFERENTIAL AUTO Routine 06/14/2025 10: 43 AM CHUTE WORKER APTT Routine 06/14/2025 10:43 AM CHUTE WORKER PROTIME-INR Routine 06/14/2025 10:43 AM CHUTE WORKER CBC WITH AUTO DIFFERENTIAL Routine 06/14/2025 10:43 AM CHUTE WORKER COMPREHENSIVE METABOLIC PANEL Routine 06/14/2025 10:43 AM CHUTE WORKER MAGNESIUM Routine 06/14/2025 10:43 AM CHUTE WORKER ECG 12-LEAD STAT 06/14/2025 10:38 AM CHUTE WORKER TRANSCATHETER AORTIC VALVE REPLACEMENT (TAVR) OPEN FEMORAL ART APPROACH Routine 06/14/2025 10:20 AM CHUTE WORKER Severe aortic stenosis Encounter for examination for normal comparison and control in clinical research program TRANSTHORACIC ECHO (TTE) LIMITED/FOLLOW UP W LTD DOPPLER/CF WO CONTRAST Routine 06/14/2025 10:20 AM CHUTE WORKER POCT GLUCOSE DEVICE Routine 06/14/2025 1 0:19 AM CHUTE WORKER POCT ACTIVATED CLOTTING TIME, LOW RANGE Routine 06/14/2025 10:16 AM CHUTE WORKER POCT ACTIVATED CLOTTING TIME, LOW RANGE Routine 06/14/2025 9:41 AM CHUTE WORKER ANESTHESIA INTUBATION Routine 06/14/2025 9:20 AM CHUTE WORKER POCT GLUCOSE DEVICE Routine 06/14/2025 7 :15 AM CHUTE WORKER PREPARE RBC Timed 06/14/2025 6:37 AM CHUTE WORKER EGFR Routine 06/02/2025 4:39 PM CHUTE WORKER Severe aortic stenosis DIFFERENTIAL AUTO Routine 06/02/2025 4:3 9 PM CHUTE WORKER Severe aortic stenosis TYPE AND SCREEN 14 DAY Routine 06/02/2025 4:39 PM CHUTE WORKER Preoperative testing PRO B-TYPE NATRIURETIC PEPTIDE Routine 06/02/2025 4:39 PM CHUTE WORKER Severe aortic stenosis COMPREHENSIVE METABOLIC PANEL Routine 06/02/2025 4:39 PM CHUTE WORKER Severe aortic stenosis CBC WITH AUTO DIFFERENTIAL Routine 06/02/2025 4:39 PM CHUTE WORKER Severe aortic stenosis LIPOPROTEIN A (LPA) Routine 06/02/2025 4 :39 PM CHUTE WORKER Severe aortic stenosis History of heart valve abnormality HEMOGLOBIN A1C Routine 06/02/2025 4:39 PM CHUTE WORKER Severe aortic stenosis Abnormal finding of blood chemistry, unspecified PROTIME-INR Routine 06/02/2025 4:39 PM CHUTE WORKER Severe aortic stenosis CRP, HIGH SENSITIVITY Routine 06/02/2025 4:39 PM CHUTE WORKER Severe aortic stenosis APTT Routine 06/02/2025 4:39 PM CHUTE WORKER Preoperative testing Bruising B CHECK SAMPLE STAT 05/13/2025 7:30 AM CHUTE WORKER POTASSIUM, WHOLE BLOOD STAT 05/13/2025 7:07 AM CHUTE WORKER POCT GLUCOSE DEVICE Routine 05/13/2025 6 :38 AM CHUTE WORKER PREPARE RBC STAT 05/13/2025 6:35 AM CHUTE WORKER ECG 12-LEAD Routine 05/10/2025 2:30 PM CHUTE WORKER XR CHEST PA LATERAL 2 VIEWS IP Routine 05/10/2025 2:04 PM CHUTE WORKER EGFR Routine 05/10/2025 1:49 PM CHUTE WORKER DIFFERENTIAL AUTO Routine 05/10/2025 1:4 9 PM CHUTE WORKER TYPE AND SCREEN Timed 05/10/2025 1:49 PM CHUTE WORKER PROTIME-INR Routine 05/10/2025 1:49 PM CHUTE WORKER PRO B-TYPE NATRIURETIC PEPTIDE Routine 05/10/2025 1:49 PM CHUTE WORKER COMPREHENSIVE METABOLIC PANEL Routine 05/10/2025 1:49 PM CHUTE WORKER CBC WITH AUTO DIFFERENTIAL Routine 05/10/2025 1:49 PM CHUTE WORKER APTT Routine 05/10/2025 1:49 PM CHUTE WORKER LIPID PANEL Routine 06/21/2024 2:30 AM CHUTE WORKER OCCULT BLOOD, FECAL (FIT) Routine 09/27/2018 2:03 PM CDT from Last 3 Months or Most Recently Relevant to Health Maintenance Results * XR Chest 1 View (06/15/2025 1:17 PM CHUTE WORKER) Anatomical Region Laterality Modality Body, Chest N/A Digital Radiogra phy 06/15/2025 2:21 PM CHUTE WORKER Impressions 06/15/2025 3:51 PM CHUTE WORKER The current study is compared with the prior radiograph dated 05/10/2025. Post surgical changes of transcatheter aortic valve replacement. Small lung volumes with associated atelectasis. Trace left pleural effusion. No pneumothorax or consolidation. Cardiomediastinal silhouette is stable. Dictated by: Maria Isabel Collins M.D. The radiology attending physician has personally reviewed this study, and had reviewed and/or edited this written report and agrees with it. Electronically signed by: Jarocho Palencia M.D. Narrative 06/15/2025 3:51 PM CHUTE WORKER EXAMINATION: 1 view chest radiograph Procedure Note Jarocho Palencia MD - 06/15/2025 EXAMINATION: 1 view chest radiograph IMPRESSION: The current study is compared with the prior radiograph dated 05/10/2025. Post surgical changes of transcatheter aortic valve replacement. Small lung volumes with associated atelectasis. Trace left pleural effusion. No pneumothorax or consolidation. Cardiomediastinal silhouette is stable. Dictated by: Maria Isabel Collins M.D. The radiology attending physician has personally reviewed this study, and had reviewed and/or edited this written report and agrees with it. Electronically signed by: Jarocho Palencia M.D. Nighat Dudley NP IMG XR PROCEDURES Final Res ult * XR Neck Soft Tissue (06/15/2025 1:16 PM CHUTE WORKER) Anatomical Region Laterality Modality Head and Neck N/A Digital Radiogra phy 06/15/2025 1:43 PM CHUTE WORKER Impressions 06/15/2025 2:11 PM CHUTE WORKER 1. No radiopaque retained foreign body in the neck. Dictated by: Garrett Merritt M.D. The radiology attending physician has personally reviewed this study, and had reviewed and/or edited this written report and agrees with it. Electronically signed by: Panchito Kaye MD Narrative 06/15/2025 2:11 PM CHUTE WORKER EXAMINATION: XR NECK SOFT TISSUE HISTORY: shortness of breath, s/p TAVR, use of LMA during TAVR yesterday, pt c/o something stuck in throat , nothing visualized on exam COMPARISON: No prior images are available for comparison. FINDINGS: 2 radiographs of the neck and surrounding soft tissues are submitted for interpretation. No acute fracture or dislocation. There is no radiopaque retained foreign body. Multilevel moderate to severe degenerative disc disease of the cervical spine, worst at C4-C7. Calcified thyroid and cricoid cartilage. Procedure Note Panchito Kaye MD - 06/15/2025 EXAMINATION: XR NECK SOFT TISSUE HISTORY: shortness of breath, s/p TAVR, use of LMA during TAVR yesterday, pt c/o something stuck in throat , nothing visualized on exam COMPARISON: No prior images are available for comparison. FINDINGS: 2 radiographs of the neck and surrounding soft tissues are submitted for interpretation. No acute fracture or dislocation. There is no radiopaque retained foreign body. Multilevel moderate to severe degenerative disc disease of the cervical spine, worst at C4-C7. Calcified thyroid and cricoid cartilage. IMPRESSION: 1. No radiopaque retained foreign body in the neck. Dictated by: Garrett Merritt M.D. The radiology attending physician has personally reviewed this study, and had reviewed and/or edited this written report and agrees with it. Electronically signed by: Panchito Kaye MD us Nighat Dudley CYTOLOGY TEACHER IMG XR PROCEDURES Final Res ult * (ABNORMAL) POCT glucose (06/15/2025 11:32 AM CHUTE WORKER) Glucose, POC 273(H) 70 - 199 mg/dL Blood 06/15/2025 11:3 2 AM CHUTE WORKER 06/15/2025 11:32 AM CHUTE WORKER us Citlali Ruffin MD LAB POCT ORDERABLES - DEVICE Fin al Result [facility] One [facility] Department [place] [address] * TRANSTHORACIC ECHO (TTE) COMPLETE W DOPPLER/CF W CONTRAST (06/15/2025 8:57 AM CHUTE WORKER) EF Mod BP 68 % CONS SCIMAGE Anatomical Region Laterality Modality Ultrasound 06/15/2025 7:53 AM CHUTE WORKER Narrative 06/15/2025 10:23 AM CHUTE WORKER [facility] [place] [address] Transthoracic Echocardiographic Report Patient Name: ISABEL ROGER J : 1945 (80y 3m) Sex: F Study Date: 06/15/2025 07:53:53 Ht(Inch): 64 Wt(Lb): 199.08 BSA: 1.95 Pouncing Lathe Operator: Anat Cintron RDCS Location: [id number] Order Provider: NIGHAT DUDLEY Heart Rate: 79 BMI: 34.17 BP: 123 / 51 Ref Provider: NIGHAT DUDLEY PROCEDURES: Echocardiographic Report: Transthoracic complete echo with contrast, 2D, spectral and tissue Doppler, color flow Doppler, M-mode. Contrast: Contrast Enhancement was Employed: Due to suboptimal image quality with inadequate visualization of at least 2 of 16 LV wall segments in any view after initial imaging. Perflutren contrast was administered using the volume necessary to obtain adequate images. 0.8 ml Optison Administered, (2.2 ml wasted). Technically difficult study due to: Poor acoustic windows. INDICATIONS: POST TAVR. CONCLUSIONS: 1. Normal left ventricular cavity size based on volume index. Concentric LV remodeling. Normal left ventricular systolic function. The Ejection Fraction (Lewis's) is measured at 68 %. Grade II diastolic dysfunction (elevated mean LA pressure). 2. Resting Segmental Wall Motion Analysis: Total wall motion score is 1.00. There are no regional wall motion abnormalities. 3. Right ventricular dilatation. Normal right ventricular systolic function. 4. A normally functioning bioprosthetic stent-valve is present in the aortic position. No paravalvular aortic regurgitation. 5. Mild tricuspid regurgitation. ATTESTATION: I have personally reviewed and interpreted this study without fellow or resident. DISCLAIMER: The study images and the final report will be retained in the patient chart by the Echo Laboratory for the legally required time period. This chart constitutes the legal record of any testing performed. FINDINGS: Left Ventricle: Normal left ventricular cavity size based on volume index. Concentric LV remodeling. Normal left ventricular systolic function. The Ejection Fraction (Lewis's) is measured at 68 %. Grade II diastolic dysfunction (elevated mean LA pressure). No left ventricular thrombus visualized. Resting Segmental Wall Motion Analysis: Total wall motion score is 1.00. There are no regional wall motion abnormalities. Right Ventricle: Right ventricular dilatation. Normal right ventricular systolic function. Left Atrium: The left atrium is normal in size. Right Atrium: The right atrium is normal in size. Mitral Valve: Mitral annular calcification is present. No mitral regurgitation. No stenosis present. The mitral valve area by pressure half-time is 2.7 cm2. The mean transmitral gradient is: 2 mmHg. Aortic Valve: Mild aortic valve stenosis. The mean transaortic gradient is 17 mmHg. The aortic valve area by the continuity equation (using VTI) is 2.1 cm2. Aortic valve dimensionless index is 0.62. A bioprosthetic stent-valve is present in the aortic position. The aortic valve prosthesis appears well seated. The aortic prosthesis demonstrates normal leaflet motion. No paravalvular aortic regurgitation. Tricuspid Valve: Normal tricuspid valve structure. Mild tricuspid regurgitation. No tricuspid valve stenosis. Pulmonic Valve: Normal pulmonic valve structure. No pulmonic regurgitation. No pulmonic valve stenosis present. Pericardium: The pericardium is not well visualized due to poor acoustic windows. Aorta: The ascending aorta is normal in size when indexed. IVC: IVC not well-visualized due to poor acoustic windows. PASP: Estimated pulmonary artery systolic pressure is consistent with mild pulmonary hypertension (35-50mmHg). Rhythm: Normal Sinus rhythm was seen during the study. MEASUREMENTS: 2D/MM Value Range Doppler Value Range LVIDd 2D 3.2 cm [ 3.8 - 5.2 ] AV Peak David 2.8 m/s [ 1.0 - 1.7 ] LVIDs 2D 2.0 cm [ 2.2 - 3.5 ] AV Peak PG 31 mmHg IVSd 2D 1.3 cm [ 0.6 - 0.9 ] AV Mean PG 17 mmHg LVPWd 2D 1.0 cm [ 0.6 - 0.9 ] AV VTI 55 cm LV Thickness Ratio 1.3 LVOT Peak David 1.8 m/s [ 0.7 - 1.1 ] LV Mass 2D 112.81 g LVOT Peak PG 13 mmHg LV Mass Index 2D 57.79 g/m2 LVOT Mean PG 7 mmHg RWT 0.62 LVOT VTI 34 cm EDV Mod BP 90 ml [ 46 - 106 ] LVOT Diam 2.1 cm LV EDV Index 46 ml/m2 RUFINA VTI 2.1 cm2 ESV Mod BP 29 ml [ 14 - 42 ] LVOT/AV VTI 0.62 - Dimensionless index (DVI) EF Mod BP 68 % [ 54 - 74 ] MV E Peak David 0.83 m/s [ 0.60 - 1.30 ] LA Length 4C 6.1 cm MV A Peak David 1.05 m/s [ 1.00 - 1.20 ] LA Length 2C 5.2 cm MV E/A 0.8 ratio [ 0.8 - 1.5 ] LA Volume BP 66 ml MV Peak David 1.1 m/s LA Volume Index 34 ml/m2 [ 16 - 34 ] MV Peak PG 5 mmHg RV Base Dimen 2D 4.3 cm [ 2.5 - 4.2 ] MV Mean PG 2 mmHg RV Mid Dimen 2D 3.4 cm MV VTI 29 cm RV ED Area 17 cm2 [ 8 - 20 ] MV PHT 82 msec [ 20 - 100 ] RV ES Area 10 cm2 [ 3 - 11 ] MVA PHT 2.7 cm2 RV FAC 44 % [ 35 - 63 ] MV Decel K[place] 297 TAPSE 2.3 cm [ 1.7 - 5.0 ] MV Decel Time 280 msec [ 104 - 258 ] RA Volume 27 ml Med E` David 4.0 cm/sec [ 8.0 - 25.0 ] RA Volume Index 14 ml/m2 Lat E` David 6.4 cm/sec [ 10.0 - 25.0 ] IVC Diam 1.0 cm Average E/E` 16 Asc Ao Diam 2D 3.0 cm RV S` 17.4 cm/sec Asc Ao Index 1.5 cm/m2 TR Peak David 3.1 m/s [ 1.0 - 2.8 ] TR Peak PG 38 mmHg PV Peak David 1.1 m/s [ 0.4 - 0.8 ] PV Peak PG 5 mmHg Electronically Signed By: Orlando Dobson MD 06/15/2025 10:22:27 CHUTE WORKER Wall Motion Analysis - Resting Procedure Note Orlando Dobson MD - 06/15/2025 [facility] [place] [address] Transthoracic Echocardiographic Report Patient Name: ISABEL ROGER J : 1945 (80y 3m) Sex: F Study Date: 06/15/2025 07:53:53 Ht(Inch): 64 Wt(Lb): 199.08 BSA: 1.95 Pouncing Lathe Operator: Anat Cintron RDCS Location: [id number] Order Provider:NIGHAT DUDLEY Heart Rate: 79 BMI: 34.17 BP: 123 / 51 Ref Provider: NIGHAT DUDLEY PROCEDURES: Echocardiographic Report: Transthoracic complete echo with contrast, 2D,spectral and tissue Doppler, color flow Doppler, M-mode. Contrast: Contrast Enhancement was Employed: Due to suboptimal imagequality with inadequate visualization of at least 2 of 16 LV wall segments in any viewafter initial imaging. Perflutren contrast was administered using the volume necessaryto obtain adequate images. 0.8 ml Optison Administered, (2.2 ml wasted). Technically difficult study due to: Poor acoustic windows. INDICATIONS: POST TAVR. CONCLUSIONS: 1. Normal left ventricular cavity size based on volume index. ConcentricLV remodeling. Normal left ventricular systolic function. The Ejection Fraction(Lewis's) is measured at 68 %. Grade II diastolic dysfunction (elevated mean LA pressure). 2. Resting Segmental Wall Motion Analysis: Total wall motion score is1.00. There are no regional wall motion abnormalities. 3. Right ventricular dilatation. Normal right ventricular systolicfunction. 4. A normally functioning bioprosthetic stent-valve is present in theaortic position. No paravalvular aortic regurgitation. 5. Mild tricuspid regurgitation. ATTESTATION: I have personally reviewed and interpreted this study without fellow orresident. DISCLAIMER: The study images and the final report will be retained in the patientchart by the Echo Laboratory for the legally required time period. This chart constitutesthe legal record of any testing performed. FINDINGS: Left Ventricle: Normal left ventricular cavity size based on volume index.Concentric LV remodeling. Normal left ventricular systolic function. The EjectionFraction (Lewis's) is measured at 68 %. Grade II diastolic dysfunction (elevated mean LApressure). No left ventricular thrombus visualized. Resting Segmental Wall Motion Analysis: Total wall motion score is 1.00.There are no regional wall motion abnormalities. Right Ventricle: Right ventricular dilatation. Normal right ventricularsystolic function. Left Atrium: The left atrium is normal in size. Right Atrium: The right atrium is normal in size. Mitral Valve: Mitral annular calcification is present. No mitralregurgitation. No stenosis present. The mitral valve area by pressure half-time is 2.7 cm2.The mean transmitral gradient is: 2 mmHg. Aortic Valve: Mild aortic valve stenosis. The mean transaortic gradient is17 mmHg. The aortic valve area by the continuity equation (using VTI) is 2.1 cm2.Aortic valve dimensionless index is 0.62. A bioprosthetic stent-valve is present in theaortic position. The aortic valve prosthesis appears well seated. The aorticprosthesis demonstrates normal leaflet motion. No paravalvular aorticregurgitation. Tricuspid Valve: Normal tricuspid valve structure. Mild tricuspidregurgitation. No tricuspid valve stenosis. Pulmonic Valve: Normal pulmonic valve structure. No pulmonicregurgitation. No pulmonic valve stenosis present. Pericardium: The pericardium is not well visualized due to poor acousticwindows. Aorta: The ascending aorta is normal in size when indexed. IVC: IVC not well-visualized due to poor acoustic windows. PASP: Estimated pulmonary artery systolic pressure is consistent with mildpulmonary hypertension (35-50mmHg). Rhythm: Normal Sinus rhythm was seen during the study. MEASUREMENTS: 2D/MM Value Range DopplerValue Range LVIDd 2D 3.2 cm [ 3.8 - 5.2 ] AV Peak David 2.8m/s [ 1.0 - 1.7 ] LVIDs 2D 2.0 cm [ 2.2 - 3.5 ] AV Peak PG 31mmHg IVSd 2D 1.3 cm [ 0.6 - 0.9 ] AV Mean PG 17mmHg LVPWd 2D 1.0 cm [ 0.6 - 0.9 ] AV VTI 55cm LV Thickness Ratio 1.3 LVOT Peak David 1.8m/s [ 0.7 - 1.1 ] LV Mass 2D 112.81 g LVOT Peak PG 13mmHg LV Mass Index 2D 57.79 g/m2 LVOT Mean PG 7mmHg RWT 0.62 LVOT VTI 34cm EDV Mod BP 90 ml [ 46 - 106 ] LVOT Diam 2.1cm LV EDV Index 46 ml/m2 RUFINA VTI 2.1cm2 ESV Mod BP 29 ml [ 14 - 42 ] LVOT/AV VTI0.62 - Dimensionless index (DVI) EF Mod BP 68 % [ 54 - 74 ] MV E Peak Vel0.83 m/s [ 0.60 - 1.30 ] LA Length 4C 6.1 cm MV A Peak Vel1.05 m/s [ 1.00 - 1.20 ] LA Length 2C 5.2 cm MV E/A 0.8ratio [ 0.8 - 1.5 ] LA Volume BP 66 ml MV Peak David 1.1m/s LA Volume Index 34 ml/m2 [ 16 - 34 ] MV Peak PG 5mmHg RV Base Dimen 2D 4.3 cm [ 2.5 - 4.2 ] MV Mean PG 2mmHg RV Mid Dimen 2D 3.4 cm MV VTI 29cm RV ED Area 17 cm2 [ 8 - 20 ] MV PHT 82msec [ 20 - 100 ] RV ES Area 10 cm2 [ 3 - 11 ] MVA PHT 2.7cm2 RV FAC 44 % [ 35 - 63 ] MV Decel [id number] TAPSE 2.3 cm [ 1.7 - 5.0 ] MV Decel Time 280msec [ 104 - 258 ] RA Volume 27 ml Med E` David 4.0cm/sec [ 8.0 - 25.0 ] RA Volume Index 14 ml/m2 Lat E` David 6.4cm/sec [ 10.0 - 25.0 ] IVC Diam 1.0 cm Average E/E`16 Asc Ao Diam 2D 3.0 cm RV S`17.4 cm/sec Asc Ao Index 1.5 cm/m2 TR Peak David 3.1m/s [ 1.0 - 2.8 ] TR Peak PG 38 mmHg PV Peak David 1.1 m/s [ 0.4 - 0.8 ] PV Peak PG 5 mmHg Electronically Signed By: Orlando Dobson MD 06/15/2025 10:22:27 CHUTE WORKER Wall Motion Analysis - Resting us Nighat Dudley NP CV ECHO PROCEDURES Final Re sult * (ABNORMAL) POCT glucose (06/15/2025 7:36 AM CHUTE WORKER) [facility] Glucose, POC 221(H) 70 - 199 mg/dL Blood 06/15/2025 7:36 AM CHUTE WORKER 06/15/2025 7:36 AM CHUTE WORKER us Citlali Ruffin MD LAB POCT ORDERABLES - DEVICE Fin al Result Performing Organization Address City/State/[facility] Co de Phone Number [facility] One [facility] Department [place] [address] * ECG 12 lead (06/15/2025 6:55 AM CHUTE WORKER) [facility] Ventricular Rate EKG/Min 90 BPM [facility] Atrial Rate 90 BPM [facility] MT-Interval (MSEC) 154 ms [facility] QRS-Interval (MSEC) 80 ms [facility] QT-Interval (MSEC) 366 ms [facility] QTc 447 ms [facility] P Lynd 19 degrees [facility] R Lynd -9 degrees [facility] T Lynd 22 degrees [facility] Diagnosis Normal sinus rhythm Left ventricular hypertrophy with repolarization abnormality ( R in aVL ) Low voltage left precordial leads: consider lead placement, pulmonary disease, pleural effusion, obesity. Abnormal ECG When compared with ECG of 14-JUN-2025 10:38, Left bundle branch block is no longer Present Confirmed by MATHIEU HUGGINS M.D ([id number]) on 06/15/2025 10:30:04 AM [facility] 06/15/2025 6:55 AM CHUTE WORKER 06/15/2025 10:30 AM CHUTE WORKER Nighat Dudley CYTOLOGY TEACHER ECG ORDERABLES Final Resul t [facility] * Infection Prevention Sincere auris PCR, surveillance Axilla/Groin (06/14/2025 9:16 PM CHUTE WORKER) [facility] Sincere auris DNA Not Detected Not Detected [facility] Comment: Interpretive Data Testing performed by [facility] Molecular Infectious Disease Laboratory using the [place] penny [id number] Sincere auris assay. This assay detects DNA from Sincere auris using Real-Time PCR. This assay is laboratory developed and is not cleared by the [facility] Food and Drug Administration. The performance characteristics have been verified by the [facility] Molecular Infectious Disease Laboratory. Axilla/Groin 06/14/2025 9:16 PM CHUTE WORKER 06/14/2025 10:59 PM CHUTE WORKER Alberto Willard MD LAB MICROBIOLOGY - GENERAL ORDER LORENA Final Result MABEL [facility] One [facility] Department [place] [address] [facility] * eGFR (06/14/2025 9:16 PM CHUTE WORKER) Pathologist [facility] eGFR 66 >=60 mL/min/1. 73 m2 Comment: Interpretive Data Reference Interval Normal >/= 90 mL/min/1.73m2 Mildly decreased* 60 - 89 mL/min/1.73m2 Mildly to moderately decreased 45 - 59 mL/min/1.73m2 Moderately to severely decreased 30 - 44 mL/min/1.73m2 Severely decreased 15 - 29 mL/min/1.73m2 Kidney Failure < 15 mL/min/1.73m2 *Relative to young adult level Estimated glomerular filtration rate is determined by the 2020 CKD-EPI equation recommended by the National Kidney Foundation (A Unifying Approach to GFR Estimation: Recommendations of the NKF-ASK Task Force on Reassessing the Inclusion of Race in Diagnosing Kidney Disease, JASN 202). The CKD-EPI equation should not be used for patients with unstable renal function and has not been validated in children and those over 70. Current interpretive data was last reviewed 2021. Blood 06/14/2025 9:16 PM CHUTE WORKER 06/14/2025 10:30 PM CHUTE WORKER us Nighat Dudley NP LAB BLOOD ORDERABLES Final Result [facility] One [facility] Department [place] [address] * (ABNORMAL) CBC without differential (06/14/2025 9:16 PM CHUTE WORKER) WBC 9.95(H) 3.80 - 9.90 K/cumm Hgb 11.9 11.9 - 15.5 g/dL [facility] Hct 36.6 35.6 - 45.5 % [facility] Plt 176 150 - 400 K/cumm [facility] MPV 10.5 9.1 - 12.3 fL [facility] RBC 3.87(L) 3.90 - 5.20 M/cumm [facility] MCV 94.6 81.3 - 96.4 fL [facility] MCH 30.7 27.1 - 33.3 pg [facility] MCHC 32.5 32.3 - 35.7 g/dL [facility] RDW CV 13.2 11.1 - 14.9 % [facility] RDW SD 45.3 35.7 - 48.1 fL [facility] NRBC abs 0.00 0.00 - 0.01 K/cumm [facility] Blood 06/14/2025 9:16 PM CHUTE WORKER 06/14/2025 10:30 PM CHUTE WORKER Nighat Dudley CYTOLOGY TEACHER LAB BLOOD ORDERABLES Final Result Performing Organization Address City/[facility]/ZIP Co de Phone Number [facility] [place] [address] * Type and screen (06/14/2025 9:16 PM CHUTE WORKER) [facility] Antonella, indirect Negative ABO Rh A Negative [facility] Blood 06/14/2025 9:16 PM CHUTE WORKER 06/14/2025 10:57 PM CHUTE WORKER Narrative [facility] - 06/14/2025 11:55 PM CHUTE WORKER Has the patient had Daratumumab or Isatuximab in the past 6 months?->Unknown Jami Ramirez CYTOLOGY TEACHER LAB BLOOD BANK CRYSTAL T ORDERABLES Final Result Performing Organization Address [facility] Co de Phone Number [facility] [place] [address] * (ABNORMAL) Basic metabolic panel (06/14/2025 9:16 PM CHUTE WORKER) [facility] Sodium 134(L) 135 - 145 mmol/L Potassium, pl 4.2 3.3 - 4.9 mmol/L [facility] Chloride 98 97 - 110 mmol/L [facility] CO2 23 22 - 32 mmol/L [facility] Anion gap 13 2 - 15 mmol/L [facility] BUN 11 6 - 25 mg/dL [facility] Creatinine 0.89 0.60 - 1.10 mg/dL [facility] Glucose 218(H) 70 - 199 mg/dL [facility] Comment: Interpretive Data Fasting glucose >/= 126 mg/dl is diagnostic for diabetes. Fasting is defined as no caloric intake for at least 8 hours. Fasting glucose between 100 mg/dl to 125 mg/dl is diagnostic of prediabetes. In a patient with classic symptoms of hyperglycemia or hyperglycemic crisis, a random glucose >/= 200 mg/dl is diagnostic for diabetes. In the absence of unequivocal hyperglycemia, results should be confirmed by repeat testing. The classification and Diagnosis of Diabetes Diabetes Care 2021; 46: S19-S40. Current interpretive data was last revised 2022. Calcium 8.9 8.5 - 10.3 mg/dL [facility] Blood 06/14/2025 9:16 PM CHUTE WORKER 06/14/2025 10:30 PM CHUTE WORKER us Nighat Dudley CYTOLOGY TEACHER LAB BLOOD ORDERABLES Final Result Performing Organization Address City/State/[facility] Co de Phone Number [facility] [place] [address] * POCT glucose (06/14/2025 8:25 PM CHUTE WORKER) Glucose, POC 196 70 - 199 mg/dL Blood 06/14/2025 8:25 PM CHUTE WORKER 06/14/2025 8:25 PM CHUTE WORKER us Citlali Ruffin MD LAB POCT ORDERABLES - DEVICE Fin al Result Performing Organization Address [facility] Co de Phone Number [facility] [place] [address] * (ABNORMAL) POCT glucose (06/14/2025 5:41 PM CHUTE WORKER) Glucose, POC 243(H) 70 - 199 mg/dL Blood 06/14/2025 5:41 PM CHUTE WORKER 06/14/2025 5:41 PM CHUTE WORKER Citlali Ruffin MD LAB POCT ORDERABLES - DEVICE Fin al Result Performing Organization Address [facility] Co de Phone Number [facility] [place] [address] * POCT glucose (06/14/2025 10:52 AM CHUTE WORKER) Glucose, POC 124 70 - 199 mg/dL Blood 06/14/2025 10:5 2 AM CHUTE WORKER 06/14/2025 10:52 AM CHUTE WORKER us Citlali Ruffin MD LAB POCT ORDERABLES - DEVICE Fin al Result Performing Organization Address [facility]/ZIP Co de Phone Number [facility] [place] [address] * eGFR (06/14/2025 10:43 AM CHUTE WORKER) eGFR 62 >=60 mL/min/1. 73 m2 Comment: Interpretive Data Reference Interval Normal >/= 90 mL/min/1.73m2 Mildly decreased* 60 - 89 mL/min/1.73m2 Mildly to moderately decreased 45 - 59 mL/min/1.73m2 Moderately to severely decreased 30 - 44 mL/min/1.73m2 Severely decreased 15 - 29 mL/min/1.73m2 Kidney Failure < 15 mL/min/1.73m2 *Relative to young adult level Estimated glomerular filtration rate is determined by the 2020 CKD-EPI equation recommended by the National Kidney Foundation (A Unifying Approach to GFR Estimation: Recommendations of the NKF-ASK Task Force on Reassessing the Inclusion of Race in Diagnosing Kidney Disease, JASN 2020). The CKD-EPI equation should not be used for patients with unstable renal function and has not been validated in children and those over 70. Current interpretive data was last reviewed 2021. Blood 06/14/2025 10:4 3 AM CHUTE WORKER 06/14/2025 11:07 AM CHUTE WORKER us Nighat Dudley NP LAB BLOOD ORDERABLES Final Result Performing Organization Address City/[facility]/ZIP Co de Phone Number [facility] [place] [address] * (ABNORMAL) Differential, auto (06/14/2025 10:43 AM CHUTE WORKER) Neutrophil abs 7.11(H) 1.50 - 6.50 K/cumm Imm gran abs 0.09 0.00 - 0.10 K/cumm [facility] Lymphocyte abs 3.51(H) 0.80 - 3.30 K/cumm [facility] Monocyte abs 0.71 0.20 - 0.80 K/cumm [facility] Eosinophil abs 0.48 0.00 - 0.50 K/cumm [facility] Basophil abs 0.06 0.00 - 0.10 K/cumm [facility] Neutrophil pct 59.5 % [facility] Comment: Interpretive Data Percent cell count reference ranges are not reported, since discordance with absolute values may lead to misinterpretation of CBC data. Current Interpretive Data was last revised on 2017. Imm gran pct 0.8 % [facility] Comment: Interpretive Data Percent cell count reference ranges are not reported, since discordance with absolute values may lead to misinterpretation of CBC data. Current Interpretive Data was last revised on 2017. Lymphocyte pct 29.3 % [facility] Comment: Interpretive Data Percent cell count reference ranges are not reported, since discordance with absolute values may lead to misinterpretation of CBC data. Current Interpretive Data was last revised on 2017. Monocyte pct 5.9 % [facility] Comment: Interpretive Data Percent cell count reference ranges are not reported, since discordance with absolute values may lead to misinterpretation of CBC data. Current Interpretive Data was last revised on 2017. Eosinophil pct 4.0 % [facility] Comment: Interpretive Data Percent cell count reference ranges are not reported, since discordance with absolute values may lead to misinterpretation of CBC data. Current Interpretive Data was last revised on 2017. Basophil pct 0.5 % [facility] Comment: Interpretive Data Percent cell count reference ranges are not reported, since discordance with absolute values may lead to misinterpretation of CBC data. Current Interpretive Data was last revised on 2017. Blood 06/14/2025 10:4 3 AM CHUTE WORKER 06/14/2025 11:07 AM CHUTE WORKER us Nighat Dudley NP LAB BLOOD ORDERABLES Final Result [facility] Department [place] [address] * (ABNORMAL) CBC with auto differential (06/14/2025 10:43 AM CHUTE WORKER) [facility] WBC 11.96(H) 3.80 - 9.90 K/cumm Hgb 11.5(L) 11.9 - 15.5 g/dL [facility] Hct 34.0(L) 35.6 - 45.5 % [facility] Plt 194 150 - 400 K/cumm [facility] MPV 9.9 9.1 - 12.3 fL [facility] RBC 3.68(L) 3.90 - 5.20 M/cumm [facility] MCV 92.4 81.3 - 96.4 fL [facility] MCH 31.3 27.1 - 33.3 pg [facility] MCHC 33.8 32.3 - 35.7 g/dL [facility] RDW CV 13.2 11.1 - 14.9 % [facility] RDW SD 45.2 35.7 - 48.1 fL [facility] NRBC abs 0.00 0.00 - 0.01 K/cumm [facility] Blood 06/14/2025 10:4 3 AM CHUTE WORKER 06/14/2025 11:07 AM CHUTE WORKER us Nighat Dudley NP LAB BLOOD ORDERABLES Final Result [facility] Department [place] [address] * aPTT (06/14/2025 10:43 AM CHUTE WORKER) [facility] aPTT 34 26 - 38 sec Comment: Interpretive Data Heparin therapeutic range: 66.0 - 100.0 seconds. Range based on correlation with therapeutic heparin activity range of 0.3 - 0.7 Units/mL. Blood 06/14/2025 10:4 3 AM CHUTE WORKER 06/14/2025 11:07 AM CHUTE WORKER Nighat Dudley NP LAB BLOOD ORDERABLES Final Result [facility] [place] [address] * (ABNORMAL) Protime-INR (06/14/2025 10:43 AM CHUTE WORKER) PT 13.7(H) 10.2 - 13.5 sec INR 1.22(H) 0.90 - 1.20 [facility] Comment: Interpretive data Oral anticoagulant therapeutic ranges: Venous thromboembolism prophylaxis or treatment: 2.0-3.0 CARDIOLOGY Standard range: 2.0-3.0 High-intensity range: 2.5-3.5 Refer to indication-specific guidelines for appropriate target ranges for prosthetic heart valve replacement. Current interpretive data was last revised on 2019. Blood 06/14/2025 10:4 3 AM CHUTE WORKER 06/14/2025 11:07 AM CHUTE WORKER Nighat Dudley NP LAB BLOOD ORDERABLES Final Result Performing Organization Address [facility] Co de Phone Number [facility] [place] [address] * Magnesium (06/14/2025 10:43 AM CHUTE WORKER) Pathologist [facility] Magnesium 1.7 1.4 - 2.5 mg/dL Blood 06/14/2025 10:4 3 AM CHUTE WORKER 06/14/2025 11:07 AM CHUTE WORKER Nighat Dudley NP LAB BLOOD ORDERABLES Final Result Performing Organization Address City/[facility] Co de Phone Number [facility] [place] [address] * Comprehensive metabolic panel (06/14/2025 10:43 AM CHUTE WORKER) Sodium 139 135 - 145 mmol/L Potassium, pl 3.8 3.3 - 4.9 mmol/L [facility] Chloride 104 97 - 110 mmol/L [facility] CO2 24 22 - 32 mmol/L [facility] Anion gap 11 2 - 15 mmol/L [facility] BUN 12 6 - 25 mg/dL [facility] Creatinine 0.94 0.60 - 1.10 mg/dL [facility] Glucose 132 70 - 199 mg/dL [facility] Comment: Interpretive Data Fasting glucose >/= 126 mg/dl is diagnostic for diabetes. Fasting is defined as no caloric intake for at least 8 hours. Fasting glucose between 100 mg/dl to 125 mg/dl is diagnostic of prediabetes. In a patient with classic symptoms of hyperglycemia or hyperglycemic crisis, a random glucose >/= 200 mg/dl is diagnostic for diabetes. In the absence of unequivocal hyperglycemia, results should be confirmed by repeat testing. The classification and Diagnosis of Diabetes Diabetes Care 2021; 46: S19-S40. Current interpretive data was last revised 2022. Calcium 8.7 8.5 - 10.3 mg/dL [facility] Bilirubin, total 0.3 0.1 - 1.2 mg/dL [facility] Protein, pl 7.3 6.5 - 8.5 g/dL [facility] Albumin 3.8 3.5 - 5.0 g/dL [facility] Alk phos 92 40 - 130 Units/L [facility] ALT 13 7 - 45 Units/L [facility] AST 22 10 - 45 Units/L [facility] Blood 06/14/2025 10:4 3 AM CHUTE WORKER 06/14/2025 11:07 AM CHUTE WORKER us Nighat Dudley NP LAB BLOOD ORDERABLES Final Result [facility] One [facility] Department [place] [address] * ECG 12 lead (06/14/2025 10:38 AM CHUTE WORKER) Ventricular Rate EKG/Min 84 BPM [facility] Atrial Rate 84 BPM [facility] MT-Interval (MSEC) 170 ms [facility] QRS-Interval (MSEC) 150 ms [facility] QT-Interval (MSEC) 450 ms [facility] QTc 531 ms [facility] P Lynd 31 degrees [facility] R Lynd -32 degrees [facility] T Lynd 116 degrees [facility] Diagnosis Normal sinus rhythm Left axis deviation Left bundle branch block Abnormal ECG When compared with ECG of 02-OCT-2024 18:44, PREVIOUS ECG IS PRESENT Confirmed by URBANO SOMMERS M.D ([id number]) on 06/14/2025 3:45:59 PM [facility] 06/14/2025 10:3 8 AM CHUTE WORKER 06/14/2025 3:45 PM CHUTE WORKER us Nighat Dudley NP ECG ORDERABLES Final Resul t [facility] * TRANSCATHETER AORTIC VALVE REPLACEMENT (TAVR) OPEN FEMORAL ART APPROACH (06/14/2025 10:20 AM CHUTE WORKER) Anatomical Region Laterality Modality X-Ray Angiograph y Narrative 06/14/2025 10:37 AM CHUTE WORKER Cardiac Catheterization TAVR Transfemoral Operative Report Name: Isabel Roger Today's Date: 06/14/2025 Primary Care Provider: Gregory Banda MD Referring Provider: Procedure: 1. Temporary pacemaker 2. Ascending aortic angiography 3. Left heart catheterization 4. TAVR with 23mm Daxa ultra 5. Ilio femoral angiogram Indications: 1. Severe Aortic Stenosis Type of anesthesia: MAC. Clinical Profile: Ms. Roger is 80 y.o. female with a history of CVA and recently diagnosed severe aortic stenosis who presents for transcatheter valve replacement Procedure 1. The risks, benefits, complications, treatment options, and expected outcomes were discussed with the patient. The patient and/or family concurred with the proposed plan, giving informed consent. Patient was prepped and draped in the usual sterile fashion 2. Anesthesia was provided by the cardiac anesthesia team. 3. A micropuncture kit and ultrasound were used to obtain access the right radial artery and left femoral vein. A 6 Fr sheath was placed in the vein and a 5/6 Fr in the artery 4. A micropuncture kit and ultrasound were used to obtain access the right femoral artery, 1 Perclose was deployed. A 8 Fr sheath was inserted into the artery and was later upsized to an expandable sheath 14F. 5. Transcatheter aortic valve replacement Equipment used: 4 Fr AL2, 5 Fr angled pigtail catheter x2, 23 mm is valve, straight uniglide wire, amplatz extrastiff guidewire, exchange length wire, Safari 2 wire. Rapid ventricular pacing was performed with a balloon tip catheter for valvuloplasty, valve deployment and postdilatation. Heparin was administered for anticoagulation obtaining and ACT > 300 s. At the conclusion of the case hemostasis was achieved with the proglides as noted previously, the arterial sheath was removed and hemostasis with an 6 fr aniogseal. The venous sheath was removed and hemostasis achieved under manual compression after the administration of protamine. There were no apparent complications. Secondary to the procedural complexity, the knowledge of transcatheter valve replacement and patients multiple comorbidities, Dr Archer and Dr. Ruffin worked as cosurgeons. Results Hemodynamics: LV pressure 156/8mmHg AO Pressure 132/65mmHG Mean gradient 30mmHG Post TAVR: Mean gradient 5MmHG Procedural detail: The patient was brought into the hybrid operating room and placed under MAC anesthesia by our Cardiac Anesthesia colleagues. Patient was prepped and draped in a sterile fashion and access was obtained in the femoral arteries and vein using ultrasound guidance. The angiogram confirmed acceptable location for large-bore sheath insertion pre close and the vessel was upsized using a 7 American dilator and 1 Perclose device deployed. We then placed the 14F sheath. A AL catheter was advanced into the aortic root. A uniglide wire was utilized to traverse the aortic valve. Catheter was inserted into the LV cavity. An exchange length wire was advanced and a pigtail catheter was utilized to obtain gradients. TheSafari 2 guidwire was then advanced into the LV apex. A 23mm daxa ultra valve was advanced into the aortic position following routine technique. The valve was the positioned and deployed. Gradients were remeasured. Echocardiogram confirmed no perivalvular insufficiency The procedure was successful and hemostasis achieved as noted previously. Control angiography revealed no dissection or extravasation of contrast. Diagnostic Impression: 1) Severe aortic stenosis s/p transcatheter aortic valve replacement with a 23mm daxa ultra 2) Elevated left ventricular end-diastolic pressure consistent with diastolic heart failure Plan: 1. Bedrest x4 hours; ambulate tonight at dinner with assistance. 2. Asa daily 3. rn cardiac cath postop recovery area 4. Transfer to 5200/7200 Nicolas Archer MD Nicolas Archer MD CV CARDIAC CATH PROCEDURES F inal Result * TRANSTHORACIC ECHO (TTE) LIMITED/FOLLOW UP W LTD DOPPLER/CF WO CONTRAST (06/14/2025 10:20 AM CHUTE WORKER) Anatomical Region Laterality Modality Ultrasound 06/14/2025 10:0 3 AM CHUTE WORKER Narrative 06/14/2025 2:20 PM CHUTE WORKER [facility] [place] [address] Transthoracic Echocardiographic Report Patient Name: ISABEL ROGER J : 1945 (80y 3m) Sex: F Study Date: 06/14/2025 10:03:23 AM Ht(Inch): 64 Wt(Lb): 203.04 BSA: 1.97 Pouncing Lathe Operator: Anat Cintron RDCS Location: 5631 Order Provider: MATEUS PERERA BMI: 34.85 Ref Provider: MATEUS PERERA - PROCEDURES: Echocardiographic Report: Limited transthoracic 2D echo, includes spectral and tissue Doppler, color flow Doppler, and/or M-mode, when performed. INDICATIONS: TAVR. CONCLUSIONS: 1. Limited TTE during TAVR. 2. Post valve - mean gradient 6mmHg, no AR. ATTESTATION: I have personally reviewed and interpreted this study without fellow or resident. DISCLAIMER: The study images and the final report will be retained in the patient chart by the Echo Laboratory for the legally required time period. This chart constitutes the legal record of any testing performed. FINDINGS: Aortic Valve: The mean transaortic gradient is 6 mmHg. A bioprosthetic valve is present in the aortic position. MEASUREMENTS: Doppler Value Range AV Peak David 1.8 m/s [ 1.0 - 1.7 ] AV Peak PG 13 mmHg AV Mean PG 6 mmHg AV VTI 38 cm Electronically Signed By: Edgar Estes MD 06/14/2025 2:20:21 PM CHUTE WORKER Procedure Note Edgar Estes MD - 06/14/2025 [facility] [place] [address] Transthoracic Echocardiographic Report Patient Name: ISABEL ROGER J : 1945 (80y 3m) Sex: F Study Date: 06/14/2025 10:03:23 AM Ht(Inch): 64 Wt(Lb): 203.04 BSA: 1.97 Pouncing Lathe Operator: Anat Cintron RDCS Location: 5631 Order Provider:MATEUS PERERA BMI: 34.85 Ref Provider: MATEUS PERERA - PROCEDURES: Echocardiographic Report: Limited transthoracic 2D echo, includes spectraland tissue Doppler, color flow Doppler, and/or M-mode, when performed. INDICATIONS: TAVR. CONCLUSIONS: 1. Limited TTE during TAVR. 2. Post valve - mean gradient 6mmHg, no AR. ATTESTATION: I have personally reviewed and interpreted this study without fellow orresident. DISCLAIMER: The study images and the final report will be retained in the patientchart by the Echo Laboratory for the legally required time period. This chart constitutesthe legal record of any testing performed. FINDINGS: Aortic Valve: The mean transaortic gradient is 6 mmHg. A bioprostheticvalve is present in the aortic position. MEASUREMENTS: Doppler Value Range AV Peak David 1.8 m/s [ 1.0 - 1.7 ] AV Peak PG 13 mmHg AV Mean PG 6 mmHg AV VTI 38 cm Electronically Signed By: Edgar Estes MD 06/14/2025 2:20:21 PM CHUTE WORKER Mateus Perera MD CV ECHO PROCEDURES Final Re sult * POCT glucose (06/14/2025 10:19 AM CHUTE WORKER) Glucose, POC 136 70 - 199 mg/dL Blood 06/14/2025 10:1 9 AM CHUTE WORKER 06/14/2025 10:19 AM CHUTE WORKER Citlali Ruffin MD LAB POCT ORDERABLES - DEVICE Fin al Result Performing Organization Address [facility] Co de Phone Number [facility] Department [place] [address] * (ABNORMAL) POCT Activated clotting time, low range (06/14/2025 10:16 AM CHUTE WORKER) ACT 120(L) 123 - 168 sec POC Device Number [id number] [facility] Blood 06/14/2025 10:1 6 AM CHUTE WORKER 06/14/2025 10:16 AM CHUTE WORKER Citlali Ruffin MD LAB POCT ORDERABLES - DEVICE Fin al Result Performing Organization Address [facility]/ZIP Co de Phone Number [facility] Department [place] [address] * (ABNORMAL) POCT Activated clotting time, low range (06/14/2025 9:41 AM CHUTE WORKER) ACT >400(H) 123 - 168 sec POC Device Number [id number] [facility] Blood 06/14/2025 9:41 AM CHUTE WORKER 06/14/2025 9:41 AM CHUTE WORKER us Citlali Ruffin MD LAB POCT ORDERABLES - DEVICE Fin al Result [facility] Department [place] [address] * Airway (06/14/2025 9:20 AM CHUTE WORKER) Narrative Von Blackman MD - 06/14/2025 9:20 AM CHUTE WORKER Von Blackman MD 06/14/2025 9:21 AM Airway Patient location: OR Urgency: elective Indications for airway management: anesthesia and airway protection Difficult airway: no Staff: Placed by: Fellow: Von Blackman MD Emergent airway documentation: Risks and benefits discussed: yes Consent obtained: yes Consent given by: patient and power of senior trial attorney Airway prep: Preoxygenated: yes Patient position: sniffing Mask difficulty assessment: 1 - vent by mask Spontaneous ventilation during airway: present Sedation level during airway: GA Final airway details: Final airway type: supraglottic airway Final supraglottic airway: IGel SGA size: 4 Number of attempts: 1 Planned trial extubation: yes us Kaveh Moore MD ANESTHESIA ORDERABLES Final Res ult * POCT glucose (06/14/2025 7:15 AM CHUTE WORKER) Glucose, POC 176 70 - 199 mg/dL Blood 06/14/2025 7:15 AM CHUTE WORKER 06/14/2025 7:15 AM CHUTE WORKER us Citlali Ruffin MD LAB POCT ORDERABLES - DEVICE Fin al Result Performing Organization Address [facility]/ZIP Co de Phone Number [facility] [place] [address] * Prepare RBC: 4 Units (06/14/2025 6:37 AM CHUTE WORKER) Product code [id number] [facility] Unit Number [id number] 5-6 [facility] Product Blood Type ANEG [facility] Dispense Status RETURNED [facility] Product code [id number] Unit Number [id number] 8-J [facility] Product Blood Type ANEG [facility] Dispense Status RETURNED [facility] Product code [id number] [facility] Unit Number [id number] 7-I [facility] Product Blood Type ANEG [facility] Dispense Status RETURNED [facility] Product code [id number] [facility] Unit Number [id number] 6-4 [facility] Product Blood Type ANEG [facility] Dispense Status RETURNED [facility] Blood 06/14/2025 6:37 AM CHUTE WORKER 06/14/2025 6:37 AM CHUTE WORKER Narrative MABEL [facility] - 06/14/2025 11:18 AM CHUTE WORKER Are special requirements needed? (All products are leukoreduced and CMV- safe)->No Karlie Peguero NP BLOOD BANK PRODUCT ORDERA BLES Final Result Performing Organization Address [facility] Co de Phone Number [facility] Department [place] [address] * TYPE AND SCREEN 14 DAY (06/02/2025 4:39 PM CHUTE WORKER) ABO Rh A Negative Antonella, indirect Negative [facility] Blood 06/02/2025 4:39 PM CHUTE WORKER 06/02/2025 7:00 PM CHUTE WORKER Narrative MABEL [facility] - 06/02/2025 8:16 PM CHUTE WORKER Is this test being ordered in advance for a procedure?->Yes Expected date of procedure:->06/14/25 Has the patient been transfused in the past 3 months?->No Has the patient been in the past 3 months?->No us Karlie Ofelia Peguero NP LAB BLOOD BANK TEST ORDER LORENA Final Result Performing Organization Address City/[facility]/ZIP Co de Phone Number MABEL Rojas [facility] Department [place] [address] * (ABNORMAL) eGFR (06/02/2025 4:39 PM CHUTE WORKER) eGFR 57(L) >=60 mL/min/1. 73 m2 Comment: Interpretive Data Reference Interval Normal >/= 90 mL/min/1.73m2 Mildly decreased* 60 - 89 mL/min/1.73m2 Mildly to moderately decreased 45 - 59 mL/min/1.73m2 Moderately to severely decreased 30 - 44 mL/min/1.73m2 Severely decreased 15 - 29 mL/min/1.73m2 Kidney Failure < 15 mL/min/1.73m2 *Relative to young adult level Estimated glomerular filtration rate is determined by the 2020 CKD-EPI equation recommended by the National Kidney Foundation (A Unifying Approach to GFR Estimation: Recommendations of the NKF-ASK Task Force on Reassessing the Inclusion of Race in Diagnosing Kidney Disease, JASN 2020). The CKD-EPI equation should not be used for patients with unstable renal function and has not been validated in children and those over 70. Current interpretive data was last reviewed 2021. Blood 06/02/2025 4:39 PM CHUTE WORKER 06/02/2025 4:57 PM CHUTE WORKER us Nicolas Archer MD LAB BLOOD ORDERABLES Final R esult Performing Organization Address City/[facility]/ZIP Co de Phone Number [facility]EL [facility] [address] [facility]. Department [place] [address] * (ABNORMAL) Differential, auto (06/02/2025 4:39 PM CHUTE WORKER) Neutrophil abs 5.19 1.50 - 6.50 K/cumm Imm gran abs 0.03 0.00 - 0.10 K/cumm [facility] Lymphocyte abs 4.26(H) 0.80 - 3.30 K/cumm [facility] Monocyte abs 0.62 0.20 - 0.80 K/cumm [facility] Eosinophil abs 0.17 0.00 - 0.50 K/cumm [facility] Basophil abs 0.05 0.00 - 0.10 K/cumm [facility] Neutrophil pct 50.3 % [facility] Comment: Interpretive Data Percent cell count reference ranges are not reported, since discordance with absolute values may lead to misinterpretation of CBC data. Current Interpretive Data was last revised on 2017. Imm gran pct 0.3 % [facility] Comment: Interpretive Data Percent cell count reference ranges are not reported, since discordance with absolute values may lead to misinterpretation of CBC data. Current Interpretive Data was last revised on 2017. Lymphocyte pct 41.3 % [facility] Comment: Interpretive Data Percent cell count reference ranges are not reported, since discordance with absolute values may lead to misinterpretation of CBC data. Current Interpretive Data was last revised on 2017. Monocyte pct 6.0 % [facility] Comment: Interpretive Data Percent cell count reference ranges are not reported, since discordance with absolute values may lead to misinterpretation of CBC data. Current Interpretive Data was last revised on 2017. Eosinophil pct 1.6 % [facility] Comment: Interpretive Data Percent cell count reference ranges are not reported, since discordance with absolute values may lead to misinterpretation of CBC data. Current Interpretive Data was last revised on 2017. Basophil pct 0.5 % [facility] Comment: Interpretive Data Percent cell count reference ranges are not reported, since discordance with absolute values may lead to misinterpretation of CBC data. Current Interpretive Data was last revised on 2017. Blood 06/02/2025 4:39 PM CHUTE WORKER 06/02/2025 4:57 PM CHUTE WORKER Nicolas Archer MD LAB BLOOD ORDERABLES Final R esult [facility] [address] [address] [place] [address] * Pro B-type natriuretic peptide (06/02/2025 4:39 PM CHUTE WORKER) NT-proBNP 108 <=450 pg/mL Comment: Interpretive Comments: A. Dyspnea in Acute Care Setting All Ages: < 300 pg/ml, acute heart failure unlikely. < 50 yrs: 300 - 450 pg/ml, further investigation warranted. > 450 pg/ml, acute heart failure likely. 50 - 74 yrs: 300 - 900 pg/ml, further investigation warranted. > 900 pg/ml, acute heart failure likely . > or = 75 yrs: 450 - 1800 pg/ml, further investigation warranted. > 1800 pg/ml, acute heart failure likely. B. Non-acute Setting < 75 yrs < 125 pg/ml, rules out heart failure. > or = 125 pg/ml, further investigation warranted. > or = 75 yrs < 450 pg/ml, rules out heart failure. > or = 450 pg/ml, further investigation warranted. - Knowledge of each individual patient's NT-proBNP range may be more useful than using similar cut-points for every patient. Please note that marked elevations in NT-proBNP levels may be observed in state other than Left Ventricular Congestive Failure, including: acute coronary syndromes, right heart strain/failure (including pulmonary embolism and cor pulmonale), critical illness, renal failure, as well as advanced age. - References: 1. Brandon JL et.al. Eur Heart J. 2006:27:330-337. Tim RW, Genesis AM. J. AM James Cardiol: Cardiovasc Imag. 2009;2: 216-225. Blood 06/02/2025 4:39 PM CHUTE WORKER 06/02/2025 4:57 PM CHUTE WORKER Nicolas Archer MD LAB BLOOD ORDERABLES Final R esult [facility] [address] [address] [place] [address] * (ABNORMAL) CBC with auto differential (06/02/2025 4:39 PM CHUTE WORKER) Pathologist [facility] WBC 10.32(H) 3.80 - 9.90 K/cumm Hgb 13.7 11.9 - 15.5 g/dL [facility] Hct 42.6 35.6 - 45.5 % [facility] Plt 250 150 - 400 K/cumm [facility] MPV 9.9 9.1 - 12.3 fL [facility] RBC 4.46 3.90 - 5.20 M/cumm [facility] MCV 95.5 81.3 - 96.4 fL [facility] MCH 30.7 27.1 - 33.3 pg [facility] MCHC 32.2(L) 32.3 - 35.7 g/dL [facility] RDW CV 13.2 11.1 - 14.9 % [facility] RDW SD 46.6 35.7 - 48.1 fL [facility] NRBC abs 0.00 0.00 - 0.01 K/cumm [facility] Blood 06/02/2025 4:39 PM CHUTE WORKER 06/02/2025 4:57 PM CHUTE WORKER Nicolas Archer MD LAB BLOOD ORDERABLES Final R esult [facility] [address] [facility]. Department [place] [address] * (ABNORMAL) Lipoprotein a (LPa) (06/02/2025 4:39 PM CHUTE WORKER) Pathologist [facility] Lipoprotein A 378(H) <75 nmol/L [facility] ref Lab Comment: Lp(a) confers increased risk for coronary disease and aortic stenosis starting at concentrations of 75 nmol/L and greater. Lp(a) >=125 nmol/L is considered a risk-enhancing factor for cardiovascular disease by several professional societies. Clinician-patient discussion of therapeutic strategy is warranted. ADDITIONAL INFORMATION Please notice that Lp(a) values are reported in molar units (nmol/L). These units are recommended by professional society guidelines and expert opinion statements. Measured results and risk thresholds are higher than those generated using mass units (mg/dL). Cardiovascular risk increases starting at 75 nmol/L. Lp(a) >=125 nmol/L is considered a risk enhancing factor by the [place] [employer]. This test has been modified from the deputy jailer's instructions. Its performance characteristics were determined by [facility] in a manner consistent with CLIA requirements. This test has not been cleared or approved by the U.S. Food and Drug Administration. Test Performed by: [place] [address] Shellfish Harvester: Brandon Rose Ph.D.; CLIA# [id number] Blood 06/02/2025 4:39 PM CHUTE WORKER 06/02/2025 4:57 PM CHUTE WORKER Nicolas Archer MD LAB BLOOD ORDERABLES Final R esult Performing Organization Address [facility] Co de Phone Number [facility] [address] [place] [address] [place] [facility] * aPTT (06/02/2025 4:39 PM CHUTE WORKER) Pathologist [facility] aPTT 33 26 - 38 sec Comment: Interpretive Data Heparin therapeutic range: 66.0 - 100.0 seconds. Range based on correlation with therapeutic heparin activity range of 0.3 - 0.7 Units/mL. Blood 06/02/2025 4:39 PM CHUTE WORKER 06/02/2025 4:57 PM CHUTE WORKER Karlie Peguero NP LAB BLOOD ORDERABLES Bernadette l Result Performing Organization Address [facility]/ZIP Co de Phone Number [facility] [address] [address] [place], [place] [id number] * Protime-INR (06/02/2025 4:39 PM CHUTE WORKER) Pathologist [facility] PT 12.3 10.2 - 13.5 sec INR 1.09 0.90 - 1.20 [facility] Comment: Interpretive data Oral anticoagulant therapeutic ranges: Venous thromboembolism prophylaxis or treatment: 2.0-3.0 CARDIOLOGY Standard range: 2.0-3.0 High-intensity range: 2.5-3.5 Refer to indication-specific guidelines for appropriate target ranges for prosthetic heart valve replacement. Current interpretive data was last revised on 2019. Blood 06/02/2025 4:39 PM CHUTE WORKER 06/02/2025 4:57 PM CHUTE WORKER Nicolas Archer MD LAB BLOOD ORDERABLES Final R esult Performing Organization Address [facility] Co de Phone Number [facility] [address] [place], [place] [id number] * CRP (cardiac risk) (06/02/2025 4:39 PM CHUTE WORKER) hsCRP 0.90 mg/L Comment: Interpretive data Adult only - values greater than or equal to 10 mg/L are consistent with infection or inflammation. Individuals with evidence of active infection, systemic inflammatory processes, or trauma should not be tested until these conditions have abated. When using HS CRP to assess cardiovascular risk, two measurements should be taken, two weeks apart (averaging results). The CDC/AHA recommended the following HS CRP cut off points (tertiles) for CVD assessment. Adult low risk <1.0 mg/L Average risk 1.0 - 3.0 mg/L High Risk >3.0 mg/L Blood 06/02/2025 4:39 PM CHUTE WORKER 06/02/2025 4:57 PM CHUTE WORKER Nicolas Archer MD LAB BLOOD ORDERABLES Final R TOSA ([employer])ult Performing Organization Address [facility] Co de Phone Number [facility] [address] [place], [place] [id number] * (ABNORMAL) Hemoglobin A1c (06/02/2025 4:39 PM CHUTE WORKER) Hgb A1C 8.1(H) 4.0 - 5.6 % Estimated Average Glucose 186 mg/dL [facility]EL [facility] Comment: The ADA recommends reporting an estimated Average Glucose (eAG) with all Hemoglobin A1c results using the equation derived from a study of 507 normal and diabetic adults. Minority populations were underrepresented and children were not included. (Diabetes Care 31:0887-8036, 2008). The eAG is not equivalent to a fasting glucose. Blood 06/02/2025 4:39 PM CHUTE WORKER 06/02/2025 4:58 PM CHUTE WORKER Nicolas Archer MD LAB BLOOD ORDERABLES Final R esult [facility] [address] [facility]. [place] [address] * (ABNORMAL) Comprehensive metabolic panel (06/02/2025 4:39 PM CHUTE WORKER) Sodium 131(L) 135 - 145 mmol/L Potassium, pl 4.3 3.3 - 4.9 mmol/L [facility] Chloride 93(L) 97 - 110 mmol/L [facility] CO2 27 22 - 32 mmol/L [facility] Anion gap 11 2 - 15 mmol/L [facility] BUN 13 6 - 25 mg/dL [facility] Creatinine 1.01 0.60 - 1.10 mg/dL [facility] Glucose 105 70 - 199 mg/dL [facility] Comment: Interpretive Data Fasting glucose >/= 126 mg/dl is diagnostic for diabetes. Fasting is defined as no caloric intake for at least 8 hours. Fasting glucose between 100 mg/dl to 125 mg/dl is diagnostic of prediabetes. In a patient with classic symptoms of hyperglycemia or hyperglycemic crisis, a random glucose >/= 200 mg/dl is diagnostic for diabetes. In the absence of unequivocal hyperglycemia, results should be confirmed by repeat testing. The classification and Diagnosis of Diabetes Diabetes Care 202; 46: S19-S40. Calcium 10.0 8.5 - 10.3 mg/dL [facility] Bilirubin, total 0.6 0.1 - 1.2 mg/dL [facility] Protein, pl 8.6(H) 6.5 - 8.5 g/dL [facility] Albumin 4.4 3.5 - 5.0 g/dL [facility] Alk phos 109 40 - 130 Units/L [facility] ALT 21 7 - 45 Units/L [facility] AST 30 10 - 45 Units/L [facility] Blood 06/02/2025 4:39 PM CHUTE WORKER 06/02/2025 4:57 PM CHUTE WORKER Nicolas Archer MD LAB BLOOD ORDERABLES Final R esult MABEL [facility] [address] [facility] [employer] [place], [place] [phone] * Check Sample (05/13/2025 7:30 AM CHUTE WORKER) ABO Rh A Negative CH HCLL OTHER 05/13/2025 7:30 AM CHUTE WORKER 05/13/2025 7:47 AM CHUTE WORKER Keith Montgomery MD LAB BLOOD ORDERABLES Final Resul t Performing Organization Address [facility] Co de Phone Number MABEL BRAVO [address] Department [employer] [place], [place] [phone] CH * Potassium, whole blood (05/13/2025 7:07 AM CHUTE WORKER) Potassium, bld 4.2 3.3 - 4.9 mmol/L Comment: Interpretive Data This method is not able to assess for hemolysis, which may falsely increase potassium concentrations. If further testing is needed to evaluate this result, consider in-laboratory plasma potassium. Current Interpretive Data was last revised on 2022. Blood 05/13/2025 7:07 AM CHUTE WORKER 05/13/2025 7:33 AM CHUTE WORKER Bart Crane NP LAB BLOOD ORDERABLES Final Result Performing Organization Address City/[facility]/ZIP Co de Phone Number MABEL SHELLY [address] [address] [place] [address] * POCT glucose (05/13/2025 6:38 AM CHUTE WORKER) Glucose, POC 187 70 - 199 mg/dL Blood 05/13/2025 6:38 AM CHUTE WORKER 05/13/2025 6:38 AM CHUTE WORKER Keith Montgomery MD LAB POCT ORDERABLES - DEVICE Fin al Result Performing Organization Address [facility] de Phone Number MABEL [address]RA[address] [place] [address] * Prepare RBC: 2 Units (05/13/2025 6:35 AM CHUTE WORKER) Product code [id number] [facility] Unit Number [id number] 2-5 [facility] Product Blood Type ANEG [facility] Dispense Status RETURNED [facility] Product code [id number] Unit Number [id number] 1-1 [facility] Product Blood Type ANEG [facility] Dispense Status RETURNED [facility] Blood 05/13/2025 6:35 AM CHUTE WORKER Narrative [facility] - 05/14/2025 12:13 AM CHUTE WORKER Specify Procedure:->TAVR Are special requirements needed? (All products are leukoreduced and CMV- safe)- >No Date required:-[id number] LRRBC # of [id number] Reasons:-Hold for procedure (specify procedure)} Keith Montgomery MD BLOOD BANK PRODUCT ORDERABLES Fi nal Result Performing Organization Address [facility] de Phone Number MABEL BRA[place] [address] [address] [place] [address] * ECG 12 lead (05/10/2025 2:30 PM CHUTE WORKER) 05/10/2025 2:30 PM CHUTE WORKER Narrative [facility] - 05/10/2025 3:43 PM CHUTE WORKER Vent Rate: 75 bpm RR Interval: 792 msec MT Interval: 160 msec QRS Duration: 95 msec QT Interval: 384 msec QTC Interval: 413 msec P-R-T Lynd: 1 - -9 - 29 degrees IMPRESSION: SINUS RHYTHM LEFT VENTRICULAR HYPERTROPHY AND ST-T CHANGE POSSIBLE ANTERIOR MYOCARDIAL INFARCTION , PROBABLY OLD ABNORMAL ECG Electronically Signed By: Ish Marshall MD Keith Montgomery MD ECG ORDERABLES Final Result [facility] * XR Chest Pa Lateral 2 Views (05/10/2025 2:04 PM CHUTE WORKER) Anatomical Region Laterality Modality Body, Chest N/A Computed Radiogr aphy 05/10/2025 2:06 PM CHUTE WORKER Impressions 05/10/2025 2:06 PM CHUTE WORKER Cardiomegaly with mild vascular congestion. Electronically signed by: Narayan Jones M.D. Narrative 05/10/2025 2:06 PM CHUTE WORKER EXAMINATION: XR CHEST PA LATERAL 2 VIEWS HISTORY: The patient is a 81-year-old female who presents with pulmonary arterial hypertension. Comparison made with the previous study dated 09/26/2024. TECHNIQUE: PA and lateral view of the chest. FINDINGS: Borderline cardiomegaly with aortic atherosclerosis. Mild degree of vascular congestion. No focal consolidation. Procedure Note Narayan Jones MD - 05/10/2025 EXAMINATION: XR CHEST PA LATERAL 2 VIEWS HISTORY: The patient is a 81-year-old female who presents with pulmonary arterial hypertension. Comparison made with the previous study dated 09/26/2024. TECHNIQUE: PA and lateral view of the chest. FINDINGS: Borderline cardiomegaly with aortic atherosclerosis. Mild degree of vascular congestion. No focal consolidation. IMPRESSION: Cardiomegaly with mild vascular congestion. Electronically signed by: Narayan Jones M.D. Keith Montgomery MD IMG XR PROCEDURES Final Result * eGFR (05/10/2025 1:49 PM CHUTE WORKER) eGFR 69 >=60 mL/min/1. 73 m2 Comment: Interpretive Data Reference Interval Normal >/= 90 mL/min/1.73m2 Mildly decreased* 60 - 89 mL/min/1.73m2 Mildly to moderately decreased 45 - 59 mL/min/1.73m2 Moderately to severely decreased 30 - 44 mL/min/1.73m2 Severely decreased 15 - 29 mL/min/1.73m2 Kidney Failure < 15 mL/min/1.73m2 *Relative to young adult level Estimated glomerular filtration rate is determined by the 2020 CKD-EPI equation recommended by the National Kidney Foundation (A Unifying Approach to GFR Estimation: Recommendations of the NKF-ASK Task Force on Reassessing the Inclusion of Race in Diagnosing Kidney Disease, JASN 2020). The CKD-EPI equation should not be used for patients with unstable renal function and has not been validated in children and those over 70. Current interpretive data was last reviewed 2021. Blood 05/10/2025 1:49 PM CHUTE WORKER 05/10/2025 2:21 PM CHUTE WORKER us Keith Montgomery MD LAB BLOOD ORDERABLES Final Resul t [facility] [address] [address] Department [place] [address] * (ABNORMAL) Differential, auto (05/10/2025 1:49 PM CHUTE WORKER) Neutrophil abs 3.77 1.50 - 6.50 K/cumm Imm gran abs 0.02 0.00 - 0.10 K/cumm [facility] Lymphocyte abs 4.17(H) 0.80 - 3.30 K/cumm [facility] Monocyte abs 0.55 0.20 - 0.80 K/cumm [facility] Eosinophil abs 0.20 0.00 - 0.50 K/cumm [facility] Basophil abs 0.08 0.00 - 0.10 K/cumm [facility] Neutrophil pct 42.9 % [facility] Comment: Interpretive Data Percent cell count reference ranges are not reported, since discordance with absolute values may lead to misinterpretation of CBC data. Current Interpretive Data was last revised on 2017. Imm gran pct 0.2 % [facility] Comment: Interpretive Data Percent cell count reference ranges are not reported, since discordance with absolute values may lead to misinterpretation of CBC data. Current Interpretive Data was last revised on 2017. Lymphocyte pct 47.4 % MABEL Comment: Interpretive Data Percent cell count reference ranges are not reported, since discordance with absolute values may lead to misinterpretation of CBC data. Current Interpretive Data was last revised on 2017. Monocyte pct 6.3 % MABEL Comment: Interpretive Data Percent cell count reference ranges are not reported, since discordance with absolute values may lead to misinterpretation of CBC data. Current Interpretive Data was last revised on 2017. Eosinophil pct 2.3 % [facility]EL Comment: Interpretive Data Percent cell count reference ranges are not reported, since discordance with absolute values may lead to misinterpretation of CBC data. Current Interpretive Data was last revised on 2017. Basophil pct 0.9 % [facility] Comment: Interpretive Data Percent cell count reference ranges are not reported, since discordance with absolute values may lead to misinterpretation of CBC data. Current Interpretive Data was last revised on 2017. Blood 05/10/2025 1:49 PM CHUTE WORKER 05/10/2025 2:21 PM CHUTE WORKER us Keith Montgomery MD LAB BLOOD ORDERABLES Final Resul t M[facility]EL [address] [address] Department [place] [address] * Pro B-type natriuretic peptide (05/10/2025 1:49 PM CHUTE WORKER) NT-proBNP 155 <=450 pg/mL Comment: Interpretive Comments: A. Dyspnea in Acute Care Setting All Ages: < 300 pg/ml, acute heart failure unlikely. < 50 yrs: 300 - 450 pg/ml, further investigation warranted. > 450 pg/ml, acute heart failure likely. 50 - 74 yrs: 300 - 900 pg/ml, further investigation warranted. > 900 pg/ml, acute heart failure likely . > or = 75 yrs: 450 - 1800 pg/ml, further investigation warranted. > 1800 pg/ml, acute heart failure likely. B. Non-acute Setting < 75 yrs < 125 pg/ml, rules out heart failure. > or = 125 pg/ml, further investigation warranted. > or = 75 yrs < 450 pg/ml, rules out heart failure. > or = 450 pg/ml, further investigation warranted. - Knowledge of each individual patient's NT-proBNP range may be more useful than using similar cut-points for every patient. Please note that marked elevations in NT-proBNP levels may be observed in state other than Left Ventricular Congestive Failure, including: acute coronary syndromes, right heart strain/failure (including pulmonary embolism and cor pulmonale), critical illness, renal failure, as well as advanced age. - References: 1. Brandon BENITEZ et.al. Eur Heart J. 2006:27:330-337. 2. Tim RW, Genesis COLIN. J. AM James Cardiol: Cardiovasc Imag. 2009;2: 216- 225. Interpretive Data Last Revised Date: 2018. Blood 05/10/2025 1:49 PM CHUTE WORKER 05/10/2025 2:21 PM CHUTE WORKER us Keith Montgomery MD LAB BLOOD ORDERABLES Final Resul t [facility] [address] Department [place] [address] * CBC with auto differential (05/10/2025 1:49 PM CHUTE WORKER) WBC 8.79 3.80 - 9.90 K/cumm Hgb 13.4 11.9 - 15.5 g/dL [facility] Hct 41.0 35.6 - 45.5 % [facility] Plt 228 150 - 400 K/cumm [facility] MPV 9.4 9.1 - 12.3 fL [facility] RBC 4.32 3.90 - 5.20 M/cumm [facility] MCV 94.9 81.3 - 96.4 fL [facility] MCH 31.0 27.1 - 33.3 pg [facility] MCHC 32.7 32.3 - 35.7 g/dL [facility]DW CV 13.1 11.1 - 14.9 % [facility] SD 45.6 35.7 - 48.1 fL [facility] NRBC abs 0.00 0.00 - 0.01 K/cumm [facility] Blood 05/10/2025 1:49 PM CHUTE WORKER 05/10/2025 2:21 PM CHUTE WORKER us Keith Montgomery MD LAB BLOOD ORDERABLES Final Resul t Performing Organization Address [facility] Co de Phone Number MABEL BRAVO [address] [place] [address] * aPTT (05/10/2025 1:49 PM CHUTE WORKER) aPTT 32 26 - 38 sec Comment: Interpretive Data Heparin therapeutic range: 66.0 - 100.0 seconds. Range based on correlation with therapeutic heparin activity range of 0.3 - 0.7 Units/mL. Current interpretive data was last revised on 2023. Blood 05/10/2025 1:49 PM CHUTE WORKER 05/10/2025 2:21 PM CHUTE WORKER us Keith Montgomery MD LAB BLOOD ORDERABLES Final Resul t Performing Organization Address [facility] Co de Phone Number [place] [address] [address] [facility] [place] [address] * Protime-INR (05/10/2025 1:49 PM CHUTE WORKER) PT 12.5 10.2 - 13.5 sec INR 1.11 0.90 - 1.20 [facility] Comment: Interpretive data Oral anticoagulant therapeutic ranges: Venous thromboembolism prophylaxis or treatment: 2.0-3.0 CARDIOLOGY Standard range: 2.0-3.0 High-intensity range: 2.5-3.5 Refer to indication-specific guidelines for appropriate target ranges for prosthetic heart valve replacement. Current interpretive data was last revised on 2019. Blood 05/10/2025 1:49 PM CHUTE WORKER 05/10/2025 2:21 PM CHUTE WORKER us Keith Montgomery MD LAB BLOOD ORDERABLES Final Resul t Performing Organization Address [facility] Co de Phone Number MABEL [address] [address] [facility] [place] [address] * Type and screen (05/10/2025 1:49 PM CHUTE WORKER) ABO Rh A Negative Antonella, indirect Negative [facility] Blood 05/10/2025 1:49 PM CHUTE WORKER 05/10/2025 2:22 PM CHUTE WORKER Narrative [facility] - 05/10/2025 3:04 PM CHUTE WORKER Has the patient had Daratumumab or Isatuximab in the past 6 months?->Unknown us Keith Montgomery MD LAB BLOOD BANK TEST [place] [address] Department [place] [address] * (ABNORMAL) Comprehensive metabolic panel (05/10/2025 1:49 PM CHUTE WORKER) Sodium 128(L) 135 - 145 mmol/L Potassium, pl 4.3 3.3 - 4.9 mmol/L [facility] Comment:Hemolysis present. R esults may be affected. Chloride 94(L) 97 - 110 mmol/L [facility] CO2 19(L) 22 - 32 mmol/L [facility] Anion gap 15 2 - 15 mmol/L [facility] BUN 10 6 - 25 mg/dL [facility] Creatinine 0.86 0.60 - 1.10 mg/dL [facility] Glucose 115 70 - 199 mg/dL [facility] Comment: Interpretive Data Fasting glucose >/= 126 mg/dl is diagnostic for diabetes. Fasting is defined as no caloric intake for at least 8 hours. Fasting glucose between 100 mg/dl to 125 mg/dl is diagnostic of prediabetes. In a patient with classic symptoms of hyperglycemia or hyperglycemic crisis, a random glucose >/= 200 mg/dl is diagnostic for diabetes. In the absence of unequivocal hyperglycemia, results should be confirmed by repeat testing. The classification and Diagnosis of Diabetes Diabetes Care 2021; 46: S19-S40. Current interpretive data was last revised 2022. Calcium 9.4 8.5 - 10.3 mg/dL [facility] Bilirubin, total 0.4 0.1 - 1.2 mg/dL [facility] Protein, pl 8.3 6.5 - 8.5 g/dL [facility] Albumin 3.9 3.5 - 5.0 g/dL [facility] Alk phos 106 40 - 130 Units/L [facility] ALT 22 7 - 45 Units/L [facility] AST 38 10 - 45 Units/L [facility] Comment:Hemolysis present. R esults may be affected. Blood 05/10/2025 1:49 PM CHUTE WORKER 05/10/2025 2:21 PM CHUTE WORKER us Keith Montgomery MD LAB BLOOD ORDERABLES Final Resul t M[facility]EL [address] [address] Department [place] [address] * Lipid panel (06/21/2024 2:30 AM CHUTE WORKER) Cholesterol 149 30 - 199 mg/dL Comment: [...] on 2018. Triglycerides 114 <=149 mg/dL [facility]EL Comment: Interpretive Data Ages < [...] NCEP Expert Panel. Circulation 2004;110:227 3. Holger Kyle et al. TORO Cardiol. 2020 November 05;5(5):540-548. doi: 10.1001/jamacardio.2020.0013 Current Interpretive Data was last revised on 2024. Non-HDL Cholesterol 103 mg/dL [facility] Comment: Interpretive Data Ages < [...] ratio 3 [facility] Blood 06/21/2024 2:30 AM CHUTE WORKER 06/21/2024 3:20 AM CHUTE WORKER us Prashant Plunkett NP LAB BLOOD ORDERABLES Fin al Result [facility] [address] [facility] Department [place] [address] * Occult blood, fecal non neoplasm screening (09/27/2018 2:03 PM CDT) Stool Occult Blood POSITIVE NEGATIVE 09/27/2018 2:03 PM CDT 09/27/2018 2:26 PM CDT Narrative [facility] HISTORICAL RESULTS - 09/27/2018 2:46 PM CDT Collected By ana us Jen hernandez MD LAB BODY FLUIDS AND STOOLS ORDERABLES Final Result [facility] HISTORICAL RESULTS from Last 3 Months or Most Recently Relevant to Health Maintenance Insurance MEDICARE [facility] MEDICARE [facility] MEDICARE SUPPLEMENT MEDICARE [facility] MEDICARE SUPPLEMENT MEDICARE [facility] A[facility]NA [facility] MEDICARE [facility] MEDICARE SUPPLEMENT Advance Directives For more information, please contact: [phone] Documents on File Type Date Recorded Patient Instrument Calibrator Expl anation ADVANCE DIRECTIVE 06/23/2024 3:28 PM Nathen r of Manager Fire-Medical ADVANCE DIRECTIVE 07/13/2019 8:50 AM Raquel Sena r of Manager Fire-Medical ADVANCE DIRECTIVE 10/01/2018 12:00 AM NATHEN R OF INFORMATICA ARCHITECT FINANCIAL/MEDICAL * Full Code (Latest Code Status on File) Date Activated Date Inactivated Comments 06/14/2025 10:18 AM 06/15/2025 10:19 PM * Full Code Date Activated Date Inactivated Comments 10/14/2024 2:32 PM 10/15/2024 10:04 PM * Full Code Date Activated Date Inactivated Comments 10/03/2024 2:53 AM 10/04/2024 4:19 PM * Full Code Date Activated Date Inactivated Comments 09/27/2024 3:38 AM 09/30/2024 8:48 PM * Full Code Date Activated Date Inactivated Comments 07/09/2024 12:52 PM 07/14/2024 9:21 PM Care Teams Oven Technician Relationship Specialty Start Date End Date Gregory Banda MD [address] [facility] [address] [place] [address] PCP - General 09/30/18 Keith Montgomery MD [address] [place] [address] Consulting Physician Cardiology 05/27/25 Citlali Ruffin MD [id number] [place] [address] Surgeon Cardiothoracic Surgery 06/15/25 Nicolas Archer MD [address] [place] [address] Consulting Physician Cardiology 06/15/25
--- OUTSIDE RECORDS SUMMARY | 2025-07-07 11:37 | XMS_ITS | Clinical Summary ---
Author Organization [facility] Address [address] [place] [address] Care Team Providers Care Executor Of Estate Name Role Phone Fern Toth MD Primary Care Provider [phone] Keisha Shah MD Unavailable [phone] Allergies Active Allergy Reactions Criticality Noted Date Comments Penicillins Rash Medium 08/23/2018 Medications * This document contains information received from the source organization and may not represent a complete record from that organization. aspirin 81 MG chewable tablet Take 1 tablet daily 1 tablet 6 Active benztropine 1 MG tablet Take 1 tablet (1 mg total) by mouth 2 (two) times daily. 5 Active venlafaxine 24 hr (EFFEXOR XR) 150 MG 24 hr capsule Take 1 tablet by mouth daily. 6 Active glimepiride 4 MG tablet Take 1 tablet (4 mg total) by mouth 2 (two) times daily. 3 Active levothyroxine 125 MCG tablet Take 1 tablet (125 mcg total) by mouth daily. 6 Active metFORMIN 850 MG tablet metformin tablet 850 mg; take 1 tablet by mouth three times a day; 0; -Jun-2013; Active 3 Active nitroGLYCERIN 0.4 MG SL tablet 3 Active Omeprazole 20 MG Tab EC Take 1 tablet by mouth daily. 5 Active trifluoperazine 5 MG tablet Take 1 tablet (5 mg total) by mouth 2 (two) times daily. 6 Active zolpidem 5 MG tablet 6 Active PRAVASTATIN 40 MG tablet TAKE 1 TABLET BY MOUTH EVERY DAY 30 tablet 2 7 Active ISOSORBIDE MONONITRATE ER 30 MG 24 hr tablet TAKE 1 TABLET BY MOUTH DAILY 30 tablet 2 7 Active lisinopril 10 MG tablet Take 1 tablet (10 mg total) by mouth daily. Call to make an appointment. 10 tablet 7 Active isosorbide mononitrate ER 30 MG 24 hr tablet Take 1 tablet (30 mg total) by mouth daily. Call to make an appointment. 10 tablet 7 Active furosemide (LASIX) 20 MG tablet Take 1 tablet (20 mg total) by mouth daily. Active losartan (COZAAR) 50 MG tablet Take 1 tablet (50 mg total) by mouth daily. Active sertraline (ZOLOFT) 25 MG tablet Take 0.5 tablets (12.5 mg total) by mouth daily. Active atorvastatin (LIPITOR) 80 MG tablet Take 1 tablet (80 mg total) by mouth daily. Active donepezil (ARICEPT) 10 MG Tab Take 1 tablet (10 mg total) by mouth daily. Active melatonin 5 MG tablet Take 1 tablet (5 mg total) by mouth nightly as needed. Active Active Problems Problem Noted Date Diagnosed Date Chest pain Essential (primary) hypertension Hyperlipidemia Palpitations Family History Medical History Relation Comments No familiy history for premature vascular diseas e. Other Relation Status Comments Other Social History Tobacco Use Types Packs/Day Years Used Date Smoking Tobacco: Never Alcohol Use Standard Drinks/Week Comments No 0 (1 standard drink = 0.6 oz pur e alcohol) PHQ-2 Answer Date Recorded Patient Health Questionnaire-2 Score 0 06/04/2023 Comments Unknown Sex and Gender Information Value Date Recorded Sex Assigned at Not on file Legal Sex Female 9:52 PM CDT Gender Identity Not on file Sexual Orientation Not on file Occupation Industry Job Start Date Job End Date Not on file Not on file Not on file Not on file Last Filed Vital Signs Vital Sign Reading Time Taken Comments Blood Pressure 128/72 06/04/2023 10:39 AM [employer]IOR [employer] Pulse 60 06/04/2023 10:39 AM [employer]IOR [employer] Temperature 36.3 C (97.3 F) 06/04/2023 10:39 AM [employer]IOR [employer]ICAL PROGRAMMER Respiratory Rate 17 06/04/2023 10:39 AM [employer]IOR [employer]ICAL PROGRAMMER Oxygen Saturation 98% 06/04/2023 10:39 AM SENIOR STATISTICAL PROGRAMMER Inhaled Oxygen Concentration - - Weight 92.3 kg (203 lb 6.4 oz) 06/04/2023 10:39 AM SENIOR STAT[employer]ICAL PROGRAMMER Height 165.1 cm (5' 5) 06/04/2023 10:39 AM SENIOR STATISTICAL PROGRAMMER Body Mass Index 33.85 06/04/2023 10:39 AM SENIOR STAT[employer]ICAL PROGRAMMER Plan of Treatment Health Maintenance Due Date Last Done Comments Hepatitis C 1963 DTaP, Tdap and Td Vaccines ( 1 - Tdap) 1966 Pneumococcal Vaccine: 50+ Years (1 of 1 - PCV) 1997 Zoster Vaccines (1 of 2) 1997 Annual Medicare Wellness Visit 02/15/2012 Dexa Scan (General) 02/15/2012 RSV Immunization or 60+ Years (1 - 1-dose 75+ series) 2022 PHQ-2 (Physician [place]) 07/08/2024 COVID-19 Vaccine (4 - 2024-2 6 season) 2025 07/13/2021, 10/01/2020, 09/01/2020 Influenza Adult (#1) 2025 08/29/2013 Hepatitis A Vaccines Aged Out No long er eligible based on patient's age to complete this topic Meningococcal B Vaccine Aged Out No l onger eligible based on patient's age to complete this topic Meningococcal Vaccine Aged Out No gopal raegan eligible based on patient's age to complete this topic RSV Immunizations Under 20 Months Aged Out No longer eligible b ased on patient's age to complete this topic Insurance [facility] MEDICARE Advance Directives Documents on File Type Date Recorded Patient Utility Pipe Layer Expl anation Advance Directives and Living Will 04/19/2014 12:00 AM [employer] Care Teams Executor Of Estate Relationship Specialty [place] [id number] [facility] [id number] [place] [address] PCP - General FAMILY PRACTICE 12/07/15 Keisha Shah MD [id number] [place] [address] [place] [employer] CARDIOVASCULAR DISEASE 12/07/15
[2025-07-07 12:20] LABS: Free T4 Free Thyroxine 1.33 ng/dL (0.78-2.19)
[2025-07-07 12:42] LABS: Thyroid Stimulating Hormone 0.558 uIU/mL (0.465-4.680)
[2025-07-07 13:17] LABS: Vitamin B12 373.0 pg/mL (239-931)
== END 2025-07-07 11:14 | disposition home or self-care (01) ==
LOC: ANHLAB 11:20
PROVIDERS: PCP Family Medicine; Referring Provider Nurse Practitioner Family
DX: E11.9 Type 2 diabetes mellitus without complications (principal); I10 Essential (primary) hypertension; E78.5 Hyperlipidemia, unspecified; E03.9 Hypothyroidism, unspecified; E55.9 Vitamin D deficiency, unspecified; R53.83 Other fatigue
CPT/HCPCS: 36415; 82607; 82746; 84439; 84443